=== PATIENT | male | born 1950 | race Caucasian/White ===

== ENCOUNTER 2021-08-23 07:32 | Outpatient (REF) | payer MEDICARE, OTHER, SELFPAY ==
[2021-08-23 10:06] LABS: MANUAL DIFF FLAG NO
[2021-08-23 10:10] LABS: Basophils Percent Auto 0.4 % (0-2); Eosinophils Absolute Auto 0.2 X10*3/uL (0.0-0.4); Eosinophils Percent Auto 2.9 % (0-4); Hematocrit 42.5 % (42-52); Hemoglobin 14.4 g/dl (14.0-18.0); Imm Gran Abs Auto 0.06 X10*3/uL (0.00-0.03); Imm Gran Pct Auto 0.8 % (0.0-0.4); Lymphocytes Absolute Auto 1.3 X10*3/uL (1.2-4.9); Lymphocytes Percent Auto 16.4 % (20-40); Mean Corpuscular HGB Conc 33.9 g/dl (31.0-36.0); Mean Corpuscular Hemoglobin 31.4 pg (27.0-33.0); Mean Corpuscular Volume 92.8 fL (80-98); Mean Platelet Volume 10.4 fL (9.4-12.4); Monocytes Absolute Auto 0.7 X10*3/uL (0.1-1.2); Monocytes Percent Auto 9.4 % (2-11); Neutrophils Absolute Auto 5.5 X10*3/uL (2.0-8.3); Neutrophils Percent Auto 70.1 % (45-73); Platelet Count 186 X10*3/uL (160-400); Red Blood Count 4.58 X10*6/uL (4.60-5.80); Red Cell Distribution Width 12.4 % (11.0-16.0); White Blood Count 7.9 X10*3/uL (4.8-10.8)
[2021-08-23 10:44] LABS: Alanine Aminotransferase 16 U/L (0-40); Albumin Level 4.5 g/dL (3.5-5.0); Alkaline Phosphatase 58 U/L (39-117); Anion Gap 13 (12-20); Aspartate Amino Transferase 17 U/L (5-37); Bilirubin Total 0.7 mg/dL (0.0-1.0); Blood Urea Nitrogen 23 mg/dL (9-16); Calcium 9.4 mg/dL (8.4-10.2); Carbon Dioxide 28 mmol/L (22-29); Chloride 106 mmol/L (96-108); Cholesterol 85 mg/dL; Estimated Glomerular Filt Rate 51; Glucose Fasting 99 mg/dL (60-99); HDL Cholesterol 32 mg/dL; LDL Cholesterol Calculated 38 mg/dl; Potassium 5.1 mmol/L (3.3-5.1); Sodium 142 mmol/L (135-145); Total Protein 7.3 g/dL (6.5-8.0); Triglycerides 75 mg/dL
[2021-08-23 11:00] LABS: Estimated Average Glucose 151 mg/dL; Hemoglobin A1c % 6.9 %
[2021-08-23 11:03] LABS: Prostate Specific Antigen Scr 0.67 ng/mL (<0.05-4.0)
== END 2021-08-23 07:33 | disposition home or self-care (01) ==
LOC: HO.10HDL 07:32
PROVIDERS: Visit Provider Internal Medicine
DX: E11.9 Type 2 diabetes mellitus without complications (principal); I10 Essential (primary) hypertension; Z86.73 Personal history of transient ischemic attack (TIA), and cerebral infarction without residual deficits; Z12.5 Encounter for screening for malignant neoplasm of prostate
CPT/HCPCS: 36415; 80053; 80061; 83036; 84153; 85025

== ENCOUNTER 2021-12-01 08:16 | Outpatient (REF) | payer MEDICARE, OTHER, SELFPAY ==
[2021-12-01 11:03] LABS: Anion Gap 10 (12-20); Blood Urea Nitrogen 25 mg/dL (9-16); Calcium 9.4 mg/dL (8.4-10.2); Carbon Dioxide 29 mmol/L (22-29); Chloride 104 mmol/L (96-108); Estimated Glomerular Filt Rate 43; Glucose Random 307 mg/dL (60-115); Potassium 5.2 mmol/L (3.3-5.1); Sodium 138 mmol/L (135-145)
[2021-12-01 11:37] LABS: Estimated Average Glucose 163 mg/dL; Hemoglobin A1c % 7.3 %
== END 2021-12-01 08:17 | disposition home or self-care (01) ==
LOC: HO.10HDL 08:16
PROVIDERS: Visit Provider Internal Medicine
DX: I12.9 Hypertensive chronic kidney disease with stage 1 through stage 4 chronic kidney disease, or unspecified chronic kidney disease (principal); N18.9 Chronic kidney disease, unspecified; E11.22 Type 2 diabetes mellitus with diabetic chronic kidney disease; Z86.73 Personal history of transient ischemic attack (TIA), and cerebral infarction without residual deficits
CPT/HCPCS: 36415; 80048; 83036

== ENCOUNTER 2022-03-20 07:30 | Outpatient (REF) | payer MEDICARE, OTHER, SELFPAY ==
[2022-03-20 10:17] LABS: MANUAL DIFF FLAG NO
[2022-03-20 10:28] LABS: Basophils Percent Auto 0.6 % (0-2); Eosinophils Absolute Auto 0.3 X10*3/uL (0.0-0.4); Eosinophils Percent Auto 3.7 % (0-4); Hematocrit 41.3 % (42.0-52.0); Hemoglobin 13.9 g/dl (14.0-18.0); Imm Gran Abs Auto 0.03 X10*3/uL (0.00-0.03); Imm Gran Pct Auto 0.4 % (0.0-0.4); Lymphocytes Absolute Auto 1.1 X10*3/uL (1.2-4.9); Mean Corpuscular HGB Conc 33.7 g/dl (31.0-36.0); Mean Corpuscular Hemoglobin 31.8 pg (27.0-33.0); Mean Corpuscular Volume 94.5 fL (80.0-98.0); Mean Platelet Volume 10.7 fL (9.4-12.4); Monocytes Absolute Auto 0.6 X10*3/uL (0.1-1.2); Monocytes Percent Auto 8.2 % (2-11); Neutrophils Absolute Auto 4.9 x10*3/uL (2.0-8.3); Neutrophils Percent Auto 71.1 % (45-73); Platelet Count 182 X10*3/uL (160-400); Red Blood Count 4.37 X10*6/uL (4.60-5.80); Red Cell Distribution Width 12.2 % (11.0-16.0)
[2022-03-20 10:43] LABS: Estimated Average Glucose 169 mg/dL; Hemoglobin A1c % 7.5 %
[2022-03-20 11:05] LABS: Alanine Aminotransferase 22 U/L (0-40); Albumin Level 4.1 g/dL (3.5-5.0); Alkaline Phosphatase 56 U/L (39-117); Anion Gap 14 (12-20); Aspartate Amino Transferase 20 U/L (5-37); Bilirubin Total 0.6 mg/dL (0.0-1.0); Blood Urea Nitrogen 31 mg/dL (9-16); Calcium 9.3 mg/dL (8.4-10.2); Carbon Dioxide 24 mmol/L (22-29); Chloride 104 mmol/L (96-108); Estimated Glomerular Filt Rate 38; Glucose Random 289 mg/dL (60-115); Potassium 6.1 mmol/L (3.3-5.1); Sodium 136 mmol/L (135-145); Total Protein 7.1 g/dL (6.5-8.0)
== END 2022-03-20 07:31 | disposition home or self-care (01) ==
LOC: HO.10HDL 07:30
PROVIDERS: Visit Provider Internal Medicine
DX: E11.22 Type 2 diabetes mellitus with diabetic chronic kidney disease (principal); I12.9 Hypertensive chronic kidney disease with stage 1 through stage 4 chronic kidney disease, or unspecified chronic kidney disease; N18.9 Chronic kidney disease, unspecified
CPT/HCPCS: 36415; 80053; 83036; 85025

== ENCOUNTER 2022-03-22 07:35 | Outpatient (REF) | payer MEDICARE, OTHER, SELFPAY ==
[2022-03-22 10:37] LABS: Anion Gap 15 (12-20); Blood Urea Nitrogen 30 mg/dL (9-16); Calcium 9.3 mg/dL (8.4-10.2); Carbon Dioxide 22 mmol/L (22-29); Chloride 106 mmol/L (96-108); Estimated Glomerular Filt Rate 40; Glucose Random 195 mg/dL (60-115); Potassium 5.3 mmol/L (3.3-5.1); Sodium 138 mmol/L (135-145)
== END 2022-03-22 07:36 | disposition home or self-care (01) ==
LOC: HO.10HDL 07:35
PROVIDERS: Visit Provider Internal Medicine
DX: E87.5 Hyperkalemia (principal)
CPT/HCPCS: 36415; 80048

== ENCOUNTER 2022-05-03 07:47 | Outpatient (REF) | payer MEDICARE, OTHER, SELFPAY ==
[2022-05-03 10:45] LABS: Alanine Aminotransferase 18 U/L (0-40); Albumin Level 4.3 g/dL (3.5-5.0); Alkaline Phosphatase 56 U/L (39-117); Anion Gap 13 (12-20); Aspartate Amino Transferase 16 U/L (5-37); Bilirubin Total 0.6 mg/dL (0.0-1.0); Blood Urea Nitrogen 31 mg/dL (9-16); Calcium 9.4 mg/dL (8.4-10.2); Carbon Dioxide 28 mmol/L (22-29); Chloride 103 mmol/L (96-108); Estimated Glomerular Filt Rate 35; Glucose Random 276 mg/dL (60-115); Potassium 5.6 mmol/L (3.3-5.1); Sodium 138 mmol/L (135-145); Total Protein 7.2 g/dL (6.5-8.0)
[2022-05-03 10:49] LABS: Estimated Average Glucose 157 mg/dL; Hemoglobin A1c % 7.1 %
== END 2022-05-03 07:48 | disposition home or self-care (01) ==
LOC: HO.10HDL 07:47
PROVIDERS: Visit Provider Internal Medicine
DX: E11.22 Type 2 diabetes mellitus with diabetic chronic kidney disease (principal); N18.9 Chronic kidney disease, unspecified
CPT/HCPCS: 36415; 80053; 83036

== ENCOUNTER 2022-07-05 09:49 | Outpatient (REF) | payer MEDICARE, OTHER, SELFPAY ==
[2022-07-05 10:51] LABS: MANUAL DIFF FLAG NO
[2022-07-05 11:02] LABS: Basophils Percent Auto 0.4 % (0-2); Eosinophils Absolute Auto 0.1 X10*3/uL (0.0-0.4); Eosinophils Percent Auto 1.1 % (0-4); Hematocrit 40.1 % (42.0-52.0); Hemoglobin 13.7 g/dl (14.0-18.0); Imm Gran Abs Auto 0.07 X10*3/uL (0.00-0.03); Imm Gran Pct Auto 0.9 % (0.0-0.4); Lymphocytes Absolute Auto 0.9 X10*3/uL (1.2-4.9); Lymphocytes Percent Auto 12.4 % (20-40); Mean Corpuscular HGB Conc 34.2 g/dl (31.0-36.0); Mean Corpuscular Hemoglobin 31.6 pg (27.0-33.0); Mean Corpuscular Volume 92.6 fL (80.0-98.0); Mean Platelet Volume 9.6 fL (9.4-12.4); Monocytes Absolute Auto 0.7 X10*3/uL (0.1-1.2); Monocytes Percent Auto 8.9 % (2-11); Neutrophils Absolute Auto 5.6 x10*3/uL (2.0-8.3); Neutrophils Percent Auto 76.3 % (45-73); Platelet Count 298 X10*3/uL (160-400); Red Blood Count 4.33 X10*6/uL (4.60-5.80); Red Cell Distribution Width 11.9 % (11.0-16.0); White Blood Count 7.4 X10*3/uL (4.8-10.8)
[2022-07-05 11:09] LABS: Estimated Average Glucose 174 mg/dL; Hemoglobin A1c % 7.7 %
[2022-07-05 11:21] LABS: Alanine Aminotransferase 50 U/L (0-40); Albumin Level 4.3 g/dL (3.5-5.0); Alkaline Phosphatase 53 U/L (39-117); Aspartate Amino Transferase 23 U/L (5-37); Bilirubin Total 0.4 mg/dL (0.0-1.0); Blood Urea Nitrogen 34 mg/dL (9-16); Calcium 9.2 mg/dL (8.4-10.2); Estimated Glomerular Filt Rate 36; Glucose Random 283 mg/dL (60-115); Total Protein 7.3 g/dL (6.5-8.0)
[2022-07-05 11:36] LABS: Anion Gap 15 (12-20); Carbon Dioxide 26 mmol/L (22-29); Chloride 104 mmol/L (96-108); Potassium 6.9 mmol/L (3.3-5.1); Sodium 138 mmol/L (135-145)
== END 2022-07-05 09:50 | disposition home or self-care (01) ==
LOC: HO.10HDL 09:49
PROVIDERS: Visit Provider Internal Medicine
DX: Z13.89 Encounter for screening for other disorder (principal)
CPT/HCPCS: 36415; 80053; 83036; 85025

== ENCOUNTER 2022-07-05 17:02 | Emergency (ER) | payer MEDICARE, OTHER, SELFPAY ==
[2022-07-05 17:44] VITALS: BP 214/104; PULSE 90; RESP 18; TEMP 37.1; O2SAT 97; BMI 25.8
--- NOTE | 2022-07-05 17:47 | ECG_ITS ---
Test Reason : hpyertention / high potassium Blood Pressure : / mmHG Vent. Rate : 096 BPM Atrial Rate : 096 BPM P-R Int : 158 ms QRS Dur : 126 ms QT Int : 372 ms P-R-T Axes : 043 050 035 degrees QTc Int : 469 ms Normal sinus rhythm Right bundle branch block Abnormal ECG No previous ECGs available Referred By: Generic ED Physician Electronically Signed By:LESLEE CHAPIN
[2022-07-05 17:59] LABS: MANUAL DIFF FLAG NO
[2022-07-05 18:02] LABS: Basophils Percent Auto 0.3 % (0-2); Eosinophils Absolute Auto 0.1 X10*3/uL (0.0-0.4); Eosinophils Percent Auto 1.1 % (0-4); Hematocrit 39.8 % (42.0-52.0); Hemoglobin 13.4 g/dl (14.0-18.0); Imm Gran Abs Auto 0.05 X10*3/uL (0.00-0.03); Imm Gran Pct Auto 0.6 % (0.0-0.4); Lymphocytes Absolute Auto 1.1 X10*3/uL (1.2-4.9); Lymphocytes Percent Auto 14.3 % (20-40); Mean Corpuscular HGB Conc 33.7 g/dl (31.0-36.0); Mean Corpuscular Hemoglobin 31.3 pg (27.0-33.0); Mean Platelet Volume 9.1 fL (9.4-12.4); Monocytes Absolute Auto 0.7 X10*3/uL (0.1-1.2); Monocytes Percent Auto 9.3 % (2-11); Neutrophils Absolute Auto 5.9 x10*3/uL (2.0-8.3); Neutrophils Percent Auto 74.4 % (45-73); Platelet Count 281 X10*3/uL (160-400); Red Blood Count 4.28 X10*6/uL (4.60-5.80); White Blood Count 7.9 X10*3/uL (4.8-10.8)
--- NOTE | 2022-07-05 18:13 | ED_ITS ---
HPI - General Adult General Chief complaint: Recheck/Abnormal Lab/Rx Stated complaint: abnormal labs sent by dr Montague Seen by Provider: 07/05/22 17:58 Source: patient Mode of arrival: ambulatory Limitations: no limitations History of Present Illness HPI narrative: Patient comes to the emergency room after he has his physical exam today. Blood was drawn, he was told that his potassium was 6.9 and it took him to the emergency room. Patient states that he is asymptomatic. Patient states in the past he has been told multiple times that his potassium has been high, asked to go to the lab for return labs, patient over her back. Patient denies any chest pain or shortness of breath. Reviewing possibilities of patient's source of hyperkalemia, patient takes lisinopril daily, eats bananas and tomatoes daily and protein shakes without a high amount of potassium Related Data Previous Rx's Medication Instructions Recorded amlodipine 10 mg tablet 10 mg PO DAILY #30 tabs 07/05/22 Allergies Allergy/AdvReac Type Severity Reaction Status Date / Time No Known Allergies Allergy Verified 07/05/22 17:44 Review of Systems Review of Systems: Constitutional : No Weight loss, No Fever, No Chills, No Night Sweats, No Fatigue, No Malaise ENT/Mouth : No Hearing loss, No Ear Pain, No Nasal Congestion, No Sinus Pain, No Hoarseness, No sore throat, No Rhinorrhea, No Swallowing Difficulty Eyes: No Eye Pain, No Swelling, No Redness, No Foreign Body, No Discharge, No Vision Changes Cardiovascular : No Chest Pain, No SOB, No Dyspnea on Exertion, No Orthopnea, No Edema, No Palpitations Respiratory : No Cough, No Sputum, No Wheezing, No Smoke Exposure, No Dyspnea Gastrointestinal : No Nausea, No Vomiting, No Diarrhea, No Constipation, No abdominal Pain, No Hematochezia, No Melena Genitourinary : no irregular bleeding, No Dysuria, No Urinary Frequency, No Hematuria, No Urinary Incontinence, No Urgency, No Flank Pain, No Urinary Flow Changes, No Hesitancy Musculoskeletal : No joint pain, No Myalgias, No Joint Swelling Skin : No Skin Lesions, No rash Neuro : No Weakness, No Numbness, No Paresthesias, No Loss of Consciousness, No Dizziness, No Headache Psych : No Anxiety/Panic, No Depression, No SI/HI/AH/VH, No Social Issues, Heme/Lymph: No Bruising, No Bleeding,No Lymphadenopathy Endocrine : No Polyuria, No Polydipsia, No Temperature Intolerance REPLACED BY [facility] Past Medical History Medical History Hypertension Social History Social History Advance Directives: No Advance Directives Information Provided: No Physical Exam ED Vital Signs: Vital Signs - 24 hr 07/05/22 17:44 07/05/22 18:43 07/05/22 20:16 Temperature 98.8 F Pulse Rate 90 89 99 Respiratory Rate 18 18 18 Blood Pressure 214/104 H 183/88 H Pulse Oximetry 97 Oxygen Delivery Method Room Air BMI result Body Mass Index 25.8 Const Other: Appearance: Alert. Oriented X3. No acute distress. Eyes: Pupils equal, round and reactive to light. ENT: Pharynx normal. Neck: Normal inspection. Neck supple. No lymph nodes noted. No crepitus CVS: Normal heart rate and rhythm. Pulses normal. Normal S1 and S2 Respiratory: No respiratory distress. Breath sounds normal. No Wheezing. No rales Abdomen: Soft and nontender. No rigidity. No distention. Skin: Skin warm and dry. Normal skin color. Normal skin turgor. Extremities: No lower extremity edema. No Lacerations. No Rash Neuro: Oriented X 3. No motor deficit. No sensory deficit. Moving all ex tremities. No slurred speech. CN 2 through 12 grossly intact Psych: calm, cooperative, normal affect Course Course Course Narrative: Patient's blood pressure is 214/104. EKG does not show any peaked T-waves. Patient is asymptomatic. Repeat labs are pending. Patient's repeat potassium is 7.0. We will go ahead and treat. Patient will receive IV fluids, albuterol neb, 2 g of calcium gluconate, D50 and insulin and an amp of sodium bicarb, patient remains asymptomatic Patient's blood pressure remains 214 systolic patient receiving p.o. labetalol. I discussed with the patient that we will change his blood pressure medication, take lisinopril, likely contributing to the hyperkalemia. Patient's potassium improved to 5.3. Patient remains asymptomatic. Patient will be starting tomorrow amlodipine. Medical Decision Making Lab Data Result diagrams: 07/05/22 17:54 07/05/22 20:24 Labs: Lab Results 07/05/22 07/05/22 07/05/22 Range/Units 17:54 17:54 17:54 WBC 7.9 (4.8-10.8) X10*3/uL RBC 4.28 L (4.60-5.80) X10*6/uL Hgb 13.4 L (14.0-18.0) g/dl Hct 39.8 L (42.0-52.0) % MCV 93.0 (80.0-98.0) fL MCH 31.3 (27.0-33.0) pg MCHC 33.7 (31.0-36.0) g/dl RDW 12.0 (11.0-16.0) % Plt Count 281 (160-400) X10*3/uL MPV 9.1 L (9.4-12.4) fL Immature Gran % (Auto) 0.6 H (0.0-0.4) % Neut % (Auto) 74.4 H (45-73) % Lymph % (Auto) 14.3 L (20-40) % [place] % (Auto) 9.3 (2-11) % Eos % (Auto) 1.1 (0-4) % Baso % (Auto) 0.3 (0-2) % Lymph # (Auto) 1.1 L (1.2-4.9) X10*3/uL [place] # (Auto) 0.7 (0.1-1.2) X10*3/uL Eos # (Auto) 0.1 (0.0-0.4) X10*3/uL Baso # (Auto) 0.0 (0.0-0.2) X10*3/uL Abs Immat Gran (auto) 0.05 H (0.00-0.03) X10*3/uL Absolute Neuts (auto) 5.9 (2.0-8.3) x10*3/uL Absolute Nucleated RBC 0.000 (0.0-0.012) X10*3/uL Nucleated RBC % (auto) 0.0 (0.0-0.2) /100WBC Sodium 141 (135-145) mmol/L Potassium 7.0 H* (3.3-5.1) mmol/L Chloride 107 (96-108) mmol/L Carbon Dioxide 25 (22-29) mmol/L Anion Gap 16 (12-20) BUN 34 H (9-16) mg/dL Creatinine 1.80 H (0.5-1.4) mg/dL Estim Creat Clear Calc 38.3 Estimated GFR 37 Random Glucose 143 H D (60-115) mg/dL Calcium 9.0 (8.4-10.2) mg/dL Troponin I High Sens 4.5 (<3.5-35.0) ng/L 07/05/22 Range/Units 20:24 WBC (4.8-10.8) X10*3/uL RBC (4.60-5.80) X10*6/uL Hgb (14.0-18.0) g/dl Hct (42.0-52.0) % MCV (80.0-98.0) fL MCH (27.0-33.0) pg MCHC (31.0-36.0) g/dl RDW (11.0-16.0) % Plt Count (160-400) X10*3/uL MPV (9.4-12.4) fL Immature Gran % (Auto) (0.0-0.4) % Neut % (Auto) (45-73) % Lymph % (Auto) (20-40) % [place] % (Auto) (2-11) % Eos % (Auto) (0-4) % Baso % (Auto) (0-2) % Lymph # (Auto) (1.2-4.9) X10*3/uL [place] # (Auto) (0.1-1.2) X10*3/uL Eos # (Auto) (0.0-0.4) X10*3/uL Baso # (Auto) (0.0-0.2) X10*3/uL Abs Immat Gran (auto) (0.00-0.03) X10*3/uL Absolute Neuts (auto) (2.0-8.3) x10*3/uL Absolute Nucleated RBC (0.0-0.012) X10*3/uL Nucleated RBC % (auto) (0.0-0.2) /100WBC Sodium 142 (135-145) mmol/L Potassium 5.3 H D (3.3-5.1) mmol/L Chloride 107 (96-108) mmol/L Carbon Dioxide 28 (22-29) mmol/L Anion Gap 12 (12-20) BUN 32 H (9-16) mg/dL Creatinine 1.80 H (0.5-1.4) mg/dL Estim Creat Clear Calc 38.3 Estimated GFR 37 Random Glucose 235 H D (60-115) mg/dL Calcium 8.9 (8.4-10.2) mg/dL Troponin I High Sens (<3.5-35.0) ng/L Critical Care Time Critical Care Time Critical Care Time: Yes Total Critical Care Time: 40 Attestation: I have personally provided critical care time. Time includes review of lab data, radiology results, discussion with consultants, and monitoring for potential decompensation. Intervention performed as documented. Discharge Plan Discharge Clinical Impression: Acute hyperkalemia, Hypertension Patient Disposition: Home, Self-Care Instructions: Hyperkalemia (ED) Additional Instructions: Please avoid foods high in potassium such as beans, potatoes, squash, spinach, broccoli, avocado, bananas. Please follow-up with your primary care physician tomorrow. If you have any worsening or new symptoms, please return to the emergency room or call 911 Prescriptions: New amlodipine 10 mg tablet 10 mg PO DAILY Qty: 30 1RF
[2022-07-05 18:20] LABS: Troponin-I High Sensitivity 4.5 ng/L (<3.5-35.0)
[2022-07-05 18:26] LABS: Anion Gap 16 (12-20); Blood Urea Nitrogen 34 mg/dL (9-16); Carbon Dioxide 25 mmol/L (22-29); Chloride 107 mmol/L (96-108); Creatinine Clr Calc Pharmacy 38.3; Estimated Glomerular Filt Rate 37; Glucose Random 143 mg/dL (60-115); Sodium 141 mmol/L (135-145)
[2022-07-05] MEDS: Albuterol Sulfate (0.083%) 2.5 MG/3 ML VIAL.NEB INHALE (18:42)
[2022-07-05 18:43] VITALS: PULSE 89; RESP 18; O2SAT 97
[2022-07-05] MEDS: Labetalol HCL 100 MG TABLET PO (18:59)
[2022-07-05] MEDS: Calcium Gluconate/NaCl,Iso-Osm 2 GM/100 ML PLAST..BAG IV (18:59)
[2022-07-05] MEDS: 0.9 % Sodium Chloride 1,000 ML 999 ML IVCONT (18:59)
[2022-07-05] MEDS: Sodium Bicarbonate 8.4% 50 MEQ/50 ML SYRINGE IVPUSH (19:00)
[2022-07-05] MEDS: Insulin Regular, Human 100 UNIT/ML 3 ML VIAL 10 UNIT IVPUSH (19:13)
[2022-07-05] MEDS: Dextrose 50 % 25 GM/50 ML SYRINGE IVPUSH (19:15)
[2022-07-05 20:16] VITALS: BP 183/88; PULSE 99; RESP 18
[2022-07-05 20:58] LABS: Anion Gap 12 (12-20); Blood Urea Nitrogen 32 mg/dL (9-16); Calcium 8.9 mg/dL (8.4-10.2); Carbon Dioxide 28 mmol/L (22-29); Chloride 107 mmol/L (96-108); Creatinine Clr Calc Pharmacy 38.3; Estimated Glomerular Filt Rate 37; Glucose Random 235 mg/dL (60-115); Potassium 5.3 mmol/L (3.3-5.1); Sodium 142 mmol/L (135-145)
== END 2022-07-05 22:32 | disposition home or self-care (01) ==
PROVIDERS: Emergency Provider Emergency Medicine; PCP Internal Medicine
DX: E87.5 Hyperkalemia (principal); I10 Essential (primary) hypertension
CPT/HCPCS: 36415; 80048; 80053; 83036; 84484; 85025; 93005; 94640; 96374; 96375; 99284; 99285; J0610

== ENCOUNTER 2025-04-10 10:25 | Outpatient (AMB) | payer MEDICARE, OTHER, SELFPAY ==
--- NOTE | 2025-04-10 10:29 | AM.OFFWIN_ITS ---
Intake Vital Signs 04/10/25 10:38 04/10/25 10:53 Weight 164 lb BP 200/100 H 180/90 H Blood Pressure Location Lt brachial Lt brachial Position Sitting Sitting Pulse 132 H 126 H Pulse Source Pulse Oximeter Pulse Oximetry (%) 97 Oxygen Delivery Method Room Air Intake Visit Reasons: [employer] GENERAL BP & sugar check Intake Note: Patient here for difficulty word finding that started yesterday. Patient Tobacco Use Status: Former Tobacco user Allergies No Known Allergies Allergy (Verified 04/10/25 10:42) Do you need a note to return to daycare/school/sports/work: No HPI HPI Comments History of Present Illness Details 74 y/o Male patient who presents to the walk in clinic with c/o difficulty word finding and speech changes since Yesterday. Pt accompanied by who provides history today. Pt does have h/o Seizures, T2DM on Insulin, HTN and HDL. Pt has not seen his PCP since 2021 (His PCP Retired). Per he has been compliant with his medications. He does give himself Insulin 20 units every morning 11 am - he has received it today because he came to the walk in clinic for check up. In-office BG check >HHHH on Glucometer unable to determine. BP reading and HR this Morning elevated. Per Patient is compliant with his medication regiment. Pt denies Headaches, Dizziness, CP, paralysis or SOB. Pt is visually unable to form and find words when asked questions. Neuro exam WNL. [facility], [facility] Medical History (Updated 04/10/25 @ 11:46 by Fara Vernon, VAISHNAVI) Word finding difficulty Hypertension Social History Patient Tobacco Use Status: Former Tobacco user Review of Systems Const All systems reviewed & are unremarkable except as noted in HPI and below Neuro Reports Abnormal speech present Physical Exam Vital Signs: Last Vital Signs Pulse 126 H 04/10/25 10:53 BP 180/90 H 04/10/25 10:53 Pulse Ox 97 04/10/25 10:38 Oxygen Delivery Method Room Air 04/10/25 10:38 Const Other: Word finding difficult - Pt frustrated at times. Patient sitting on exam table, comfortable and no acute distress. General: comfortable, no acute distress, alert and awake Nutritional Appearance: thin HEENT Head: Yes normocephalic Ears: external ears normal General nose exam: Normal external nose present Face and sinus: Yes normal facial exam and Yes face symmetric Eyes Pupils: Equal, round and reactive pupils present Resp Effort & Inspection: normal respiratory effort Auscultation: clear to auscultation bilaterally Cardio Heart sounds: S1 normal heart sound present and S2 normal heart sound present Neuro General: gait normal and moves all extremities Cranial nerves: Yes Equal, round and reactive pupils present Speech: Abnormal speech present stuttering Details: anomia Motor exam (neuro): 5/5 motor strength present throughout Assessment & Plan Assessment & Plan (1) Word finding difficulty: Code(s): R47.89 - Other speech disturbances Plan: Advised Pt to go to ED for further evaluation. In office BG machine unable to register. Pt has not received his Morning Insulin. Usually gives himself 20 units every 11 am. DDx's: ?Stroke vs Seizure vs Hyperglycemia vs HTN crisis Coding Level of Care Code New Pt Level 5 (58633) Diagnoses Word finding difficulty R47.89 Time Spent (min) 25
[2025-04-10 10:38] VITALS: BP 200/100; PULSE 132; O2SAT 97
[2025-04-10 10:53] VITALS: BP 180/90; PULSE 126
== END 2025-04-10 11:14 | disposition home or self-care (01) ==
PROVIDERS: PCP Internal Medicine; Visit Provider Nurse Practitioner Family
DX: R47.89 Other speech disturbances (principal)

== ENCOUNTER → 2025-04-10 10:25 | Outpatient (BNVA) | payer MEDICARE, OTHER, SELFPAY | PROVIDERS: PCP Internal Medicine; Visit Provider Nurse Practitioner Family | DX: Z13.89 Encounter for screening for other disorder (principal) | CPT/HCPCS: 99202 ==

== ENCOUNTER 2025-04-10 11:34 | Inpatient (IN) | payer MEDICARE, OTHER, SELFPAY ==
[2025-04-10] VITALS (8 sets, daily range): BP systolic 162–202; BP diastolic 78–110; PULSE 95–132; RESP 18; TEMP 36.3–37.2; O2SAT 94–97; BMI 26.2
--- NOTE | ~2025-04-10 | CT_ITS ---
EXAMINATION: CT HEAD WITHOUT IV CONTRAST STROKE HISTORY: expressive aphasia. TECHNIQUE: Unenhanced helical CT of the head was performed per standard departmental protocol. Coronal and sagittal reformats of the head were also evaluated. One or more of the following techniques was used for dose reduction: Automated exposure control, adjustment of the mA and/or kV according to patient size, use of iterative reconstruction technique. DLP: 1100 mGy-cm COMPARISON: There are no prior studies for comparison. FINDINGS: BRAIN: There is diffuse prominence of the ventricular system and cortical sulci, consistent with atrophy. Periventricular and subcortical white matter hypodensities are noted which are nonspecific, but often seen in the setting of small vessel ischemic disease. There is no mass effect or midline shift. No intra- or extra-axial fluid collections are identified. SINUSES: The visualized paranasal sinuses are clear. The mastoid air cells and middle ear cavities are well pneumatized. ORBITS: The visualized orbits are unremarkable. BONES/SOFT TISSUES: The extracranial soft tissues are unremarkable. The calvarium is intact. No suspicious lytic or sclerotic lesions. CT/CT head for STROKE IMPRESSION: No acute intracranial abnormality. These findings were discussed with WILLA Lobo in the emergency room on 04/10/2025 at 12:30 PM. Electronically signed by: Arben Villarreal MD 04/10/2025 12:31 PM EDT
--- NOTE | ~2025-04-10 | MR_ITS ---
EXAMINATION: MR BRAIN WITHOUT CONTRAST CLINICAL INFORMATION: Expressive aphasia. Rule out stroke. COMPARISON: Correlation made with CT and CT angiogram head earlier same day. TECHNIQUE: MRI of the brain was obtained using routine sequences without contrast. Examination performed on a 1.5 Edna Siemens high-field unit. FINDINGS: Small area of acute diffusion restriction involving the left posterior frontal operculum and temporal lobe. This area measures maximally approximately 2.4 x 1.8 cm. There are a few associated tiny foci of diffusion restriction in the left precentral and postcentral gyri, and subinsular cortex posteriorly. There is no intracranial hemorrhage, mass effect, or edema. Ventricles, sulci, and cisterns are somewhat diffusely prominent, in keeping with mildly age advanced cerebral and cerebellar volume loss. No shift of midline. There is small amount of hemosiderin deposition in the left medial cerebellum, in the region of old lacunar infarction. There are punctate foci of left frontoparietal lobe hemosiderin deposition, likely old hemorrhage. Old lacunar type infarcts medial left cerebellum, and left thalamus. There are a scattered punctate and confluent foci of white matter T2 hyperintensity in the periventricular, subcortical, and hemispheric deep white matter. These foci are nonspecific but most likely relates to moderate changes of small vessel ischemia. Midline structures appear normally formed. The pituitary gland appears normal. Posterior fossa structures appear normal. Cerebellar tonsils are appropriately located. Major flow voids are preserved within the skull base. The globes and orbital contents demonstrate no abnormalities. Paranasal sinuses are clear bilaterally. The mastoids and tympanic cavities are normally aerated. Extracranial soft tissues demonstrate no abnormalities. No suspicious bone marrow changes are evident. Atlantoaxial joint is intact, demonstrates mild degenerative arthritis. MR/MR head/brain wo con IMPRESSION: 1. Patchy small foci of acute/subacute infarction involving the left posterior frontal operculum, left parietal lobe, and posterior left insular cortex. Largest area of infarction measures approximately 2.4 x 1.8 cm. 2. No evidence of acute intracranial hemorrhage, significant mass effect or edema. No midline shift. 3. Mildly age advanced cerebral and cerebellar volume loss. 4. Moderate changes of small vessel ischemia. 5. There are old lacunar type infarcts in the left medial cerebellum, and left thalamus. Electronically signed by: Chalo Wilson MD 04/10/2025 04:40 PM EDT
--- NOTE | ~2025-04-10 | CT_ITS ---
EXAMINATION: CTA NECK WITH CONTRAST (STROKE) CTA BRAIN WITH CONTRAST (STROKE) CLINICAL INFORMATION: Expressive aphasia COMPARISON: Correlated to CT brain dated April 10, 2025. TECHNIQUE: CTA of the head and neck was performed in the axial plane from the mediastinum to the skull vertex using 70 mL Omnipaque 350 intravenous contrast. Additional reformatted multiplanar images including maximum intensity projection MIP images are generated on the CT workstation. This CT examination was performed using dose optimization techniques as appropriate, variously including the following: *Automated exposure control *Adjustment of mA and/or kV according to patient size (this includes techniques or standardized protocols for targeted exams where dose is matched to indication/reason for exam; i.e. extremities or head) *Use of iterative reconstruction technique. DLP: 720 mGy centimeter. FINDINGS: The degree of stenosis determined by criteria similar to NASCET. Brain: Please refer to the CT brain report on a separate dictation. Limited by patient's motion artifact. Chest CTA: The aortic arch is not fully included in the [id number]. No gross focal stenosis or aneurysm or intimal flap. Neck CTA: Right CCA: Normal patency. No focal stenosis. No intimal flap. Calcified plaque in the distal segment. Right ICA: Limited evaluation due to motion artifact. Mixed plaques in the proximal segment probably representing 70-80% stenosis. No gross intimal flap. There is patency. Left CCA: Tortuosity. Normal patency. No focal stenosis. No intimal flap. Left ICA: Limited evaluation due to patient's motion artifact. Mixed plaques in the proximal segment representing 70-80% stenosis. No intimal flap. V1/V2 segments are patent without gross focal stenosis or intimal flap. Codominant vertebral arteries. Brain CTA: Anterior cerebral circulation: ICAs: Calcified plaques in the cavernous supracavernous segments. Normal patency. No abrupt cut off. MCA's: Normal patency. No focal stenosis. No abrupt cut off. Bifurcation/trifurcation demonstrated no gross vascular abnormality. ACAs: Normal patency. No focal stenosis. No abrupt cut off. Ophthalmic arteries are patent. Anterior communicating artery is patent. Left posterior communicating artery is patent. Posterior cerebral circulation: V3/V4 segments are patent without focal stenosis or intimal flap. There is likely a common trunk for the right anterior inferior and posterior inferior cerebellar arteries. Left PICA, is patent without gross abnormality. Basilar artery is patent without focal stenosis or intimal flap. Superior cerebellar arteries are patent. resolution specialist: Normal patency. No focal stenosis. No abrupt cut off. Small caliber, left T1 segment. CT/CT angio head neck STROKE IMPRESSION: Limited by patient's motion artifact. Irregular calcified plaques, proximal right ICA likely representing 70-80% stenosis. Mixed plaques, proximal left ICA likely representing 70-80% stenosis. No dissection. Codominant vertebral arteries. No main cerebral artery occlusion or embolus. This critical test result is communicated to: Emergency physician Dr. Wil Veloz and April 10, 2025 at 12:31 PM Electronically signed by: Tk Nava MD 04/10/2025 12:38 PM EDT
--- NOTE | 2025-04-10 11:53 | ED.GENADULT ---
HPI - General Adult General Chief complaint: Stroke Stated complaint: Difficulty speaking Time Seen by Provider: 04/10/25 11:56 History of Present Illness ED Provider: Wil Veloz MD HPI narrative: 74-year-old male who arrived for neurologic symptoms. Patient was a poor historian himself I got additional history from his who is a very good historian. 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 She said last night from 20:00 to 815 she noted to slurred speech that resolved completely. They went to bed and she woke up performed this morning. He woke up at 06:30 and was at his baseline normal. He dressed himself came down to the kitchen made a cup of coffee she noticed it about 07:30 that he was responding to her questions inappropriately with word salad or gibberish. No slurring of the speech she did not notice any facial droop or motor deficits and she said his gait was normal. She then took him to urgent care upon recognizing expressive aphasia he was sent here for evaluation. Upon arrival he is confused disoriented appears to have expressive aphasia and difficulty understanding and expressing himself but no dysarthria. NIH stroke scale on arrival 3 see below. He denied any complaints or falls Related Data Home Medications ?Medication ?Instructions ?Recorded ?Confirmed aspirin 81 mg tablet,delayed 81 mg PO DAILY 04/10/25 04/10/25 release insulin glargine 100 unit/mL (3 16 unit subcut DAILY 04/10/25 04/10/25 mL) subcutaneous pen (Basaglar KwikPen U-100 Insulin) rosuvastatin 20 mg tablet 20 mg PO BEDTIME 04/10/25 04/10/25 Previous Rx's ?Medication ?Instructions ?Recorded amlodipine 10 mg tablet 10 mg PO DAILY #30 tabs 07/05/22 levetiracetam 750 mg tablet 750 mg PO BID #180 tabs 03/06/25 pen needle, diabetic 32 gauge x #100 ea 03/16/25 Allergies Allergy/AdvReac Type Severity Reaction Status Date / Time No Known Allergies Allergy Verified 04/10/25 11:49 [facility] Past Medical History Medical History (Updated 04/10/25 @ 18:58 by WILLA Ramirez) CVA (cerebral vascular accident) Uncontrolled diabetes mellitus with hyperglycemia Insulin dependent type 2 diabetes mellitus HLD (hyperlipidemia) Word finding difficulty Hypertension Social History Social History Housing: House Alcohol intake: never Patient Tobacco Use Status: Former Tobacco user Second Hand Smoke Exposure: No service: No Physical Exam ED Vital Signs: Vital Signs - 24 hr 04/10/25 11:46 04/10/25 12:24 04/10/25 12:32 Temperature 97.8 F Pulse Rate 132 H 130 H 115 H Respiratory Rate 18 18 Blood Pressure 192/110 H 202/96 H 202/96 H Pulse Oximetry 95 94 Oxygen Delivery Method Room Air 04/10/25 12:35 Temperature Pulse Rate 108 H Respiratory Rate 18 Blood Pressure 164/87 H Pulse Oximetry 94 Oxygen Delivery Method Room Air BMI result Body Mass Index 26.2 Const Other: GENERAL: Well appearing. No apparent distress. Alert. HEAD/NECK: Normal to inspection. Neck supple. No cervical lymphadenopathy. EYES: Normal to inspection. Sclera non-icteric. ENMT: External nose normal. RESPIRATORY: Respiratory effort normal. Lungs clear to auscultation bilaterally. CARDIOVASCULAR: Regular rate. Normal rhythm. No murmur. No rubs. GI: Soft, non-tender, non-distended. No rebound or guarding. No masses palpable. No hepatosplenomegaly. SKIN: No jaundice. NEUROLOGICAL: Alert. PSYCHIATRIC: Alert. Appearance appropriate for situation. Attitude cooperative. OTHER: Comprehensive Neuro exam: Subtle flattening of the right nasolabial fold. Awake but slightly confused. Follows some commands others appears confused about. tongue midline, strong symmetric eye closure, pupils symmetric and reactive to light, intact sensation to the face throughout, intact strong face deviation and shoulder shrug. Sensation intact to light touch throughout Aside from a slight pronator drift on the right side he is strong throughout: 5 out of 5 strength in bilateral upper extremities, 5 and 5 strength in lower extremities NIH Stroke Scale Internal: Initial- Upon Arrival Time: 12:00 Level of Consciousness: Alert Level of Consciousness Questions: Answers both questions correctly Level of Consciousness Commands: Performs both tasks correctly Best Gaze: Normal Visual: No visual loss Facial Palsy: Minor paralyis Motor Arm (Right): Drift Motor Arm (Left): No drift Motor Leg (Right): No drift Motor Leg (Left): No drift Limb Ataxia: Absent Sensory: Normal Best Language: Mild to moderate aphasia Dysarthia: Normal Extinction and Inattention: No abnormality Score: 3 Course Course Course Narrative: RME, this is a rapid medical exam performed by Silvano Potts please refer to primary provider for complete H&P- 74-year-old male presents for evaluation of word-finding difficulties. Per his is symptoms started a 8:00 p.m. last night and seemed to improve but returned this morning. He has no facial asymmetry or weakness. He does have some expressive aphasia on exam and difficulty following simple commands, especially shrugging his shoulders. He does have previous history of CVA. Plan for stroke workup. Patient brought back to CT scan for stroke rule out. Medications Administered Generic Name Dose Route Start Last Admin Trade Name Freq PRN Reason Stop Dose Admin Aspirin 81 mg 04/10/25 15:25 04/11/25 09:04 Aspirin Enteric Coated 81 Mg Tablet.Dr PO 81 mg DAILY JENELLE Administration Atorvastatin Calcium 80 mg 04/10/25 21:00 04/11/25 21:06 Atorvastatin Calcium 80 Mg Tablet PO 80 mg BEDTIME JENELLE Administration Enoxaparin Sodium 40 mg 04/10/25 15:00 04/11/25 16:55 Enoxaparin Sodium 40 Mg/0.4 Ml Syringe SUBCUT 40 mg Q24H JENELLE Administration Insulin Glargine 15 unit 04/11/25 09:00 04/11/25 09:02 Insulin Glargine,Hum.Rec.Anlog 100 Unit/Ml 10 Ml Vial SUBCUT 15 unit DAILY JENELLE Administration Insulin Human Lispro 0 unit 04/10/25 16:30 04/11/25 21:07 Insulin Lispro 100 Unit/Ml 3 Ml Vial SUBCUT 4 unit QIDACHS JENELLE Administration Protocol Levetiracetam 750 mg 04/10/25 15:30 04/11/25 21:08 Levetiracetam 250 Mg Tablet PO 750 mg BID JENELLE Administration Sodium Chloride 3 ml 04/10/25 16:00 04/11/25 21:11 0.9 % Sodium Chloride Flush 3 Ml Syringe IVFLUSH 3 ml QSHIFT JENELLE Administration Discontinued Medications Generic Name Dose Route Start Last Admin Trade Name Freq PRN Reason Stop Dose Admin Sodium Chloride 1,000 mls @ 999 mls/hr 04/10/25 12:45 04/10/25 17:33 Ns IV 04/10/25 13:45 Infused .Q1H1M JENELLE Infusion Insulin Human Regular 10 unit 04/10/25 12:33 04/10/25 13:11 Insulin Regular, Human 100 Unit/Ml 10 Ml Vial IVPUSH 04/10/25 12:34 10 unit ONCE ONE Administration Iohexol 70 ml 04/10/25 12:25 04/10/25 12:25 Iohexol 350 Mg/Ml 100 Ml Infus..Btl IV 04/10/25 12:26 70 ml ONCE ONE Administration Labetalol HCl 10 mg 04/10/25 11:56 04/10/25 12:32 Labetalol Hcl 100 Mg/20 Ml Vial IVPUSH 04/10/25 11:57 10 mg ONCE ONE Administration Medical Decision Making Medical Decision Making [facility] Narrative: 74-year-old male on aspirin with previous? Right retinal artery occlusion or other ocular stroke. Unfortunately patient arrived just outside tPA window. NIH stroke scale 3 including aphasia flattened nasolabial fold and pronator drift right arm. Hemodynamic stable no head trauma. No acute findings on CT/CTA. No LVO. ECG shows sinus tachycardia on arrival rate 120 QTC 455 right bundle branch block no ischemic changes. Lab review reveals hyperglycemia in the mid 400 range. Stable CKD no electrolyte derangements Discussed with the stroke team. Given no LVO, no findings on acute stroke imaging admit for glucose management MRI continued neurologic monitoring Differential Diagnosis Differential Diagnoses: The differential diagnosis associated with the presentation includes TIA/CVA/ICH/brain mass/DKA/HHS/dehydration/electrolyte abnormality Lab Data [facility] Lab Attestation statement: I reviewed the patient's lab results. 04/10/25 12:02 04/11/25 06:35 Labs: Lab Results 04/10/25 04/10/25 04/10/25 Range/Units 11:55 12:02 12:04 WBC 11.4 H (4.8-10.8) X10*3/uL RBC 5.06 (4.60-5.80) X10*6/uL Hgb 16.2 D (14.0-18.0) g/dl Hct 45.5 (42.0-52.0) % MCV 89.9 (80.0-98.0) fL MCH 32.0 (27.0-33.0) pg MCHC 35.6 (31.0-36.0) g/dl RDW 11.9 (11.0-16.0) % Plt Count 196 D (160-400) X10*3/uL MPV 10.2 (9.4-12.4) fL Immature Gran % (Auto) 0.3 (0.0-0.4) % Neut % (Auto) 84.8 H (45-73) % Lymph % (Auto) 8.7 L (20-40) % [place] % (Auto) 5.5 (2-11) % Eos % (Auto) 0.2 (0-4) % Baso % (Auto) 0.5 (0-2) % Lymph # (Auto) 1.0 L (1.2-4.9) X10*3/uL [place] # (Auto) 0.6 (0.1-1.2) X10*3/uL Eos # (Auto) 0.0 (0.0-0.4) X10*3/uL Baso # (Auto) 0.1 (0.0-0.2) X10*3/uL Abs Immat Gran (auto) 0.04 H (0.00-0.03) X10*3/uL Absolute Neuts (auto) 9.7 H (2.0-8.3) x10*3/uL Absolute Nucleated RBC 0.000 (0.0-0.012) X10*3/uL Nucleated RBC % (auto) 0.0 (0.0-0.2) /100WBC PT (Fingerstick) 12.8 (11.1-13.5) sec PT 11.5 (10.9-12.4) SEC INR (Fingerstick) 1.1 (0.9-1.1) INR 1.0 (0.9-1.1) APTT 31.8 (26.0-36.8) SEC Sodium 137 (135-145) mmol/L Potassium 5.0 (3.3-5.1) mmol/L Chloride 106 (96-108) mmol/L Carbon Dioxide 22 (22-29) mmol/L Anion Gap 14 (12-20) BUN 32 H (9-16) mg/dL Creatinine 1.97 H (0.5-1.4) mg/dL Estim Creat Clear Calc 33.4 Estimated GFR 33 POC Glucose 437 H* (60-115) mg/dL Random Glucose 451 H* (60-115) mg/dL Estimat Average Glucose 255 mg/dL Hemoglobin A1c % 10.5 H (<6.0) % Calcium 9.7 D (8.4-10.2) mg/dL Troponin I High Sens 3.4 (<3.5-35.0) ng/L Triglycerides 61 (<150) mg/dL Cholesterol 80 (<200) mg/dL LDL Cholesterol, Calc 36 (<100) mg/dL HDL Cholesterol 32 L (>40) mg/dL Critical Care Time Critical Care Time Critical Care Time: Yes Total Critical Care Time: 30 Attestation: ED Critical Care: Authorized and Performed by: Wil Veloz MD Total critical care time: Approximately 30 Due to a high probability of clinically significant, life threatening deterioration, the patient required my highest level of preparedness to intervene emergently and I personally spent this critical care time directly and personally managing the patient. This critical care time included obtaining a history; examining the patient; pulse oximetry; ordering and review of studies; arranging urgent treatment with development of a management plan; evaluation of patient's response to treatment; frequent reassessment; and, discussions with other providers. This critical care time was performed to assess and manage the high probability of imminent, life-threatening deterioration that could result in multi-organ failure. It was exclusive of separately billable procedures and treating other patients and teaching time. Discharge Plan Discharge Clinical Impression: Word finding difficulty Patient Disposition: Admitted As Inpatient Interventions: Admission Worksheet (ED) Last Done: 04/10/25 14:52 Discharge Date/Time: 04/10/25 15:16
--- NOTE | 2025-04-10 11:54 | ECG_ITS ---
Test Reason : stroke protocol Blood Pressure : */* mmHG Vent. Rate : 120 BPM Atrial Rate : 120 BPM P-R Int : 166 ms QRS Dur : 122 ms QT Int : 322 ms P-R-T Axes : 11 53 4 degrees QTcB Int : 455 ms Sinus tachycardia with frequent Premature ventricular complexes Right bundle branch block Abnormal ECG When compared with ECG of 05-Jul-2022 17:40, Premature ventricular complexes are now Present Referred By: Andrew Potts Electronically Signed By: Ramón Hart
[2025-04-10 11:59] LABS: Glucose, Whole Blood 437 mg/dL (60-115)
--- NOTE | 2025-04-10 12:06 | ED_ITS ---
HPI - Neuro Symptoms/Deficit General Chief Complaint: Stroke Stated Complaint: Difficulty speaking Time Seen by Provider: 04/10/25 11:56 History of Present Illness ED Provider: Wil Veloz MD HPI Narrative: [age] male history of diabetes,? 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 Seizure disorder on Keppra, apparently from 20:00 to 20:15 noticed dysarthric changes that resolved spontaneously last night. They both went to bed he had no issues overnight. He woke at about 06:30 the was up noticed no abnormalities she said Lucas prepare himself for a trip they were taking made himself coffee nothing out of the ordinary. At 07:30 she noticed gibberish nonsensical speech without dysarthria no facial droop or other focal neurologic deficits or symptoms were identified by her. First she went to urgent care where they were then referred here. On arrival the patient has some confusion occasionally inappropriate verbal responses without dysarthria. Question flattened right nasolabial fold, right pronator drift no other deficits. 12:00 Related Data Home Medications ?Medication ?Instructions ?Recorded ?Confirmed rosuvastatin 20 mg tablet 20 mg PO DAILY 04/10/25 Previous Rx's ?Medication ?Instructions ?Recorded amlodipine 10 mg tablet 10 mg PO DAILY #30 tabs 07/05/22 levetiracetam 750 mg tablet 750 mg PO BID #180 tabs 03/06/25 insulin glargine 100 unit/mL (3 20 unit (0.2 mL) subcut DAILY #15 03/16/25 mL) subcutaneous pen (Basaglar mL KwikPen U-100 Insulin) pen needle, diabetic 32 gauge x #100 ea 03/16/25 Allergies Allergy/AdvReac Type Severity Reaction Status Date / Time No Known Allergies Allergy Verified 04/10/25 11:49 [facility] Past Medical History Medical History (Updated 04/10/25 @ 13:47 by Wil Veloz MD) Word finding difficulty Hypertension Social History Social History Patient Tobacco Use Status: Former Tobacco user Advance Directives: Yes Advance Directives Information Provided: Yes Advance Directives on File: No Do you have a plan to hurt others: No Plan Physical Exam 2 Vital Signs: Vital Signs: Last Vital Signs Temp 97.8 F 04/10/25 11:46 Pulse 104 H 04/10/25 13:14 Resp 18 04/10/25 13:14 BP 165/78 H 04/10/25 13:14 Pulse Ox 97 04/10/25 13:14 O2 Del Method Room Air 04/10/25 13:14 BMI result Body Mass Index 26.2 Const: Other: GENERAL: Well appearing. No apparent distress. Alert. HEAD/NECK: Normal to inspection. Neck supple. No cervical lymphadenopathy. EYES: Normal to inspection. Sclera non-icteric. ENMT: External nose normal. RESPIRATORY: Respiratory effort normal. Lungs clear to auscultation bilaterally. CARDIOVASCULAR: Regular rate. Normal rhythm. No murmur. No rubs. GI: Soft, non-tender, non-distended. No rebound or guarding. No masses palpable. No hepatosplenomegaly. SKIN: No jaundice. NEUROLOGICAL: Alert. PSYCHIATRIC: Alert. Appearance appropriate for situation. Attitude cooperative. OTHER: Comprehensive Neuro exam: Subtle possibly right flattened nasal labial fold, tongue midline, strong symmetric eye closure, pupils symmetric and reactive to light, intact sensation to the face throughout, intact strong face deviation and shoulder shrug. Occasional inappropriate verbal responses including when asked to lift his left hand he tells me, ?123 ?. Symmetric tongue protrusion, EOM, positive right pronator drift Sensation intact to light touch throughout * Aside from right arm pronator drift, 5 out of 5 strength in bilateral upper extremities, 5 and 5 strength in lower extremities Medications Administered Generic Name Dose Route Start Last Admin Trade Name Freq PRN Reason Stop Dose Admin Sodium Chloride 1,000 mls @ 999 mls/hr 04/10/25 12:45 04/10/25 13:13 Ns IV 04/10/25 13:45 999 mls/hr .Q1H1M JENELLE Administration Discontinued Medications Generic Name Dose Route Start Last Admin Trade Name Freq PRN Reason Stop Dose Admin Insulin Human Regular 10 unit 04/10/25 12:33 04/10/25 13:11 Insulin Regular, Human 100 Unit/Ml 10 Ml Vial IVPUSH 04/10/25 12:34 10 unit ONCE ONE Administration Iohexol 70 ml 04/10/25 12:25 04/10/25 12:25 Iohexol 350 Mg/Ml 100 Ml Infus..Btl IV 04/10/25 12:26 70 ml ONCE ONE Administration Labetalol HCl 10 mg 04/10/25 11:56 04/10/25 12:32 Labetalol Hcl 100 Mg/20 Ml Vial IVPUSH 04/10/25 11:57 10 mg ONCE ONE Administration Medical Decision Making Medical Decision Making [facility] Narrative: [age] male with stuttering speech symptoms initially dysarthria last night completely resolved, this was likely TIA. Followed by more expressive type aphasia this morning still appears to be present as well as right pronator drift. Patient is on aspirin did not take any medications this morning there was no convulsive activity witnessed by nor does he appear postictal. Blood pressure 190 systolic on arrival we will give labetalol although it is unlike the patient meets criteria for tPA given the last well 07:30 and arrival time 12:00__ CTA and noncontrast CT reported to me as negative except for right ICA stenosis. No acute emergent findings. Patient tachycardic sinus with hyperglycemia. No DKA. Insulin IV fluid initiated. Case discussed via secure text to hospitalist for admission Differential Diagnosis Differential Diagnoses: The differential diagnosis associated with the presentation includes CVA, ischemic versus hemorrhagic, brain mass, encephalopathy Consult Healthcare Provider Management of the patient was discussed with: Hospitalist Lab Data [facility] Lab Attestation statement: I reviewed the patient's lab results. 04/10/25 12:02 04/10/25 12:02 Labs: Lab Results 04/10/25 04/10/25 Range/Units 11:55 12:02 WBC 11.4 H (4.8-10.8) X10*3/uL RBC 5.06 (4.60-5.80) X10*6/uL Hgb 16.2 D (14.0-18.0) g/dl Hct 45.5 (42.0-52.0) % MCV 89.9 (80.0-98.0) fL MCH 32.0 (27.0-33.0) pg MCHC 35.6 (31.0-36.0) g/dl RDW 11.9 (11.0-16.0) % Plt Count 196 D (160-400) X10*3/uL MPV 10.2 (9.4-12.4) fL Immature Gran % (Auto) 0.3 (0.0-0.4) % Neut % (Auto) 84.8 H (45-73) % Lymph % (Auto) 8.7 L (20-40) % Izard % (Auto) 5.5 (2-11) % Eos % (Auto) 0.2 (0-4) % Baso % (Auto) 0.5 (0-2) % Lymph # (Auto) 1.0 L (1.2-4.9) X10*3/uL [place] # (Auto) 0.6 (0.1-1.2) X10*3/uL Eos # (Auto) 0.0 (0.0-0.4) X10*3/uL Baso # (Auto) 0.1 (0.0-0.2) X10*3/uL Abs Immat Gran (auto) 0.04 H (0.00-0.03) X10*3/uL Absolute Neuts (auto) 9.7 H (2.0-8.3) x10*3/uL Absolute Nucleated RBC 0.000 (0.0-0.012) X10*3/uL Nucleated RBC % (auto) 0.0 (0.0-0.2) /100WBC PT 11.5 (10.9-12.4) SEC INR 1.0 (0.9-1.1) APTT 31.8 (26.0-36.8) SEC Sodium 137 (135-145) mmol/L Potassium 5.0 (3.3-5.1) mmol/L Chloride 106 (96-108) mmol/L Carbon Dioxide 22 (22-29) mmol/L Anion Gap 14 (12-20) BUN 32 H (9-16) mg/dL Creatinine 1.97 H (0.5-1.4) mg/dL Estim Creat Clear Calc 33.4 Estimated GFR 33 POC Glucose 437 H* (60-115) mg/dL Random Glucose 451 H* (60-115) mg/dL Calcium 9.7 D (8.4-10.2) mg/dL Troponin I High Sens 3.4 (<3.5-35.0) ng/L Triglycerides 61 (<150) mg/dL Cholesterol 80 (<200) mg/dL LDL Cholesterol, Calc 36 (<100) mg/dL HDL Cholesterol 32 L (>40) mg/dL Independent Interpretation I performed an independent interpretation of an: EKG (Sinus tachycardia no acute ischemic changes) Radiology Impression Discussion of test interpretation with radiology: I discussed test interpretation with the radiologist and I have reviewed the radiologist's reading. Radiologist Impression: Case discussed with the radiologist directly Independent Historian Clinical information obtained from an independent historian. History obtained from or confirmed by: Spouse (Spouse added additional details including the intermittent nature of the symptoms and timing) Critical Care Time Critical Care Time Critical Care Time: Yes Total Critical Care Time: 30 Attestation: ED Critical Care: Authorized and Performed by: Wil Veloz MD Total critical care time: Approximately 30 minutes Due to a high probability of clinically significant, life threatening deterioration, the patient required my highest level of preparedness to intervene emergently and I personally spent this critical care time directly and personally managing the patient. This critical care time included obtaining a history; examining the patient; pulse oximetry; ordering and review of studies; arranging urgent treatment with development of a management plan; evaluation of patient's response to treatment; frequent reassessment; and, discussions with other providers. This critical care time was performed to assess and manage the high probability of imminent, life-threatening deterioration that could result in multi-organ failure. It was exclusive of separately billable procedures and treating other patients and teaching time. Discharge Plan Discharge Clinical Impression: Word finding difficulty Patient Disposition: Admitted As Inpatient
[2025-04-10 12:08] LABS: MANUAL DIFF FLAG NO
[2025-04-10 12:14] LABS: Basophils Absolute Auto 0.1 X10*3/uL (0.0-0.2); Basophils Percent Auto 0.5 % (0-2); Eosinophils Percent Auto 0.2 % (0-4); Hematocrit 45.5 % (42.0-52.0); Hemoglobin 16.2 g/dl (14.0-18.0); Imm Gran Abs Auto 0.04 X10*3/uL (0.00-0.03); Imm Gran Pct Auto 0.3 % (0.0-0.4); Lymphocytes Percent Auto 8.7 % (20-40); Mean Corpuscular HGB Conc 35.6 g/dl (31.0-36.0); Mean Corpuscular Volume 89.9 fL (80.0-98.0); Mean Platelet Volume 10.2 fL (9.4-12.4); Monocytes Absolute Auto 0.6 X10*3/uL (0.1-1.2); Monocytes Percent Auto 5.5 % (2-11); Neutrophils Absolute Auto 9.7 x10*3/uL (2.0-8.3); Neutrophils Percent Auto 84.8 % (45-73); Platelet Count 196 X10*3/uL (160-400); Red Blood Count 5.06 X10*6/uL (4.60-5.80); Red Cell Distribution Width 11.9 % (11.0-16.0); White Blood Count 11.4 X10*3/uL (4.8-10.8)
[2025-04-10 12:22] LABS: Prothrombin Time 11.5 SEC (10.9-12.4)
[2025-04-10 12:25] LABS: Partial Thromboplastin Time 31.8 SEC (26.0-36.8); Stroke Lab Use COMPLETE
[2025-04-10] MEDS: iohexoL 350 MG/ML 100 ML INFUS..BTL 70 ML IV (12:25)
[2025-04-10] MEDS: Labetalol HCL 100 MG/20 ML VIAL 10 MG IVPUSH (12:32)
[2025-04-10 12:33] LABS: Troponin-I High Sensitivity 3.4 ng/L (<3.5-35.0)
[2025-04-10 12:36] LABS: Anion Gap 14 (12-20); Blood Urea Nitrogen 32 mg/dL (9-16); Calcium 9.7 mg/dL (8.4-10.2); Carbon Dioxide 22 mmol/L (22-29); Chloride 106 mmol/L (96-108); Cholesterol 80 mg/dL (<200); Creatinine Clr Calc Pharmacy 33.4; Estimated Glomerular Filt Rate 33; Glucose Random 451 mg/dL (60-115); HDL Cholesterol 32 mg/dL (>40); LDL Cholesterol Calculated 36 mg/dL (<100); Sodium 137 mmol/L (135-145); Triglycerides 61 mg/dL (<150)
--- NOTE | 2025-04-10 12:44 | PM.IMHP ---
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 Pt reports she in her hospital watching TV last night when she noticed he was intermittently saying things that were ?odd? for approximately 15 minutes before resolving. Pt otherwise had no noticeable deficits, including ataxia, hemiparesis, facial droop, difficulty with secretions, or complaining of lightheadedness, dizziness, headache, or acute vision changes. Woke up this morning at 06:30 and reports pt seemed in his normal state of health as he went about his normal morning activities including making coffee. Sometime around 7:30-8:00 pt again had another ?weird? response and difficulty with word finding. Again no other focal deficits noted. Symptoms of aphasia, however did not resolve but persisted and pt initially presented to urgent care where he was noted to be hyperglycemic and was sent to the ED for further evaluation. Pt continues to have significant expressive aphasia, but denies any other acute medical concerns. No SOB or difficulty breathing. Denies chest pain/pressure, palpitations. No nausea, vomiting, abdominal pain. Denies headache or acute vision loss. No lightheadedness or dizziness. Of note, patient's at bedside reports previous stroke in 2018 attributed to uncontrolled diabetes. Pt has been using his insulin regularly at home, but not checking his sugars regularly. Pt's attempted to check his POC this morning after he became symptomatic but found the glucometer broken and likely not used in many weeks to months. In the ED pt was tachycardic up to 132 and hypertensive up to 202/96. Labs were significant for leukocytosis of 11.4, creatinine mildly elevated at 1.97 (previous 1.80 on 07/05/2022), and hyperglycemic at 451. Stable H&H. No significant electrolyte abnormalities. CT\of head showed no acute intracranial abnormality. CTA of head/neck limited by motion artifact but showing likely 70-80% stenosis of proximal right and left ICA. EKG demonstrated sinus tachycardia of 120 without evidence of significant ST elevations or depressions. Pt was treated in the ED with labetalol 10 mg IV, IVF, and insulin 10 units IV. Pt initially presented to the ED around 12:00, but given last known well time prior to symptom onset last night, pt was outside of tNK therapeutic window. Was seen by this provider between 13:00-13:30. Pt is admitted to the hospital for treatment and further evaluation of expressive aphasia concerning for acute CVA. Review of Systems Review of Systems: Negative except for that which is stated in the HPI. [facility] Medical History (Updated 04/10/25 @ 18:58 by WILLA Ramirez) CVA (cerebral vascular accident) Uncontrolled diabetes mellitus with hyperglycemia Insulin dependent type 2 diabetes mellitus HLD (hyperlipidemia) Word finding difficulty Hypertension Social History Housing: House Alcohol intake: never Patient Tobacco Use Status: Former Tobacco user Smoked in Last 30 Days: No Patient Interested in Nicotine Replacement: No Patient Given Instructions on How to Stop Smoking: No Second Hand Smoke Exposure: No Use of substances other than those prescribed or required for medical reasons: No Have you been hit, kicked, punched, or otherwise hurt by someone within the past year? If so, by whom?: No Do you feel safe in your current relationship?: Yes Is there a partner from a previous relationship who is making you feel unsafe now?: No Are you made to feel afraid or neglected: No Adventism Healthcare Practices: na Advance Directives: No Advance Directives Information Provided: No Advance Directives on File: No Do you have a plan to hurt others: No Plan Recently lost weight without trying: No Eating poorly because of decreased appetite: No Nutrition Risks: No Nutritional Risk Meds Allergies Allergy/AdvReac Type Severity Reaction Status Date / Time No Known Allergies Allergy Verified 04/10/25 11:49 Active Medications: Current Medications Sodium Chloride (Ns) 1,000 mls @ 999 mls/hr IV .Q1H1M JENELLE Stop: 04/10/25 13:45 Home Medications ?Medication ?Instructions ?Recorded ?Confirmed ?Last Taken ?Type aspirin 81 mg tablet,delayed 81 mg PO DAILY 04/10/25 04/10/25 04/09/25 History release insulin glargine 100 unit/mL (3 16 unit subcut DAILY 04/10/25 04/10/25 04/09/25 History mL) subcutaneous pen (Basaglar KwikPen U-100 Insulin) rosuvastatin 20 mg tablet 20 mg PO BEDTIME 04/10/25 04/10/25 04/09/25 History Physical Exam Vital Signs and Narrative: Vital Signs: Last Vital Signs Temp 97.8 F 04/10/25 11:46 Pulse 108 H 04/10/25 12:35 Resp 18 04/10/25 12:35 BP 164/87 H 04/10/25 12:35 Pulse Ox 94 04/10/25 12:35 O2 Del Method Room Air 04/10/25 12:35 BMI result Body Mass Index 26.2 General: Alert and oriented, no acute distress Resp: CTA bilaterally CVS: S1, S2, RRR GI: +BS, NT, no distention Skin: Warm, dry Neuro: Significant expressive aphasia, otherwise no other noted focal deficits. Able to follow commands. Pronator drift not clearly positive. Sensation to light touch intact of face, upper, and lower extremities. Strength preserved and symmetric of upper and lower extremities bilaterally. No facial droop. Tongue midline. EOM intact. Extremities: No edema Psych: Appropriate affect Results Labs 04/10/25 12:02 04/10/25 12:02 Labs: Laboratory Results - last 24 hr 04/10/25 04/10/25 11:55 12:02 MCV 89.9 MCH 32.0 MCHC 35.6 RDW 11.9 Plt Count 196 D MPV 10.2 Immature Gran % (Auto) 0.3 Neut % (Auto) 84.8 H Lymph % (Auto) 8.7 L [place] % (Auto) 5.5 Eos % (Auto) 0.2 Baso % (Auto) 0.5 Lymph # (Auto) 1.0 L [place] # (Auto) 0.6 Eos # (Auto) 0.0 Baso # (Auto) 0.1 Abs Immat Gran (auto) 0.04 H Absolute Neuts (auto) 9.7 H Absolute Nucleated RBC 0.000 Nucleated RBC % (auto) 0.0 PT 11.5 INR 1.0 APTT 31.8 Anion Gap 14 Estim Creat Clear Calc 33.4 Estimated GFR 33 POC Glucose 437 H* Random Glucose 451 H* Calcium 9.7 D Triglycerides 61 Cholesterol 80 LDL Cholesterol, Calc 36 HDL Cholesterol 32 L Imaging Radiologist's Impressions: Impressions Head CT 04/10/25 12:06 IMPRESSION: No acute intracranial abnormality. These findings were discussed with WILLA Lobo in the emergency room on 04/10/2025 at 12:30 PM. Electronically signed by: Arben Villarreal MD 04/10/2025 12:31 PM EDT RP Head/Neck CTA 04/10/25 12:10 IMPRESSION: Limited by patient's motion artifact. Irregular calcified plaques, proximal right ICA likely representing 70-80% stenosis. Mixed plaques, proximal left ICA likely representing 70-80% stenosis. No dissection. Codominant vertebral arteries. No main cerebral artery occlusion or embolus. This critical test result is communicated to: Emergency physician Dr. 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 Pt is admitted to the hospital for treatment and further evaluation of expressive aphasia concerning for acute CVA. Concern for acute CVA Pt with 15 minute episode of expressive aphasia last night which resolved, symptoms began again around 7:00-8:00 this morning and persisted No other focal deficits noted CT of head negative, CTA of head/neck limited due to motion artifact but showed bilateral ICA stenosis of 70-80% Will get MRI of head/brain Neurology consult Vascular surgery consult for carotid stenosis Lipid panel WNL except for HDL of 32 Continue home aspirin, statin Speech, PT, and OT evaluation Monitor on telemetry Insulin-dependent type 2 diabetes, poorly controlled Pt hyperglycemic at 437 at time of presentation Pt does not regularly check POC at home but blindly doses with insulin Check A1c Place on sliding scale insulin, Lantus Diabetic diet Seizure disorder Secondary to previous CVA in 2018 Continue levetiracetam HTN Pt hypertensive up to 202/ Given labetalol 10 mg IV in the ED Hold amlodipine to allow for permissive hypertension Labetalol 5 mg IV p.r.n. for SBP>175 Full Code Attending:? DVT Prophylaxis: Lovenox Pt will require a hospitalization of at least two nights for treatment of persistent?expressive aphasia concerning for acute CVA. Pt will require hospital level care for continued monitoring of cardiac function, additional imaging with MRI, and specialist consultation with Neurology, speech, and PT/OT. Quality Stroke Does the patient have a stroke diagnosis?: Yes Reason for No Anti-thrombotic by Day Two: N/A - Med Ordered (Pt is taking a daily aspirin; outside tNK therapeutic window) VTE Prior VTE?: No VTE Risk Level:: Medical - moderate - high VTE Device Contraindication: Treatment Not Indicated VTE Drug Contraindication: N/A - Med Ordered
[2025-04-10] MEDS: Insulin Regular, Human 100 UNIT/ML 10 ML VIAL 10 UNIT IVPUSH (13:11)
[2025-04-10] MEDS: 0.9 % Sodium Chloride 1,000 ML 999 ML IV (13:13)
--- NOTE | 2025-04-10 13:32 | MHC.STROKE ---
Called to ED for stroke alert. Upon arrival to ED, pt was in CT scan. Spoke with Maru. Maru reports last night she noticed the patient had some difficulty speaking between [id number]. She reports that symptoms lasted a short time and then resolved. She states that they went to bed around 2200 and patient was well. This am, pt woke at 0630 and had no symptoms. Timeline then becomes slightly fuzzy. According to Maru around 0730 pt again began to speak funny . She reports his speech sounded garbled. Initially they did not call PCP, around 10am they notified their provider. In ED, patient made stroke alert from triage. CTH and CTA completed. During assessment, patient with mild right pronator drift noted, equal/bilateral leg strength, tongue midline. Pt having difficulty answering some questions. He responds 123 . Unable to repeat [place], [place] . Pt becoming frustrated with himself knowing that he cannot repeat certain phrases. Stroke Education reviewed. Pamphlet provided. Risk factors discussed including medical history, medications, diet, activity, social hx. Plan is for admission to the hospital. Pt/family aware of plan. Will continue to assist as needed.
--- NOTE | 2025-04-10 14:27 | PHA.MEDREC ---
Addendum entered by Kemar Casarez RPh 04/10/25 14:33: Med rec was reviewed by [facility]. Original Note: Pharmacy Consult ? Medication Reconciliation Pharmacy has completed the medication reconciliation. Spoke with patient (who was confused at base line) and patients spouse at bedside who were able to confirm the patient medications. Patient and confirmed the patient takes Insulin Glargine daily and at first couldn't remember how many units the patient injected daily but then the patients has once of the pens on hand and the patient took it and turned the dial to 16 units and stated that was how much he does daily now.
[2025-04-10 14:41] LABS: Glucose, Whole Blood 199 mg/dL (60-115)
[2025-04-10 14:43] LABS: Appearance Urine Clear; Color Urine Yellow; Glucose Urine UA >=1000 mg/dL (Negative); Leukocyte Esterase Urine Negative (Negative); Nitrite Urine Negative (Negative); PH 6.5 (5.0-9.0); Specific Gravity - Urine 1.025 (1.005-1.025); UMIC TRIGGER UACC YES; Urine Blood Negative (Negative); Urine Ketones Negative (Negative); Urine Protein 30 (1+) mg/dL (Neg-Trace)
[2025-04-10 14:46] LABS: Bacteria Urine None Seen (None Seen); Hyaline Casts Urine 0-2 /LPF (0-2); RBC Urine 0-2 /HPF (0-2); Squamous Epithelial Cell Urine 0-2 /HPF (0-2); WBC Urine 0-5 /HPF (0-5)
[2025-04-10 15:33] LABS: Estimated Average Glucose 255 mg/dL; Hemoglobin A1c % 10.5 % (<6.0); Total Hemoglobin (HGBA1C) 4071.8386 umol/L
[2025-04-10 17:01] LABS: INR Whole Blood 1.1 (0.9-1.1); Prothrombin Time Whole Blood 12.8 sec (11.1-13.5)
[2025-04-10] MEDS: Insulin Lispro 100 UNIT/ML 3 ML VIAL SUBCUT ×2 (17:02→20:47)
[2025-04-10] MEDS: levETIRAcetam 250 MG TABLET 750 MG PO (17:03)
[2025-04-10] MEDS: Aspirin Enteric Coated 81 MG TABLET.DR PO (17:03)
[2025-04-10] MEDS: Enoxaparin Sodium 40 MG/0.4 ML SYRINGE SUBCUT (17:03)
[2025-04-10] MEDS: 0.9 % Sodium Chloride Flush 3 ML SYRINGE IVFLUSH ×2 (17:04→20:48)
[2025-04-10 17:29] LABS: Glucose, Whole Blood 277 mg/dL (60-115)
--- NOTE | 2025-04-10 18:02 | MHC.SP.ADU ---
Referring provider: Peyton Martin MD Reason for Referral: Pt with expressive aphasia, likely acute CVA Type of Treatment: 29833 Clinical Swallowing Evaluation Date of Plan of Treatment: 04/10/25 Onset of Symptoms/Illness: 04/10/25 Date Treatment Started: 04/10/25 Medical Diagnosis: Word finding difficulty Primary Speech Language Diagnosis: R47.01 Aphasia Secondary Speech Language Diagnosis: History Patient is a 74 year old male brought to the ED after having new onset word finding difficulty and garbled speech. While in the ED, patient had difficulty answering certain questions and became frustrated when unable to repeat back certain words or phrases. Patient is now in a room in [facility] [place] [facility] and being worked up for stroke. Medical History: Other: HTN, HLD, insulin dependent type 2 diabetes, hx R-optic nerve CVA w/ residual vision deficits and subsequent seizure d/o Swallowing History: Dysphagia Specific: Within Functional Limits Comments: Patient has limited dentition, few sparse teeth on top and bottom jaw. Patient and his partner report patient is able to eat harder solids and is not restricted by his poor dentition. [facility] otherwise [facility]. Patient was started on a regular texture diet after passing his RN swallow screen. RN reports patient ate pork chops and veggies without any difficulty. NEWS SPECIALIST observed patient eating saltine crackers and drinking water. Oral and pharyngeal phase deemed WFL. Pre-eval Risk for Aspiration: Pre-evaluation Dietary Consistencies: Regular Pre-eval Liquid Intake: Thin Pre-eval Medication Intake: Whole with Liquid Assessment Speech Production: Aphasic: Nonfluent Tests of Speech & Lang Adults: BNT Clinical Impression: Impaired Observations: Patient was administered the Mona Naming Test Standard Form and correctly named 8 out of 60 line images. Patient often mislabeled items with words that were phonemically similar and other times with pseudowords. For example, he named ice as hike and seahorse as peachhorse. Patient was aware of these errors and this was a great source of his frustration. Patient often described words with short phrases (i.e. I know what that is....It's big and in [place] for sphinx and pyramid ) or gestured to indicate he was familiar with the item (i.e. gestured throwing a dart). Patient did not respond to phonemic cues, but did recall words to complete sentence prompts (i.e. You hit a tennis ball with a... Racquet You brush your teeth with a... Toothbrush ). Patient identified the correct label from a choice of 4 written words by pointing in 49 out of 52 trials. Patient did not identify the remaining 3 words because he was not familiar with the item pictured (i.e. not familiar with gardening terms such as trellis ). Comment: Patient presents with severe expressive aphasia, characterized mainly by anomia and difficulty repeating back words and phrases. He is recommended continued speech therapy during his inpatient stay and at the next level of care. Recommendation for Speech Therapy: Inpatient Speech Therapy Speech Therapy through A Speech Therapy through Rehab Facility Recommended Referrals to be Discussed with Primary Care Provider: Neurology Patient Education: Completed: Yes Patient/Caregiver Education: Described Results of Evaluation Patient expressed understanding of evaluation Comments/Barriers to Learning: Electric Motor Repairer Clinican/Clinical Fellow: No Supervisory Statement: N/A Speech Language Pathologist: Yeimi Morales M.A., CCC-NEWS SPECIALIST
[2025-04-10 20:16] LABS: Glucose, Whole Blood 257 mg/dL (60-115)
[2025-04-10] MEDS: Atorvastatin Calcium 80 MG TABLET PO (20:47)
[2025-04-11] VITALS (7 sets, daily range): BP systolic 136–178; BP diastolic 78–84; PULSE 74–119; RESP 16–20; TEMP 36.1–37.2; O2SAT 94–98
[2025-04-11 07:33] LABS: Glucose, Whole Blood 255 mg/dL (60-115)
[2025-04-11 07:39] LABS: Anion Gap 16 (12-20); Blood Urea Nitrogen 24 mg/dL (9-16); Calcium 9.3 mg/dL (8.4-10.2); Carbon Dioxide 21 mmol/L (22-29); Chloride 108 mmol/L (96-108); Creatinine Clr Calc Pharmacy 38.3; Estimated Glomerular Filt Rate 39; Glucose Random 215 mg/dL (60-115); Magnesium 1.9 mg/dL (1.6-2.6); Potassium 4.8 mmol/L (3.3-5.1); Sodium 140 mmol/L (135-145)
[2025-04-11] MEDS: Aspirin Enteric Coated 81 MG TABLET.DR PO (09:02)
[2025-04-11] MEDS: levETIRAcetam 250 MG TABLET 750 MG PO ×2 (09:02→21:08)
[2025-04-11] MEDS: Insulin Glargine,Hum.rec.anlog 100 UNIT/ML 10 ML VIAL 15 UNIT SUBCUT (09:02)
[2025-04-11] MEDS: Insulin Lispro 100 UNIT/ML 3 ML VIAL SUBCUT ×4 (09:04→21:07)
[2025-04-11] MEDS: 0.9 % Sodium Chloride Flush 3 ML SYRINGE IVFLUSH ×3 (09:13→21:11)
--- NOTE | 2025-04-11 09:48 | HO.PM.IMPN ---
Subjective Subjective Date of Service: 04/11/25 Interval History: improving speech Physical Exam Vital Signs: Vital Signs: Last Vital Signs Temp 97.0 F 04/11/25 07:20 Pulse 119 H 04/11/25 07:27 Resp 16 04/11/25 07:20 BP 165/80 H 04/11/25 07:27 Pulse Ox 94 04/11/25 07:27 O2 Del Method Room Air 04/11/25 02:57 BMI result Body Mass Index 26.2 General: AO X 3, no acute distress Resp: CTA bilateral, no accessory muscles used CVS: S1,S2,RRR GI: soft, non tender, non distended Neuro: motor grossly intact, alert, brocas aphasia Psych: appropriate affect, appropriate insight Objective Data Active Medications Acetaminophen (Acetaminophen 325 Mg Tablet) 650 mg PO Q6H PRN PRN Reason: Pain, Mild 1-3,fever,headache Aspirin (Aspirin Enteric Coated 81 Mg Tablet.) 81 mg PO DAILY [facility] Last Admin: 04/11/25 09:04 Dose: 81 mg Documented By: STANLEY Atorvastatin Calcium (Atorvastatin Calcium 80 Mg Tablet) 80 mg PO BEDTIME [facility] Last Admin: 04/10/25 20:47 Dose: 80 mg Documented By: MEHNAZ Calcium Carbonate (Calcium Carbonate 750 Mg Tab.Chew) 750 mg PO Q4H PRN PRN Reason: Heartburn Dextrose (Dextrose 50 % 25 Gm/50 Ml Syringe) 25 gm IVPUSH Q15M PRN; Protocol PRN Reason: per Hypoglycemia Standing Ord. Enoxaparin Sodium (Enoxaparin Sodium 40 Mg/0.4 Ml Syringe) 40 mg SUBCUT Q24H [facility] Last Admin: 04/10/25 17:03 Dose: 40 mg Documented By: CARSON Glucose (Glucose Gel 15 Gm Gel..Gram.) 15 gm PO Q15M PRN; Protocol PRN Reason: per Hypoglycemia Standing Ord. Insulin Glargine (Insulin Glargine,Hum.Rec.Anlog 100 Unit/Ml 10 Ml Vial) 15 unit SUBCUT DAILY [facility] Last Admin: 04/11/25 09:02 Dose: 15 unit Documented By: STANLEY Insulin Human Lispro (Insulin Lispro 100 Unit/Ml 3 Ml Vial) 0 unit SUBCUT QIDACHS [facility]; Protocol Last Admin: 04/11/25 09:04 Dose: 6 unit Documented By: STANLEY Labetalol HCl (Labetalol Hcl 100 Mg/20 Ml Vial) 5 mg IVPUSH Q6H PRN PRN Reason: SBP >175 Levetiracetam (Levetiracetam 250 Mg Tablet) 750 mg PO BID [facility] Last Admin: 04/11/25 09:02 Dose: 750 mg Documented By: STANLEY Magnesium Hydroxide (Milk Of Magnesia 30 Ml Oral.Susp) 30 ml PO DAILY PRN PRN Reason: Constipation Melatonin (Melatonin 3 Mg Tablet) 6 mg PO BEDTIME PRN PRN Reason: Insomnia Sodium Chloride (0.9 % Sodium Chloride Flush 3 Ml Syringe) 3 ml IVFLUSH QSHIFT [facility] Last Admin: 04/11/25 09:13 Dose: 3 ml Documented By: STANLEY Labs 04/10/25 12:02 04/11/25 06:35 Labs: Laboratory Results - last 24 hr 04/10/25 04/10/25 04/10/25 11:55 12:02 12:04 MCV 89.9 MCH 32.0 MCHC 35.6 RDW 11.9 Plt Count 196 D MPV 10.2 Immature Gran % (Auto) 0.3 Neut % (Auto) 84.8 H Lymph % (Auto) 8.7 L [place] % (Auto) 5.5 Eos % (Auto) 0.2 Baso % (Auto) 0.5 Lymph # (Auto) 1.0 L [place] # (Auto) 0.6 Eos # (Auto) 0.0 Baso # (Auto) 0.1 Abs Immat Gran (auto) 0.04 H Absolute Neuts (auto) 9.7 H Absolute Nucleated RBC 0.000 Nucleated RBC % (auto) 0.0 PT (Fingerstick) 12.8 PT 11.5 INR (Fingerstick) 1.1 INR 1.0 APTT 31.8 Anion Gap 14 Estim Creat Clear Calc 33.4 Estimated GFR 33 POC Glucose 437 H* Random Glucose 451 H* Estimat Average Glucose 255 Hemoglobin A1c % 10.5 H Calcium 9.7 D Magnesium Triglycerides 61 Cholesterol 80 LDL Cholesterol, Calc 36 HDL Cholesterol 32 L Urine Color Urine Appearance Urine pH Ur Specific [place] Urine Protein Urine Glucose (UA) Urine Ketones Urine Blood Urine Nitrite Ur Leukocyte Esterase Urine RBC Urine WBC Ur Squamous Epith Cells Urine Bacteria Hyaline Casts 04/10/25 04/10/25 04/10/25 14:30 14:36 17:20 MCV MCH MCHC RDW Plt Count MPV Immature Gran % (Auto) Neut % (Auto) Lymph % (Auto) [place] % (Auto) Eos % (Auto) Baso % (Auto) Lymph # (Auto) [place] # (Auto) Eos # (Auto) Baso # (Auto) Abs Immat Gran (auto) Absolute Neuts (auto) Absolute Nucleated RBC Nucleated RBC % (auto) PT (Fingerstick) PT INR (Fingerstick) INR APTT Anion Gap Estim Creat Clear Calc Estimated GFR POC Glucose 199 H 277 H Random Glucose Estimat Average Glucose Hemoglobin A1c % Calcium Magnesium Triglycerides Cholesterol LDL Cholesterol, Calc HDL Cholesterol Urine Color Yellow Urine Appearance Clear Urine pH 6.5 Ur Specific [place] 1.025 Urine Protein 30 (1+) H Urine Glucose (UA) >=1000 H Urine Ketones Negative Urine Blood Negative Urine Nitrite Negative Ur Leukocyte Esterase Negative Urine RBC 0-2 Urine WBC 0-5 Ur Squamous Epith Cells 0-2 Urine Bacteria None Seen Hyaline Casts 0-2 04/10/25 04/11/25 04/11/25 20:12 06:35 07:28 MCV MCH MCHC RDW Plt Count MPV Immature Gran % (Auto) Neut % (Auto) Lymph % (Auto) [place] % (Auto) Eos % (Auto) Baso % (Auto) Lymph # (Auto) [place] # (Auto) Eos # (Auto) Baso # (Auto) Abs Immat Gran (auto) Absolute Neuts (auto) Absolute Nucleated RBC Nucleated RBC % (auto) PT (Fingerstick) PT INR (Fingerstick) INR APTT Anion Gap 16 Estim Creat Clear Calc 38.3 Estimated GFR 39 POC Glucose 257 H 255 H Random Glucose 215 H Estimat Average Glucose Hemoglobin A1c % Calcium 9.3 Magnesium 1.9 Triglycerides Cholesterol LDL Cholesterol, Calc HDL Cholesterol Urine Color Urine Appearance Urine pH Ur Specific [place] Urine Protein Urine Glucose (UA) Urine Ketones Urine Blood Urine Nitrite Ur Leukocyte Esterase Urine RBC Urine WBC Ur Squamous Epith Cells Urine Bacteria Hyaline Casts Assessment and Plan (1) Word finding difficulty: Status: Acute Plan 74M PMH htn, hld, dm, cva, seizure, presented with word finding difficulty found to have acute cva Acute CVA Due to left ICA stenosis Neuro and vascular eval Continue aspirin statin Speech PT recommending home with services Diabetes with hyperglycemia Basal bolus insulin Seizure disorder Continue Keppra Hypertension Permissive hypertension for now DVT prophylaxis Lovenox Full Code reason for continued hospitalization: Stroke workup ongoing Quality Stroke Does the patient have a stroke diagnosis?: Yes Reason for No Anti-thrombotic by Day Two: N/A - Med Ordered (Pt is taking a daily aspirin; outside tNK therapeutic window) VTE Prior VTE?: No VTE Risk Level:: Medical - moderate - high VTE Device Contraindication: Treatment Not Indicated VTE Drug Contraindication: N/A - Med Ordered
[2025-04-11 11:27] LABS: Glucose, Whole Blood 260 mg/dL (60-115)
--- NOTE | 2025-04-11 12:06 | MHC.CM.PN ---
IMM DELIVERED. CM ASSESSMENT COMPLETED W/ PATIENT AND S.O. MJ AT BEDSIDE. PATIENT LIVES IN A HOME W/ S.O. FUNCTIONALLY INDEPENDENT. DENIES USE OF DME OR SERVICES. PCP LIANE BENNETT MD REPORTS HE HAS AN HCP NAMING HIS SON, NICHOLE, HCA. COPY REQUESTED. NICHOLE [phone] DP: PT REC HOME W/ SERVICES. PATIENT & S.O. AGREE AND FEEL COMFORTABLE W/ PLAN. PREFER [facility]. REFERRAL SENT VIA [facility]. S[facility] WILL TRANSPORT. CM WILL CONTINUE TO FOLLOW.
[2025-04-11 16:51] LABS: Glucose, Whole Blood 153 mg/dL (60-115)
[2025-04-11] MEDS: Enoxaparin Sodium 40 MG/0.4 ML SYRINGE SUBCUT (16:55)
[2025-04-11 20:21] LABS: Glucose, Whole Blood 231 mg/dL (60-115)
[2025-04-11] MEDS: Atorvastatin Calcium 80 MG TABLET PO (21:06)
[2025-04-12 03:27] VITALS: BP 144/78; PULSE 83; RESP 18; TEMP 37; O2SAT 94
[2025-04-12 07:09] VITALS: BP 162/84; PULSE 88; RESP 14; TEMP 36.9; O2SAT 94
[2025-04-12 07:19] LABS: Glucose, Whole Blood 176 mg/dL (60-115)
[2025-04-12 07:37] LABS: Hematocrit 43.3 % (42.0-52.0); Hemoglobin 15.3 g/dl (14.0-18.0); Mean Corpuscular HGB Conc 35.3 g/dl (31.0-36.0); Mean Corpuscular Volume 90.6 fL (80.0-98.0); Mean Platelet Volume 9.9 fL (9.4-12.4); Platelet Count 184 X10*3/uL (160-400); Red Blood Count 4.78 X10*6/uL (4.60-5.80); Red Cell Distribution Width 12.1 % (11.0-16.0); White Blood Count 9.1 X10*3/uL (4.8-10.8)
[2025-04-12 07:49] LABS: Anion Gap 15 (12-20); Blood Urea Nitrogen 30 mg/dL (9-16); Calcium 9.1 mg/dL (8.4-10.2); Carbon Dioxide 20 mmol/L (22-29); Chloride 108 mmol/L (96-108); Creatinine Clr Calc Pharmacy 34.3; Estimated Glomerular Filt Rate 34; Glucose Random 177 mg/dL (60-115); Potassium 4.6 mmol/L (3.3-5.1); Sodium 138 mmol/L (135-145)
[2025-04-12] MEDS: Insulin Lispro 100 UNIT/ML 3 ML VIAL SUBCUT (07:57)
[2025-04-12] MEDS: levETIRAcetam 250 MG TABLET 750 MG PO (07:57)
[2025-04-12] MEDS: Aspirin Enteric Coated 81 MG TABLET.DR PO (07:57)
[2025-04-12] MEDS: Insulin Glargine,Hum.rec.anlog 100 UNIT/ML 10 ML VIAL 15 UNIT SUBCUT (07:58)
[2025-04-12] MEDS: 0.9 % Sodium Chloride Flush 3 ML SYRINGE IVFLUSH (08:01)
--- NOTE | 2025-04-12 08:57 | P.DS_ITS ---
DS: Providers Provider Date of Service: 04/12/25 Date of admission: 04/10/25 12:59 Date of discharge: 04/12/25 Primary care physician: Rony Messer MD Consults: 04/10/25 15:02 Consult to Neurology Routine Consulting Provider: 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 Pt reports she in her hospital watching TV last night when she noticed he was intermittently saying things that were ?odd? for approximately 15 minutes before resolving. Pt otherwise had no noticeable deficits, including ataxia, hemiparesis, facial droop, difficulty with secretions, or complaining of lightheadedness, dizziness, headache, or acute vision changes. Woke up this morning at 06:30 and reports pt seemed in his normal state of health as he went about his normal morning activities including making coffee. Sometime around 7:30-8:00 pt again had another ?weird? response and difficulty with word finding. Again no other focal deficits noted. Symptoms of aphasia, however did not resolve but persisted and pt initially presented to urgent care where he was noted to be hyperglycemic and was sent to the ED for further evaluation. Pt continues to have significant expressive aphasia, but denies any other acute medical concerns. No SOB or difficulty breathing. Denies chest pain/pressure, palpitations. No nausea, vomiting, abdominal pain. Denies headache or acute vision loss. No lightheadedness or dizziness. Of note, patient's at bedside reports previous stroke in 2018 attributed to uncontrolled diabetes. Pt has been using his insulin regularly at home, but not checking his sugars regularly. Pt's attempted to check his POC this morning after he became symptomatic but found the glucometer broken and likely not used in many weeks to months. In the ED pt was tachycardic up to 132 and hypertensive up to 202/96. Labs were significant for leukocytosis of 11.4, creatinine mildly elevated at 1.97 (previous 1.80 on 07/05/2022), and hyperglycemic at 451. Stable H&H. No significant electrolyte abnormalities. CT\of head showed no acute intracranial abnormality. CTA of head/neck limited by motion artifact but showing likely 70- 80% stenosis of proximal right and left ICA. EKG demonstrated sinus tachycardia of 120 without evidence of significant ST elevations or depressions. Pt was treated in the ED with labetalol 10 mg IV, IVF, and insulin 10 units IV. Pt initially presented to the ED around 12:00, but given last known well time prior to symptom onset last night, pt was outside of tNK therapeutic window. Was seen by this provider between 13:00-13:30. Pt is admitted to the hospital for treatment and further evaluation of expressive aphasia concerning for acute CVA. hospital course: Patient was admitted for acute CVA due to left ICA stenosis. Had no events on telemetry. Was seen by neurology recommended continuing aspirin, increasing statin to high intensity and adding Plavix, decreasing amlodipine to 5 mg daily and following up with vascular for possible endarterectomy. Was seen by speech who recommended continuing speech therapy. Seen by physical therapy who recommended home with services. Speech did have some improvements but still has significant expressive aphasia. For diabetes with hyperglycemia can continued on basal bolus insulin. For seizure continued on Keppra. Time Attestation Discharge Coordination Time (in mins): 35 Quality: Safe Use of Opioids Does Pt have an Active Cancer Diagnosis on the Problem List?: No Quality: Stroke Does the patient have a stroke diagnosis?: Yes Reason for No Anti-thrombotic at DC: N/A - Med Ordered Reason for No Anticoagulant at DC: Drug treatment not indicated Reason Not Initiating IV-Tpa: Drug treatment not indicated Reason for No Anti-thrombotic by Day Two: N/A - Med Ordered Reason for No Statin at DC: N/A - Med Ordered Physical Exam Vital Signs: Vital Signs: Last Vital Signs Temp 98.4 F 04/12/25 07:09 Pulse 88 04/12/25 07:09 Resp 14 04/12/25 07:09 BP 162/84 H 04/12/25 07:09 Pulse Ox 94 04/12/25 07:09 O2 Del Method Room Air 04/12/25 07:09 BMI result Body Mass Index 26.2 General: AO X 3, no acute distress Resp: CTA bilateral, no accessory muscles used CVS: S1,S2,RRR GI: soft, non tender, non distended Neuro: motor grossly intact, alert, brocas aphasia Psych: appropriate affect, appropriate insight DS: Data Data Completed and Pending Labs on day of discharge: Laboratory Results - last 24 hr 04/11/25 04/11/25 04/11/25 11:14 16:47 19:58 WBC RBC Hgb Hct MCV MCH MCHC RDW Plt Count MPV Absolute Nucleated RBC Nucleated RBC % (auto) Sodium Potassium Chloride Carbon Dioxide Anion Gap BUN Creatinine Estim Creat Clear Calc Estimated GFR POC Glucose 260 H 153 H 231 H Random Glucose Calcium 04/12/25 04/12/25 07:09 07:21 WBC 9.1 RBC 4.78 Hgb 15.3 Hct 43.3 MCV 90.6 MCH 32.0 MCHC 35.3 RDW 12.1 Plt Count 184 MPV 9.9 Absolute Nucleated RBC 0.000 Nucleated RBC % (auto) 0.0 Sodium 138 Potassium 4.6 Chloride 108 Carbon Dioxide 20 L Anion Gap 15 BUN 30 H Creatinine 1.92 H Estim Creat Clear Calc 34.3 Estimated GFR 34 POC Glucose 176 H Random Glucose 177 H Calcium 9.1 Discharge Plan Discharge Anticipated Discharge Date/Time: 04/12/25 08:48 Patient Disposition: Home Health Service Discharge Diagnosis: cva Referrals: Alfonzo Bowman MD [Physician] - 1 Week (LICA stenosis, left cva) Rony Messer MD [Primary Care Provider] - 1 Week Discharge Medications: New rosuvastatin [Crestor] 40 mg tablet 40 mg PO DAILY Qty: 90 0RF amlodipine 5 mg tablet 5 mg PO DAILY Qty: 90 0RF clopidogrel [Plavix] 75 mg tablet 75 mg PO DAILY Qty: 90 0RF Continued levetiracetam 750 mg tablet 750 mg PO BID Qty: 180 1RF (DME) pen needle, diabetic 32 gauge x 5/32 needle See Rx Instructions .Route Qty: 100 0RF Rx Instructions: As directed aspirin 81 mg Tablet,Delayed Release (Dr/Ec) 81 mg PO DAILY insulin glargine [Basaglar KwikPen U-100 Insulin] 100 unit/mL (3 mL) insulin pen 16 unit subcut DAILY Discontinued amlodipine 10 mg tablet 10 mg PO DAILY Qty: 30 1RF rosuvastatin 20 mg tablet 20 mg PO BEDTIME Discharge Orders: Discharge Order (Routine); Ordered 04/12/25 Ordered By: Vaughn Ellington Diet: Advance to usual diet Activity on Discharge: As tolerated Stand Alone Forms: Patient Portal Discharge page Print Language: Green[place]ic Care Plan Goals: prevent strokes Health Concerns: cva Plan of Treatment: decrease amlodipine to 5mg daily, start plavix, increase crestor to 40mg daily follow up with vascular surgery Assessment: see above
--- NOTE | 2025-04-12 09:01 | P.F2F_ITS ---
Service Date Service Date: 04/12/25 Encounter Date of encounter: 04/12/25 Reasons for Services Signs and symptoms assessed: aphasia Reason for physical therapy: home safety and mobility and therapeutic exercises Reason for speech therapy: speech impairment Homebound: Leaving the home is medically contraindicated at this time without the asist of a device and/or another person due th the listed conditions above and below. Reason homebound: unsteady gait / fall risk Certification: Based on the above findings, I certify that this patient is confined to the home and needs intermittent senior care care, physical therapy and/or speech th erapy, or continues to need occupational therapy. The patient is under my care, and I have initiated the establishment of the plan of care. The patient will be followed by a physician who will periodically review the plan of care. Time Spent With Patient Time: Total time managing care of this patient today ____ minutes.
--- NOTE | 2025-04-12 09:47 | MHC.CM.PN ---
Addendum entered by Valentine Barry RN 04/12/25 10:07: [facility] PT unable to see patient until 04/16, and reports speech will have up to 5 days after SOC to see patient. [facility] able to see patient for PT on 04/14 and speech 04/15. Patient prefers to go w/ [facility]. Original Note: Patient medically cleared for dc home w/ services via [facility]. S[facility]O. will transport. RN aware.
== END 2025-04-12 10:54 | disposition home health service (06) | DRG 66 ==
LOC: HO.ED 12:16 → HO.EDOVER 13:00 → HO.IMC 14:41
PROVIDERS: Physician Assistant; Admitting Provider Student in an Organized Health Care Education/Training Program; Emergency Provider Emergency Medicine; PCP Internal Medicine; Visit Provider Internal Medicine
DX: I63.232 Cerebral infarction due to unspecified occlusion or stenosis of left carotid arteries (principal); R47.01 Aphasia; R29.703 NIHSS score 3; I10 Essential (primary) hypertension; E11.65 Type 2 diabetes mellitus with hyperglycemia; G40.909 Epilepsy, unspecified, not intractable, without status epilepticus; Z87.891 Personal history of nicotine dependence; Z79.4 Long term (current) use of insulin; Z79.02 Long term (current) use of antithrombotics/antiplatelets; Z79.899 Other long term (current) drug therapy
CPT/HCPCS: 36415; 70450; 70496; 70498; 70551; 80048; 80061; 81001; 82947; 83036; 83735; 84484; 85025; 85027; 85610; 85730; 93005; 97162; 99202; 99285; J1650; J1920; Q9967

== ENCOUNTER → 2025-04-10 11:54 | Outpatient (BNV) | payer MEDICARE, OTHER, SELFPAY | PROVIDERS: Emergency Provider Emergency Medicine; PCP Internal Medicine; Visit Provider Radiology Diagnostic Radiology | DX: I63.9 Cerebral infarction, unspecified (principal) | CPT/HCPCS: 70551 ==

== ENCOUNTER → 2025-04-10 11:54 | Outpatient (BNV) | payer MEDICARE, OTHER, SELFPAY | PROVIDERS: Admitting Provider Student in an Organized Health Care Education/Training Program; Emergency Provider Emergency Medicine; PCP Internal Medicine; Visit Provider Internal Medicine Cardiovascular Disease | DX: I49.3 Ventricular premature depolarization (principal); I45.10 Unspecified right bundle-branch block; R00.0 Tachycardia, unspecified | CPT/HCPCS: 93010 ==

== ENCOUNTER → 2025-04-10 12:59 | Outpatient (BNV) | payer MEDICARE, OTHER, SELFPAY | PROVIDERS: Admitting Provider Student in an Organized Health Care Education/Training Program; Emergency Provider Emergency Medicine; PCP Internal Medicine; Visit Provider Student in an Organized Health Care Education/Training Program | DX: R47.89 Other speech disturbances (principal) | CPT/HCPCS: 99223; 99232; 99239; G0180 ==

== ENCOUNTER 2025-04-21 09:52 | Outpatient (AMB) | payer MEDICARE, OTHER, SELFPAY ==
--- NOTE | 2025-04-21 09:53 | A.OFFPC_ITS ---
Vital Signs 04/21/25 09:57 Height 5 ft 10 in Weight 81.193 kg BMI 25.7 BP 160/80 H Respiration 16 Pulse 103 H Pulse Source Pulse Oximeter Temp 98.5 F Temp Source Temporal Artery Scan Pulse Oximetry (%) 99 Oxygen Delivery Method Room Air Intake Visit Reasons: Hospital F/U Top Taper Machine Required: No Accompanied by: Significant Other Allergies No Known Allergies Allergy (Verified 04/23/25 08:02) HPI HPI Comments History of Present Illness Details 74-year-old male with history of CVA, se izure disorder, uncontrolled type 2 diabetes, hypertension, hyperlipidemia presents to the office today for hospital discharge follow-up as well as for management of chronic conditions and to establish care. The patient was hospitalized at [facility] from 04/10-04/12 due to acute CVA. The patient had presented to the ED difficulty speaking and word finding difficulty. No other focal neuro deficits. He was not a TNK candidate CT of the head showed no acute intracranial abnormality and CTA of the head/neck showed 70-80% stenosis of the proximal right and left ICA but was otherwise limited by motion artifact. He was hypertensive to 202/96 on arrival. Glucose was also significantly elevated at 451 Na was slightly hypertensive to 132 with sinus rhythm. He in the ED was given labetalol 10 mg IV, IV fluids and 10 units of regular insulin. MRI of the brain showed patchy small foci of acute/subacute infarction involving the left posterior frontal operculum, left parietal lobe and posterior left insular cortex with largest area of infarction measuring 2.4 x 1.8 cm. There were also chronic changes noted. Hemoglobin A1c was also checked and was significantly elevated at 10.25%. Renal function was baseline and electrolyte levels normal. He was seen by Neurology and monitor on telemetry. Neurology recommended continuing baby aspirin and adding Plavix as well as increasing to high-intensity statin. While in the hospital, amlodipine was decreased to 5 mg daily and he was recommended to follow-up with vascular surgery for possible endarterectomy. He has since discharged home with PT and OT. He was also referred for speech therapy but has not been evaluated yet by [facility] for this. He presents today accompanied by his . He is still experiencing word- finding difficulty which is intermittent and his reports it is significantly improved today. He denies any dysphagia. He had he does have some weakness in the right hand but is able to move this. He also has a tingling sensation. He has also had some improvement with the functionality in his right hand and is able to turn knobs and bottles better. Since the CVA, he is also significantly changed his diet with his . For his whole life, he has not had a good diet. He has been using 16 units of Basaglar as well as sliding scale insulin. He has been checking his glucose levels at home which have been in the high 100s primarily with occasional glucose levels up to 248. In addition to his insulin, he is also compliant with Ozempic. Hypertension-on amlodipine 5 mg daily Hyperlipidemia-LDL in the hospital 36 however statin increased. Now on rosuvastatin 40 mg daily. Seizure disorder-following CVA 8 years ago. He has been on Keppra without any recurrence. He is no longer following with Neurology ROS: General: No fevers, malaise, unintentional weight loss HEENT: No blurred vision, diplopia. No sore throat, nasal congestion, rhinorrhea, sinus pain, ear pain Cardiovascular: No chest pain, palpitations, or leg edema Respiratory: No shortness of breath, wheezing, cough GI: No abdominal pain, nausea, vomiting, diarrhea, constipation, melena, hematochezia : No dysuria, hematuria, increased urinary frequency, decreased urinary output MSK: No myalgia, back pain Neuro: see hpi Skin: No rashes or lesions EXAM: Constitutional - Awake and Alert, No apparent distress Eyes - PERRLA, EOMI Cardiovascular - S1S2, RRR, No edema Respiratory - Normal lung expansion, Normal respiratory effort, No respiratory distress, CTA bilaterally Gastrointestinal - NT / ND; +BS; No rebound or guarding - No CVA tenderness Extremities - no calf tenderness bilaterally, no swelling Musculoskeletal - Normal inspection, normal ROM Skin - Warm/Dry Neurological - Alert & oriented x3, CN II-XII in tact, 4/5 strength RUE, 5/5 LUE. Sensation in tact. expressive aphasia Psychological - Appropriate affect FOR[facility]LY [facility], [facility] Medical History (Updated 04/24/25 @ 16:47 by WILLA Simeon) CKD (chronic kidney disease) stage 3, GFR 30-59 ml/min Long-term insulin use CVA (cerebral vascular accident) Uncontrolled diabetes mellitus with hyperglycemia Insulin dependent type 2 diabetes mellitus HLD (hyperlipidemia) Word finding difficulty Hypertension Social History Housing: House Alcohol intake: never Patient Tobacco Use Status: Former Tobacco user Second Hand Smoke Exposure: No service: No Questionnaire PHQ-9 Over the last 2 weeks, how often have you been bothered by any of the following problems? 1. Little interest or pleasure in doing things: nearly every day 2. Feeling down, depressed, or hopeless: nearly every day 3. Trouble falling or staying asleep, or sleeping too much: not at all 4. Feeling tired or having little energy: not at all 5. Poor appetite or overeating: not at all 6. Feeling bad about yourself - or that you are a failure or have let yourself or your family down: not at all 7. Trouble concentrating on things, such as reading the newspaper or watching television: nearly every day 8. Moving or speaking so slowly that other people could have noticed. Or the opposite - being so fidgety or restless that you have been moving around a lot more than usual: nearly every day 9. Thoughts that you would be better off or of hurting yourself in some way: not at all Total score: 12 Source: Developed by Drs. Arben Stafford, Kyung Perla, Ja Delarosa and colleagues, with an educational gilma from [employer]. Thrive Questionnaire Date Thrive assessed: 04/21/25 I am a: Patient What is your living situation today?: I have a steady place to live Within the past 12 months, did the food you bought not last and you didn't have the money to get more?: Never true Within the past 12 months, did you worry whether your food would run out before you got money to buy more?: Never true Do you have trouble paying for medicines?: No Do you have trouble getting transportation to medical appointments?: No Do you have trouble paying your heating and electricity bill?: No Do you have trouble taking care of your child, family member or friend?: No Do you have trouble with day-to-day activities such as bathing, preparing meals, shopping, managing finances, etc.?: No Are you currently unemployed and looking for a job?: No Are you interested in more education?: No Please select the resources that you would like help with: None THRIVE Score: 0 JULIA-7 AMB Questionnaire JULIA-7 Date JULIA - 7 assessed: 04/21/25 Feeling nervous, anxious, or on edge: 0 = Not at all Not being able to stop or control worryin = Not at all Worrying too much about different things: 0 = Not at all Trouble relaxin = Not at all Being so restless that it is hard to sit still: 0 = Not at all Becoming easily annoyed or irritable: 2 = More than half the days Feeling afraid as if something awful might happen: 0 = Not at all Total JULIA-7 score (0-4 normal; 5-9 mild; 10-14 moderate; 15-21 severe): 2 Source: Developed by Drs. Arben Stafford, Kyung Perla, Ja Delarosa and colleagues, with an educational gilma from [employer]. Physical exam (Primary Care) Vital Signs: Last Vital Signs Temp 98.5 F 04/21/25 09:57 Pulse 103 H 04/21/25 09:57 Resp 16 04/21/25 09:57 BP 160/80 H 04/21/25 09:57 Pulse Ox 99 04/21/25 09:57 Oxygen Delivery Method Room Air 04/21/25 09:57 BMI result Body Mass Index 25.7 Tobacco/Smoking Status: Tobacco use Status Patient Tobacco Use Status Former Tobacco user 04/21/25 09:56 PHQ-9: PHQ-9 Score PHQ-9: Total score 12 04/22/25 17:40 Thrive Assessment: Date of Thrive Assessment Date Thrive assessed 04/21/25 04/21/25 10:40 Coding Level of Care Code Est Pt Level 5 (68022) Complex EM visit Add On G2211 Diagnoses Expressive aphasia R47.01 Primary hypertension I10 Hypertension type: primary hypertension Mixed hyperlipidemia E78.2 Hyperlipidemia type: mixed hyperlipidemia Carotid stenosis I65.29 Uncontrolled type 2 diabetes mellitus with hyperglycemia E11.65 Diabetes mellitus type: type 2 Assessment & Plan Assessment & Plan (1) Expressive aphasia: Code(s): R47.01 - Aphasia Category: Medical Plan: Related to CVA. Improving. Continue following with Shelly GARIBAY speech therapy once available. Continue aspirin, Plavix, rosuvastatin (2) Hypertension: Code(s): I10 - Essential (primary) hypertension Category: Medical Qualifiers: Hypertension type: primary hypertension Qualified Code(s): I10 - Essential (primary) hypertension Plan: Uncontrolled. Increase amlodipine back up to 10 mg daily. Low-sodium diet. (3) HLD (hyperlipidemia): Code(s): E78.5 - Hyperlipidemia, unspecified Category: Medical Qualifiers: Hyperlipidemia type: mixed hyperlipidemia Qualified Code(s): E78.2 - Mixed hyperlipidemia Plan: Controlled. Continue rosuvastatin 40 mg daily. (4) Carotid stenosis: Code(s): I65.29 - Occlusion and stenosis of unspecified carotid artery Category: Medical Plan: 70-80% stenosis of the proximal left ICA as well as proximal right ICA. He is not interested in referral to vascular surgery for endarterectomy. Continue aspirin Plavix as well as statin (5) Uncontrolled diabetes mellitus with hyperglycemia: Code(s): E11.65 - Type 2 diabetes mellitus with hyperglycemia Category: Medical Qualifiers: Diabetes mellitus type: type 2 Qualified Code(s): E11.65 - Type 2 diabetes mellitus with hyperglycemia Plan: Uncontrolled with hemoglobin A1c 10.5% though since hospitalization, glucose levels have improved. Continue Basaglar 16 units daily, sliding scale insulin. Ozempic. Add metformin 500 mg ER. Diabetic diet. He is also referred for diabetic teaching. Plan Follow-up in the office in 3 weeks. Referrals as noted below. Increase amlodipine and initiate metformin Time spent with patient 40 minutes, reviewed prior notes including discharge summary, history and physical, CT brain, CTA head/neck, MRI brain. Documentation 10 minutes Orders: Referrals Endocrinology Referral E11.65 - Type 2 diabetes mellitus with hyperglycemia Diabetes Education Referral E11.65 - Type 2 diabetes mellitus with hyperglycemia Medications: New amlodipine 10 mg PO DAILY 90 tabs 1RF metformin ER 500 mg PO DAILY 90 tabs 1RF Discontinued amlodipine Discontinued Reason: Doctor's Order 5 mg PO DAILY 90 tabs 0RF
[2025-04-21 09:57] VITALS: BP 160/80; PULSE 103; RESP 16; TEMP 36.9; O2SAT 99; BMI 25.7
== END 2025-04-21 10:37 | disposition home or self-care (01) ==
LOC: HO.HMCHD 09:53
PROVIDERS: PCP Internal Medicine; Visit Provider Physician Assistant
DX: R47.01 Aphasia (principal); I10 Essential (primary) hypertension; E78.2 Mixed hyperlipidemia; I65.29 Occlusion and stenosis of unspecified carotid artery; E11.65 Type 2 diabetes mellitus with hyperglycemia

== ENCOUNTER → 2025-04-21 09:52 | Outpatient (BNVA) | payer MEDICARE, OTHER, SELFPAY | PROVIDERS: PCP Internal Medicine; Visit Provider Physician Assistant | DX: E11.65 Type 2 diabetes mellitus with hyperglycemia (principal); E78.2 Mixed hyperlipidemia; I10 Essential (primary) hypertension; R47.01 Aphasia; I65.29 Occlusion and stenosis of unspecified carotid artery; Z86.73 Personal history of transient ischemic attack (TIA), and cerebral infarction without residual deficits | CPT/HCPCS: 96127; 99212 ==

== ENCOUNTER 2025-04-23 07:49 | Outpatient (AMB) | payer MEDICARE, OTHER, SELFPAY ==
--- NOTE | 2025-04-23 07:57 | MHC.OFFVIS ---
Vital Signs 04/23/25 08:00 Height 5 ft 10 in Weight 179 lb 14.355 oz BMI 25.8 BP 142/78 H Blood Pressure Location Lt brachial Position Sitting Pulse 91 Pulse Source Pulse Oximeter Pulse Oximetry (%) 97 Oxygen Delivery Method Room Air Intake Visit Reasons: Diabetes Type 2 Intake Note: Patient present today for Type 2 Diabetes Mellitus Last Diabetic eye exam: About 8 years ago Last Podiatry Visit: Doesn't have one Random Glucose: 225 mg/dl HgA1C: 10.5% 04/10/25 Cannoneer Required: No Accompanied by: Spouse Allergies No Known Allergies Allergy (Verified 04/23/25 08:02) Medication List - Last Reconciled 04/23/25 by Radha Krause MD amlodipine 10 mg PO DAILY aspirin 81 mg PO DAILY clopidogrel (Plavix) 75 mg PO DAILY insulin glargine (Basaglar KwikPen U-100 Insulin) 16 units subcut DAILY levetiracetam 750 mg PO BID metformin ER 500 mg PO DAILY pen needle, diabetic As directed rosuvastatin (Crestor) 40 mg PO DAILY HPI Comments Details: 74-year-old male coming in today for initial evaluation of type 2 diabetes mellitus. Otherwise medical history significant for CVA, hypertension, hyperlipidemia. Here today with Maru , significant other . History of diabetes Diagnosed in 60s. Diagnosed about 9 years ago, when he was hospitalized with stroke and found to be hyperglycemic Was previously managed by PCP Dr. Brown, didnt have endo before Prior therapy: No other meds tried Has been on insulin since diagnosis Current regimen: Basagalar 16 units daily at 11 AM Metformin ER 500 mg daily Denies any symptoms of hyperglycemia including polyphagia, polyuria, polydipsia. Denies any hypoglycemic symptoms. A1c 04/10/2025 10.5% SMBG's hadnt checked for many years, since march 2025 since discharge restarted started checking fasting 157, 140. Vaccines: never gets the flu vaccine , got one half of a covid vaccine during pandemic, never got pneumococcal vaccine Random Glucose: 225 mg/dl HgA1C: 10.5% 04/10/25 Complications Eye exam: Last eye exam was 8 years ago , doesnt know if history of retinopathy, he had had optic nerve Neuropathy: does have symptoms of numbness tingling but not too bothersome, doesnt see fruit thinner Kidney disease: CKD stage IIIB, 04/12/2025 GFR 34, never seen stenciler, no urine microalbumin in chart, didnt know about kidney disease Macrovascular complications: CVA X 2, most recently in March 2025 was found to have a acute/subacute ICA infarct Statin: Rosuvastatin 40 mg daily, LDL 36 from 04/10/2025 JORGE/ARB: none Exercise: no Diet control: Breakfast 8 AM: coffee , cereal with milk Snack at 11 AM: atkins protein bar Lunch noon : canned soup or canned stew, or sandwich with fruits Supper He has never had any hospitalizations for hyperglycemia/hypoglycemia. Physical exam General: sitting comfortably in no acute distress HEENT: normocephalic/atraumatic, Neck: supple, symmetrical Cardiac: normal heart sounds Pulm: normal breath sounds B/L, no added breath sounds Abd: not distended, no tenderness Extremities: Mild bilateral pedal edema Foot exam: intact sensation to monofilament, intact pulses, , well-perfused, however very poor foot care, elongated nails, Laboratory Tests 04/10/25 04/12/25 12:02 07:21 Sodium 137 138 Potassium 5.0 4.6 BUN 32 H Creatinine 1.97 H 1.92 H Estim Creat Clear Calc 33.4 34.3 Estimated GFR 34 Random Glucose 451 H* 177 H Estimat Average Glucose 255 Hemoglobin A1c % 10.5 H Triglycerides 61 Cholesterol 80 LDL Cholesterol, Calc 36 HDL Cholesterol 32 L [facility] Medical History (Updated 04/23/25 @ 09:18 by Radha Krause MD) CKD (chronic kidney disease) stage 3, GFR 30-59 ml/min Long-term insulin use CVA (cerebral vascular accident) Uncontrolled diabetes mellitus with hyperglycemia Insulin dependent type 2 diabetes mellitus HLD (hyperlipidemia) Word finding difficulty Hypertension Social History Housing: House Alcohol intake: never Patient Tobacco Use Status: Former Tobacco user Second Hand Smoke Exposure: No service: No Physical Exam Vital Signs: Last Vital Signs Pulse 91 04/23/25 08:00 BP 142/78 H 04/23/25 08:00 Pulse Ox 97 04/23/25 08:00 Oxygen Delivery Method Room Air 04/23/25 08:00 BMI result Body Mass Index 25.8 Results Reviewed Results Reviewed: Laboratory Last Values Glucose (Clinic) 225 mg/dL (60-115) H 04/23/25 08:04 Assessment & Plan Assessment & Plan (1) Uncontrolled diabetes mellitus with hyperglycemia: Code(s): E11.65 - Type 2 diabetes mellitus with hyperglycemia Category: Medical Qualifiers: Diabetes mellitus type: type 2 Qualified Code(s): E11.65 - Type 2 diabetes mellitus with hyperglycemia Plan: 74-year-old male coming in today for initial evaluation of type 2 diabetes mellitus with long-term insulin use with complications of neuropathy, CKD stage 3, CVA, most recent A1c from March 2025 elevated at 10.5% when he was recently hospitalized in March 2025 for stroke. He does have some expressive aphasia but it is improving. Given history of stroke, he would be an excellent candidate for a GLP 1 agonist as that besides controlling hyperglycemia also reduces the chances of further stroke. He has high ASCVD risk score of 41.3%. Plan: -start Ozempic 0.25 mg weekly for 4 weeks and then go up to 0.5 mg weekly -continue metformin 500 mg daily -continue Basaglar 16 units daily -Check blood sugars at least daily fasting (90 to 120) and sometimes 2 hours post meals (<140) -long-term insulin use, prescribed [employer] Jose Daniel 3 sensor, establish with the educator -see the public relations supervisor -referral for Podiatry sent -For a 4 ophthalmology sent, has not had an eye appointment for 8 years, unclear whether he has history of retinopathy. -Do urine test , no urine microalbumin in the chart, he has history of CKD stage 3, likely due to hypertension and diabetes, does not follow up with Nephrology (2) Long-term insulin use: Code(s): Z79.4 - superintendent marine [employer] (current) use of insulin Category: Medical Plan: See above (3) HLD (hyperlipidemia): Code(s): E78.5 - Hyperlipidemia, unspecified Category: Medical Qualifiers: Hyperlipidemia type: mixed hyperlipidemia Qualified Code(s): E78.2 - Mixed hyperlipidemia Plan: LDL within goal from March 2025 but he recently had a CVA, rosuvastatin was increased to 40 mg daily in March 2025. Continue rosuvastatin. (4) Hypertension: Code(s): I10 - Essential (primary) hypertension Category: Medical Qualifiers: Hypertension type: primary hypertension Qualified Code(s): I10 - Essential (primary) hypertension Plan: Mildly elevated today, amlodipine was increased by PCP a few days ago to 10 mg daily. Continue current regimen. He would likely also benefit from an JORGE inhibitor/Arb, we will consider at next visit. (5) CKD (chronic kidney disease) stage 3, GFR 30-59 ml/min: Code(s): N18.30 - Chronic kidney disease, stage 3 unspecified Category: Medical Qualifiers: Chronic kidney disease stage 3 subtype: stage 3b (GFR 30-44) Qualified Code(s): N18.32 - Chronic kidney disease, stage 3b Plan: See above Plan I spent 60 minutes in reviewing the record, seeing the patient and documenting in the medical record. Orders: Orders Microalbumin, Random (w Creat) Today E11.65 - Type 2 diabetes mellitus with hyperglycemia Referrals Podiatry Referral E11.65 - Type 2 diabetes mellitus with hyperglycemia Ophthalmology Referral E11.65 - Type 2 diabetes mellitus with hyperglycemia Diabetes Education Referral E11.65 - Type 2 diabetes mellitus with hyperglycemia Bow String Maker Nutrition Referral E11.65 - Type 2 diabetes mellitus with hyperglycemia Medications: New semaglutide (Ozempic) 0.25 mg weekly for 4 weeks, then 0.5 mg weekly 0.25 mg (0.368 mL) subcut QWEEK 3 mL 1RF blood-glucose sensor (FreeStyle Jose Daniel 3 Plus Sensor device) As directed every 14 days 6 ea 3RF E11.65 - Type 2 diabetes mellitus with hyperglycemia, Z79.4 - [facility] (current) use of insulin blood-glucose,admissions manager rn,cont (FreeStyle Jose Daniel 3 [place]) As directed 1 ea 0RF E11.65 - Type 2 diabetes mellitus with hyperglycemia, Z79.4 - superintendent [employer] (current) use of insulin blood-glucose meter (FreeStyle Lite Meter kit) As directed to check blood sugars 3 times a day 1 ea 0RF E11.65 - Type 2 diabetes mellitus with hyperglycemia, Z79.4 - [facility] (current) use of insulin blood sugar diagnostic (FreeStyle Lite Strips) As directed to check blood sugars three times a day 100 ea 2RF E11.65 - Type 2 diabetes mellitus with hyperglycemia, Z79.4 - superintendent [employer] (current) use of insulin blood sugar diagnostic (FreeStyle Test strips) As directed to check blood sugars three times a day 100 ea 2RF E11.65 - Type 2 diabetes mellitus with hyperglycemia, Z79.4 - superintendent [employer] (current) use of insulin Patient Instructions: Cotninue metformin 500 mg daily Continue insulin basaglar 16 units daily Start Ozempic weekly injection 0.25 mg weekly for 4 weeks, then increase to 0.5 mg weekly Check blood sugars at least daily fasting (90 to 120) and sometimes 2 hours post meals (<140) Do urine test Rule of 15 Treatment for Hypoglycemia (Low blood sugar) If your blood glucose is low (70 and below)*, follow the steps below to treat: Eat or drink something from the list below equal to 15 grams of carbohydrate (carb). Rest for 15 minutes Re-check your blood glucose. If it is still low, (below 70), repeat step 1 above. ? If your next meal is more than an hour away, you will need to eat one carbohydrate choice as a snack to keep your blood glucose from going low again. ?If you can't figure out why you have low blood glucose, call your healthcare provider, as your medicine may need to be adjusted. ?Always carry something with you to treat an insulin reaction. Use food from the list below. ? Foods equal to One Carbohydrate Choice (15 grams of carbohydrate): 3 Glucose ?tablets or 4 Dextrose tablets 4 ounces of fruit juice 5-6 ounces (about 1/2 can) of regular soda such as Coke or Pepsi ? 7-8 gummy or regular Life Savers ? 1 Tbsp. of sugar or jelly NOTE: If your blood sugar is less than 50, double the portion above for a total of 30 gm. ?Carbohydrate. ? Follow meal plan of 45-60 g of consistent carbohydrates at 3 meals each day and 15 g of carbohydrate at 1-2 snacks each day. See foot doctor see eye doctor See the educator Bring meter and once brain picker sensor and reader to all appointments See the nutrionist Coding Level of Care Code New Pt Level 5 (92413) Diagnoses Uncontrolled type 2 diabetes mellitus with hyperglycemia E11.65 Diabetes mellitus type: type 2 Long-term insulin use Z79.4 Mixed hyperlipidemia E78.2 Hyperlipidemia type: mixed hyperlipidemia Primary hypertension I10 Hypertension type: primary hypertension Stage 3b chronic kidney disease N18.32 Chronic kidney disease stage 3 subtype: stage 3b (GFR 30-44) Time Spent (min) 60
[2025-04-23 08:00] VITALS: BP 142/78; PULSE 91; O2SAT 97; BMI 25.8
[2025-04-23 08:09] LABS: Glucose, Whole Blood 225 mg/dL (60-115)
== END 2025-04-23 09:14 | disposition home or self-care (01) ==
LOC: HO.ENCR 07:49
PROVIDERS: PCP Internal Medicine; Visit Provider Student in an Organized Health Care Education/Training Program
DX: E11.22 Type 2 diabetes mellitus with diabetic chronic kidney disease (principal); N18.32 Chronic kidney disease, stage 3b; E11.65 Type 2 diabetes mellitus with hyperglycemia; Z79.4 Long term (current) use of insulin; E11.69 Type 2 diabetes mellitus with other specified complication; E78.2 Mixed hyperlipidemia; I10 Essential (primary) hypertension
CPT/HCPCS: 99205

== ENCOUNTER → 2025-04-23 07:49 | Outpatient (BNVA) | payer MEDICARE, OTHER, SELFPAY | PROVIDERS: PCP Internal Medicine; Visit Provider Student in an Organized Health Care Education/Training Program | DX: E11.22 Type 2 diabetes mellitus with diabetic chronic kidney disease (principal); I12.9 Hypertensive chronic kidney disease with stage 1 through stage 4 chronic kidney disease, or unspecified chronic kidney disease; N18.32 Chronic kidney disease, stage 3b; E11.65 Type 2 diabetes mellitus with hyperglycemia; E78.2 Mixed hyperlipidemia; Z79.4 Long term (current) use of insulin; Z79.84 Long term (current) use of oral hypoglycemic drugs | CPT/HCPCS: 82947; 99202 ==

== ENCOUNTER 2025-05-13 08:53 | Outpatient (AMB) | payer MEDICARE, OTHER, SELFPAY ==
--- NOTE | 2025-05-13 08:55 | MHC.PC.OV ---
Intake Visit Reasons: 3 Week F/U Allergies No Known Allergies Allergy (Verified 05/13/25 08:55) [facility] Medical History (Updated 04/24/25 @ 16:47 by WILLA Simeon) CKD (chronic kidney disease) stage 3, GFR 30-59 ml/min Long-term insulin use CVA (cerebral vascular accident) Uncontrolled diabetes mellitus with hyperglycemia Insulin dependent type 2 diabetes mellitus HLD (hyperlipidemia) Word finding difficulty Hypertension Social History Housing: House Alcohol intake: never Patient Tobacco Use Status: Former Tobacco user Second Hand Smoke Exposure: No service: No Questionnaire Thrive Questionnaire Date Thrive assessed: 04/21/25 JULIA-7 AMB Questionnaire JULIA-7 Date JULIA - 7 assessed: 04/21/25 Source: Developed by Drs. Arben Stafford, Kyung Perla, Ja Delarosa and colleagues, with an educational gilma from [employer]. Physical exam (Primary Care) Tobacco/Smoking Status: Tobacco use Status Patient Tobacco Use Status Former Tobacco user 05/06/25 10:12 Thrive Assessment: Date of Thrive Assessment Date Thrive assessed 04/21/25 05/06/25 10:12 Coding
--- NOTE | 2025-05-13 08:58 | A.OFFPC_ITS ---
Vital Signs 05/13/25 09:01 05/13/25 09:26 Height 5 ft 10 in Weight 79.379 kg BMI 25.1 BP 158/76 H 136/70 Respiration 14 Pulse 87 Pulse Source Pulse Oximeter Temp 98.0 F Temp Source Temporal Artery Scan Pulse Oximetry (%) 98 Oxygen Delivery Method Room Air Intake Visit Reasons: 3 Week F/U Qc Scientist Required: No Accompanied by: Self / Same As Patient Allergies No Known Allergies Allergy (Verified 05/13/25 08:58) Medication List - Last Reconciled 05/13/25 by WILLA Simeon amlodipine 10 mg PO DAILY aspirin 81 mg PO DAILY blood sugar diagnostic (FreeStyle Lite Strips) As directed to check blood sugars three times a day blood sugar diagnostic (FreeStyle Test strips) As directed to check blood sugars three times a day blood-glucose meter (FreeStyle Lite Meter kit) As directed to check blood sugars 3 times a day blood-glucose sensor (FreeStyle Jose Daniel 3 Plus Sensor device) As directed every 14 days blood-glucose,admitting office escort,cont (FreeStyle Jose Daniel 3 [place]) As directed clopidogrel (Plavix) 75 mg PO DAILY insulin glargine (Basaglar KwikPen U-100 Insulin) 16 units subcut DAILY levetiracetam 750 mg PO BID metformin ER 500 mg PO DAILY pen needle, diabetic As directed rosuvastatin (Crestor) 40 mg PO DAILY HPI HPI Comments History of Present Illness Details 74-year-old male with history of CVA, se izure disorder, uncontrolled type 2 diabetes, hypertension, hyperlipidemia presents to the office today for follow- up. He was seen in the office 2 weeks ago for hospital discharge follow-up due to acute CVA. While in the hospital, had hemoglobin A1c of 10 point 5%. At last visit, he was started on metformin 500 mg ER as his glucose levels had improved since discharge. He does also wear a CGM showing average glucose of 154 in the office today. He does appear to have significant fasting glucose elevations. He does report compliance with Basaglar 16 units daily as well as the metformin. He has been seen by endocrinology and does have follow-up early next month. He was also started on amlodipine 10 mg daily at last visit due to significantly elevated blood pressures. Blood pressures 136/70 in the office today. It was also noted to have severe carotid stenosis and does have upcoming appointment with vascular surgery early next month. He continues on Crestor and baby aspirin. He questions why he is on the Keppra as he denies any known history of seizures. Discussed that while hospitalized, he did experience seizure activity. Discussed that a CVA can predispose him to seizure activity. He was started on Keppra 750 mg after his 1st stroke which he has been taking twice daily and has not had any recurrence of seizure activity. He has a has concerns regarding urine collection for microalbuminuria screening. Discussed that he can ask for a to assist with urine collection. Discussed that the test is to check for any protein in the urine that may be present secondary to elevated glucose levels and renal damage. Unfortunately, he has had severe hyperkalemia in the past with K up to 7.0, and is no longer on any Valentin or Arb. Renal function/GFR is consistent with CKD stage 3. He does not follow with Nephrology. ROS: ROS: General: No fevers, malaise, unintentional weight loss HEENT: No blurred vision, diplopia. No sore throat, nasal congestion, rhinorrhea, sinus pain, ear pain Cardiovascular: No chest pain, palpitations, or leg edema Respiratory: No shortness of breath, wheezing, cough MSK: No myalgia, back pain Neuro: No headaches, weakness, paresthesias Skin: No rashes or lesions EXAM: Constitutional - Awake and Alert, No apparent distress Eyes - PERRL Cardiovascular - S1S2, RRR, No edema Respiratory - Normal lung expansion, Normal respiratory effort, No respiratory distress, CTA bilaterally Extremities - no calf tenderness bilaterally, no swelling Skin - Warm/Dry Neurological - Alert & oriented x3 Psychological - Appropriate affect [facility] Medical History (Updated 04/24/25 @ 16:47 by WILLA Simeon) CKD (chronic kidney disease) stage 3, GFR 30-59 ml/min Long-term insulin use CVA (cerebral vascular accident) Uncontrolled diabetes mellitus with hyperglycemia Insulin dependent type 2 diabetes mellitus HLD (hyperlipidemia) Word finding difficulty Hypertension Social History Housing: House Alcohol intake: never Patient Tobacco Use Status: Former Tobacco user Second Hand Smoke Exposure: No service: No Questionnaire Thrive Questionnaire Date Thrive assessed: 04/21/25 JULIA-7 AMB Questionnaire JULIA-7 Date JULIA - 7 assessed: 04/21/25 Source: Developed by Drs. Arben Stafford, Kyung Perla, Ja Delarosa and colleagues, with an educational gilma from [employer]. Physical exam (Primary Care) Vital Signs: Last Vital Signs Temp 98.0 F 05/13/25 09:01 Pulse 87 05/13/25 09:01 Resp 14 05/13/25 09:01 BP 136/70 05/13/25 09:26 Pulse Ox 98 05/13/25 09:01 Oxygen Delivery Method Room Air 05/13/25 09:01 BMI result Body Mass Index 25.1 Tobacco/Smoking Status: Tobacco use Status Patient Tobacco Use Status Former Tobacco user 05/13/25 09:03 Thrive Assessment: Date of Thrive Assessment Date Thrive assessed 04/21/25 05/13/25 09:03 Coding Level of Care Code Est Pt Level 4 (65219) Complex EM visit Add On G2211 Diagnoses Primary hypertension I10 Hypertension type: primary hypertension Carotid stenosis I65.29 Uncontrolled type 2 diabetes mellitus with hyperglycemia E11.65 Diabetes mellitus type: type 2 Expressive aphasia R47.01 Assessment & Plan Assessment & Plan (1) Hypertension: Code(s): I10 - Essential (primary) hypertension Category: Medical Qualifiers: Hypertension type: primary hypertension Qualified Code(s): I10 - Essential (primary) hypertension Plan: Controlled on recheck. Continue amlodipine 10 mg daily. (2) Carotid stenosis: Code(s): I65.29 - Occlusion and stenosis of unspecified carotid artery Category: Medical Plan: Follow-up with vascular surgery as scheduled. Continue dual antiplatelet therapy as well as statin. (3) Uncontrolled diabetes mellitus with hyperglycemia: Code(s): E11.65 - Type 2 diabetes mellitus with hyperglycemia Category: Medical Qualifiers: Diabetes mellitus type: type 2 Qualified Code(s): E11.65 - Type 2 diabetes mellitus with hyperglycemia Plan: Previous hemoglobin A1c uncontrolled. However, on review of CGM, average glucose is 154, consistent with estimated A1c 7.0%, much improved. There is still elevated fasting glucose. Follow up with endocrinology. Can increase metforming to 500mg ER twice daily to achieve better fasting glucose control. Continue basaglar and blood glucose monitoring. Diabetic diet (4) Expressive aphasia: Code(s): R47.01 - Aphasia Category: Medical Plan: Improved. Continue working with ST> Plan Follow-up in the office in 4 months with labs completed prior to visit. Orders: Orders Hemoglobin A1c 3 Months E11.65 - Type 2 diabetes mellitus with hyperglycemia, I10 - Essential (primary) hypertension Basic Metabolic Panel 3 Months E11.65 - Type 2 diabetes mellitus with hyperglycemia, I10 - Essential (primary) hypertension
[2025-05-13 09:01] VITALS: BP 158/76; PULSE 87; RESP 14; TEMP 36.7; O2SAT 98; BMI 25.1
[2025-05-13 09:26] VITALS: BP 136/70
== END 2025-05-13 09:45 | disposition home or self-care (01) ==
LOC: HO.HMCHD 08:54
PROVIDERS: PCP Internal Medicine; Visit Provider Physician Assistant
DX: I10 Essential (primary) hypertension (principal); I65.29 Occlusion and stenosis of unspecified carotid artery; E11.65 Type 2 diabetes mellitus with hyperglycemia; R47.01 Aphasia

== ENCOUNTER → 2025-05-13 08:53 | Outpatient (BNVA) | payer MEDICARE, OTHER, SELFPAY | PROVIDERS: PCP Internal Medicine; Visit Provider Physician Assistant | DX: I10 Essential (primary) hypertension (principal); I65.29 Occlusion and stenosis of unspecified carotid artery; E11.65 Type 2 diabetes mellitus with hyperglycemia; R47.01 Aphasia; Z86.73 Personal history of transient ischemic attack (TIA), and cerebral infarction without residual deficits; Z79.84 Long term (current) use of oral hypoglycemic drugs; Z79.899 Other long term (current) drug therapy | CPT/HCPCS: 99212 ==

== ENCOUNTER 2025-05-14 09:18 | Outpatient (REF) | payer MEDICARE, OTHER, SELFPAY ==
[2025-05-14 10:53] LABS: Creatinine Urine 70.49 mg/dL; Microalbum/Creatinine Ratio Ur 208.5 ug/mg cr (<30)
== END 2025-05-14 09:19 | disposition home or self-care (01) ==
LOC: HO.10HDLNP 09:18
PROVIDERS: Visit Provider Student in an Organized Health Care Education/Training Program
DX: E11.65 Type 2 diabetes mellitus with hyperglycemia (principal)
CPT/HCPCS: 82043; 82570

== ENCOUNTER 2025-05-18 09:54 | Outpatient (AMB) | payer MEDICARE, OTHER, SELFPAY ==
--- NOTE | 2025-05-18 10:47 | A.OFFVIS_ITS ---
Intake Intake Visit Reasons: Type 2 diabetes mellitus with hyperglycemia Allergies No Known Allergies Allergy (Verified 05/13/25 08:58) HPI Comprehensive Diabetes Asmnt Most Recent Diabetes Results: 2 Microalb/Creat Ratio, (<30) 208.5 ug/mg cr H 05/14/25 Cholesterol, (<200) 80 mg/dL 04/10/25 HDL Cholesterol, (>40) 32 mg/dL L 04/10/25 Triglycerides, (<150) 61 mg/dL 04/10/25 Creatinine, (0.5-1.4) 1.92 mg/dL H 04/12/25 BUN, (9-16) 30 mg/dL H 04/12/25 Sodium, (135-145) 138 mmol/L 04/12/25 Potassium, (3.3-5.1) 4.6 mmol/L 04/12/25 Chloride, (96-108) 108 mmol/L 04/12/25 Carbon Dioxide, (22-29) 20 mmol/L L 04/12/25 Calcium, (8.4-10.2) 9.1 mg/dL 04/12/25 [facility] Medical History (Updated 04/24/25 @ 16:47 by WILLA Simeon) CKD (chronic kidney disease) stage 3, GFR 30-59 ml/min Long-term insulin use CVA (cerebral vascular accident) Uncontrolled diabetes mellitus with hyperglycemia Insulin dependent type 2 diabetes mellitus HLD (hyperlipidemia) Word finding difficulty Hypertension Social History Housing: House Alcohol intake: never Patient Tobacco Use Status: Former Tobacco user Second Hand Smoke Exposure: No service: No Assessment & Plan Assessment & Plan (1) Uncontrolled diabetes mellitus with hyperglycemia: Code(s): E11.65 - Type 2 diabetes mellitus with hyperglycemia Qualifiers: Diabetes mellitus type: type 2 Qualified Code(s): E11.65 - Type 2 diabetes mellitus with hyperglycemia Plan: Diabetes self-management education and support participation record Assessment/scale: 1= needs instructed? 2= needs review? 3= comprehend keep point? 4= demonstrates understanding/ competent? NC= Not Covered Topics Learning Objective: Initial visit Initial or post srvc Initial or post srvc Initial or post srvc Initial or post srvc Initial or post srvc Post srvc Comments Pre Edu-assessment/plan Outcome or reassess O utcome or reassess Outcome or reassess Outcome or reassess Outcome or reassess Outcome or reassess Diabetes pathophysiology 1 Healthy eating 1 Being active 1 Taking medication 1 Monitoring glucose 1 Acute complication 1 Chronic complicated 1 Lifestyle and healthy coping 1 Diabetes distress in support 1 ?Diabetes pathophysiology: ?Defined diabetes med identify own type of diabetes; list 3 options for treating diabetes Healthy eating: ?Described effect of type, amount and ?timing of food on blood glucose; list 3 methods for planning meal Being active: ?State effect of exercise on blood glucose level Taking medication: ?State effect of diabetes medications on diabetes; name diabetes medications taking, action and side effects Monitoring glucose: ?Identify recommended blood glucose targets and personal target Acute complication: ?List symptoms and treatment of hyper and hypoglycemia, DKA, sick day guidelines and guidelines for severe weather or situations of crisis and diabetes supply manage Chronic complication: ?To find the relationship of blood glucose levels to long- term complications of diabetes in screening and preventative measures Lifestyle and healthy coping: ?Described lifestyle and healthy coping strategies to rule out diabetes self-management Diabetes to stress and support: ?Recognize Diabetes to stress and be able to identified support options Learning objectives: The patient was provided with verbal and written education on the following topics as outlined below. The patient met all learning objectives and was able to verbalize understanding and provide teach back of education topics discussed . The patient was provided with the opportunity to ask questions and all questions were answered. Patient Assessment Assess patient education level/literacy/barriers, patient's last A1c on 04/10/2025 10.5%. Patient has history of CVA, and hyperlipidemia Patient has been using freestyle Jose Daniel 3+ for the past 14 days He is currently taking metformin 500 mg daily Basaglar 16 units daily Reports he has not started Ozempic 0.25 mg, will discuss with provider at next visit Patient questions/concerns What is Diabetes? Pathophysiology How the body produces and uses insulin Identify type of DM Risk factors Signs of Diabetes Brief overview of Diabetes Management Monitoring blood sugar Following a meal plan Regular exercise Maintaining a healthy weight Taking medication as needed Members of the care team (PCP, RN, MA, RD, CDE, machine molder) Blood glucose monitoring When/how often to test Target blood sugar ranges Introduction to Nutrition Importance of healthy diet in managing DM Diet is personalized to individual preference Review patient?s regular diet/food preferences Who prepares meals/does food shopping/ Dining out?/ Barriers? How diet effects glucose Eating 3 balanced meals a day with small, healthy snacks between meals Review food groups Carbohydrates: What is a carbohydrate/Which food/food groups are considered carbohydrates Effect of carbohydrates on blood glucose Portion sizes Reading food labels Basic carb counting (if applicable per nursing assessment) Plate method Meal planning Recommendations: Follow plate method, consistent carbs and read nutritional labels. Smart Goal: At 10-15 minutes of physical activity daily between now and next visit Educational Materials: The patient was provided with the following written educational materials: Planning Healthy Meals Handout Patient Response to instructions: Comprehension of Instructions: Fair Readiness to make changes: Contemplation How confident they feel about making changes: Positive Portions of this note were created using voice recognition software, please excuse any words or phrases that may have been misinterpreted. Patient Instructions: Include regular daily activity. ADA recommends 30 minutes of exercise 5 days a week. Weight loss talk to PCP or Diabetes Education Coordinator before starting new plan. Test blood sugar as directed; Fasting and 2hpp largest meal. Watch trends in results. Utilize results and to assess how food, physical activity and medications affect blood sugar results. Bring glucometer or CGM to next visit. Be knowledgeable about diabetes medication, its action, side effects, efficacy, toxicity, prescribed dosage, appropriate timing and frequency of administration, effect of missed and delayed doses and instructions for storage, travel and safety. Problem solving techniques to monitor hypo/hyperglycemia episodes and treatments. Reduce risk reduction behaviors, smoking cessation, regular eye, foot and dental examinations. Coding Level of Care Code Tele Est Pt Level 1 (41624) Diagnoses Uncontrolled type 2 diabetes mellitus with hyperglycemia E11.65 Diabetes mellitus type: type 2
== END 2025-05-18 10:51 | disposition home or self-care (01) ==
LOC: HO.ENCR 09:55
PROVIDERS: PCP Internal Medicine; Visit Provider Registered Nurse Diabetes Educator
DX: E11.65 Type 2 diabetes mellitus with hyperglycemia (principal)
CPT/HCPCS: 99211

== ENCOUNTER → 2025-05-18 09:54 | Outpatient (BNVA) | payer MEDICARE, OTHER, SELFPAY | PROVIDERS: PCP Internal Medicine; Visit Provider Registered Nurse Diabetes Educator | DX: Z13.89 Encounter for screening for other disorder (principal) ==

== ENCOUNTER 2025-06-02 08:09 | Outpatient (AMB) | payer MEDICARE, OTHER, SELFPAY ==
[2025-06-02 08:13] VITALS: BP 132/70; PULSE 82; O2SAT 98; BMI 24.9
--- NOTE | 2025-06-02 08:13 | MHC.OFFVIS ---
Vital Signs 06/02/25 08:13 Height 5 ft 10 in Weight 173 lb 4.533 oz BMI 24.9 BP 132/70 Blood Pressure Location Lt brachial Position Sitting Pulse 82 Pulse Source Pulse Oximeter Pulse Oximetry (%) 98 Oxygen Delivery Method Room Air Intake Visit Reasons: Diabetes Type 2 Intake Note: Patient present today for Type 2 Diabetes Mellitus Last Diabetic eye exam: 8 years ago but has upcoming appt on 07/30/25 Last Podiatry Visit: Has upcoming appt on 07/13/2025 Random Glucose: 208 mg/dl HgA1C: 10.5% 04/10/25 Concession Worker Required: No Accompanied by: Spouse Allergies No Known Allergies Allergy (Verified 06/02/25 08:19) Medication List - Last Reconciled 06/02/25 by Radha Krause MD amlodipine 10 mg PO DAILY aspirin 81 mg PO DAILY blood sugar diagnostic (FreeStyle Lite Strips) As directed to check blood sugars three times a day blood sugar diagnostic (FreeStyle Test strips) As directed to check blood sugars three times a day blood-glucose meter (FreeStyle Lite Meter kit) As directed to check blood sugars 3 times a day blood-glucose sensor (FreeStyle Jose Daniel 3 Plus Sensor device) As directed every 14 days blood-glucose,vacation sales advisor,cont (FreeStyle Jose Daniel 3 [place]) As directed clopidogrel (Plavix) 75 mg PO DAILY insulin glargine (Basaglar KwikPen U-100 Insulin) 16 units subcut DAILY levetiracetam 750 mg PO BID metformin ER 500 mg PO DAILY pen needle, diabetic USE DIRECTED rosuvastatin (Crestor) 40 mg PO DAILY HPI Comments Details: 74-year-old male coming in today for initial evaluation of type 2 diabetes mellitus. Otherwise medical history significant for CVA, hypertension, hyperlipidemia. Here today with Maru , significant other . History of diabetes Diagnosed in 60s. Diagnosed about 9 years ago, when he was hospitalized with stroke and found to be hyperglycemic Was previously managed by PCP Dr. Brown, didnt have endo before Prior therapy: No other meds tried Has been on insulin since diagnosis Current regimen: Basagalar 16 units daily at 11 AM Metformin ER 500 mg daily He picked up Ozempic , but hast started it Denies any symptoms of hyperglycemia including polyphagia, polyuria, polydipsia. Denies any hypoglycemic symptoms. A1c 04/10/2025 10.5% CGM data downloaded from May 20 to June 02 Time CGM active 93% Average glucose 154 mg/dL G ND 7% Glucose variability 28.6% Within target range 74% Low 0% High 23% Very high 3% Interpretation: Definitely having a lot of postprandial hyperglycemia. His fastings are not that bad. No hypoglycemia. Vaccines: never gets the flu vaccine , got one half of a covid vaccine during pandemic, never got pneumococcal vaccine Random Glucose: 209 mg/dl HgA1C: 10.5% 04/10/25 Complications Eye exam: Last eye exam was 8 years ago , doesnt know if history of retinopathy, he had had optic nerve but has upcoming appt on 07/30/25 Last Podiatry Visit: Has upcoming appt on 07/13/2025 Neuropathy: does have symptoms of numbness tingling but not too bothersome, Kidney disease: CKD stage IIIB, 04/12/2025 GFR 34, never seen affiliate marketing coordinator, urine microalbumin elevated at 208.5 from 05/14/2025. Macrovascular complications: CVA X 2, most recently in March 2025 was found to have a acute/subacute ICA infarct Statin: Rosuvastatin 40 mg daily, LDL 36 from 04/10/2025 JORGE/ARB: none Exercise: no Diet control: Breakfast 8 AM: coffee , cereal with milk Snack at 11 AM: atkins protein bar Lunch noon : canned soup or canned stew, or sandwich with fruits Supper He has never had any hospitalizations for hyperglycemia/hypoglycemia. Physical exam General: sitting comfortably in no acute distress HEENT: normocephalic/atraumatic, Neck: supple, symmetrical Cardiac: normal heart sounds Pulm: normal breath sounds B/L, no added breath sounds Abd: not distended, no tenderness Extremities: Mild bilateral pedal edema Foot exam: done 04/23/25 intact sensation to monofilament, intact pulses, , well-perfused, however very poor foot care, elongated nails, Laboratory Tests 04/10/25 04/12/25 12:02 07:21 Sodium 137 138 Potassium 5.0 4.6 BUN 32 H Creatinine 1.97 H 1.92 H Estim Creat Clear Calc 33.4 34.3 Estimated GFR 34 Random Glucose 451 H* 177 H Estimat Average Glucose 255 Hemoglobin A1c % 10.5 H Triglycerides 61 Cholesterol 80 LDL Cholesterol, Calc 36 HDL Cholesterol 32 L Laboratory Tests 05/14/25 08:00 Urine Creatinine 70.49 Urine Microalbumin 147.0 Microalb/Creat Ratio 208.5 H [facility] Medical History (Updated 04/24/25 @ 16:47 by WILLA Simeon) CKD (chronic kidney disease) stage 3, GFR 30-59 ml/min Long-term insulin use CVA (cerebral vascular accident) Uncontrolled diabetes mellitus with hyperglycemia Insulin dependent type 2 diabetes mellitus HLD (hyperlipidemia) Word finding difficulty Hypertension Social History Housing: House Alcohol intake: never Patient Tobacco Use Status: Former Tobacco user Second Hand Smoke Exposure: No service: No Physical Exam Vital Signs: Last Vital Signs Pulse 82 06/02/25 08:13 BP 132/70 06/02/25 08:13 Pulse Ox 98 06/02/25 08:13 Oxygen Delivery Method Room Air 06/02/25 08:13 BMI result Body Mass Index 24.9 Office Procedures Glucose Monitoring Details Details: See HPI 57075 - Glucose monitoring, continuous-physician I&R Procedure code (CPT) selection complete Results Reviewed Results Reviewed: Laboratory Last Values Glucose (Clinic) 208 mg/dL (60-115) H 06/02/25 08:21 Assessment & Plan Assessment & Plan (1) Uncontrolled diabetes mellitus with hyperglycemia: Code(s): E11.65 - Type 2 diabetes mellitus with hyperglycemia Category: Medical Qualifiers: Diabetes mellitus type: type 2 Qualified Code(s): E11.65 - Type 2 diabetes mellitus with hyperglycemia Plan: 74-year-old male coming in today for initial evaluation of type 2 diabetes mellitus with long-term insulin use with complications of neuropathy, CKD stage 3, CVA, most recent A1c from March 2025 elevated at 10.5% when he was recently hospitalized in March 2025 for stroke. He does have some expressive aphasia but it is improving. Given history of stroke, he would be an excellent candidate for a GLP 1 agonist as that besides controlling hyperglycemia also reduces the chances of further stroke. He has high ASCVD risk score of 41.3%. I did send him a prescription for Ozempic last visit, apparently they picked it up but never started taking it. I am going to put in the prescription again as it has disappeared from his chart. Apparently some other person discontinued it when they side he was not taking it. Plan: -start Ozempic 0.25 mg weekly for 4 weeks and then go up to 0.5 mg weekly -continue metformin 500 mg daily -reduce Basaglar to 14 units daily once you start Ozempic -follow up with the educator -see the vocational training teacher -see Podiatry -For a 4 ophthalmology sent, has not had an eye appointment for 8 years, unclear whether he has history of retinopathy. -urine microalbumin elevated, in the near future we will also consider putting him on Jardiance or Farxiga (2) Long-term insulin use: Code(s): Z79.4 - tank terminal gauger (current) use of insulin Category: Medical Plan: See above (3) HLD (hyperlipidemia): Code(s): E78.5 - Hyperlipidemia, unspecified Category: Medical Qualifiers: Hyperlipidemia type: mixed hyperlipidemia Qualified Code(s): E78.2 - Mixed hyperlipidemia Plan: LDL within goal from March 2025 but he recently had a CVA, rosuvastatin was increased to 40 mg daily in March 2025. Continue rosuvastatin. (4) Hypertension: Code(s): I10 - Essential (primary) hypertension Category: Medical Qualifiers: Hypertension type: primary hypertension Qualified Code(s): I10 - Essential (primary) hypertension Plan: normal range Continue current regimen. He would likely also benefit from an JORGE inhibitor/Arb, we will consider at next visit. (5) CKD (chronic kidney disease) stage 3, GFR 30-59 ml/min: Code(s): N18.30 - Chronic kidney disease, stage 3 unspecified Category: Medical Qualifiers: Chronic kidney disease stage 3 subtype: stage 3b (GFR 30-44) Qualified Code(s): N18.32 - Chronic kidney disease, stage 3b Plan: See above Plan I spent 30 minutes in reviewing the record, seeing the patient and documenting in the medical record. Orders: Orders AMB Glucose Monitoring Today E11.65 - Type 2 diabetes mellitus with hyperglycemia, Z79.4 - shelter (current) use of insulin Medications: New semaglutide (Ozempic) Take 0.25 mg for 4 weeks and then 0.5 mg weekly 0.25 mg (0.368 mL) subcut QWEEK 3 mL 0RF 4 weeks Patient Instructions: Cotninue metformin 500 mg daily Start Ozempic weekly injection 0.25 mg weekly for 4 weeks, then increase to 0.5 mg weekly Once you start OZempic decrease insulin basagalar to 14 units daily Rule of 15 Treatment for Hypoglycemia (Low blood sugar) If your blood glucose is low (70 and below)*, follow the steps below to treat: Eat or drink something from the list below equal to 15 grams of carbohydrate (carb). Rest for 15 minutes Re-check your blood glucose. If it is still low, (below 70), repeat step 1 above. ? If your next meal is more than an hour away, you will need to eat one carbohydrate choice as a snack to keep your blood glucose from going low again. ?If you can't figure out why you have low blood glucose, call your healthcare provider, as your medicine may need to be adjusted. ?Always carry something with you to treat an insulin reaction. Use food from the list below. ? Foods equal to One Carbohydrate Choice (15 grams of carbohydrate): 3 Glucose ?tablets or 4 Dextrose tablets 4 ounces of fruit juice 5-6 ounces (about 1/2 can) of regular soda such as Coke or Pepsi ? 7-8 gummy or regular Life Savers ? 1 Tbsp. of sugar or jelly NOTE: If your blood sugar is less than 50, double the portion above for a total of 30 gm. ?Carbohydrate. ? Follow meal plan of 45-60 g of consistent carbohydrates at 3 meals each day and 15 g of carbohydrate at 1-2 snacks each day. Coding Level of Care Code Est Pt Level 4 (11593) Diagnoses Uncontrolled type 2 diabetes mellitus with hyperglycemia E11.65 Diabetes mellitus type: type 2 Long-term insulin use Z79.4 Mixed hyperlipidemia E78.2 Hyperlipidemia type: mixed hyperlipidemia Primary hypertension I10 Hypertension type: primary hypertension Stage 3b chronic kidney disease N18.32 Chronic kidney disease stage 3 subtype: stage 3b (GFR 30-44) CPT Codes Details - CPT: 44398 - Glucose monitoring, continuous-physician I&R ([id number]) Time Spent (min) 30
[2025-06-02 08:25] LABS: Glucose, Whole Blood 208 mg/dL (60-115)
== END 2025-06-02 09:01 | disposition home or self-care (01) ==
LOC: HO.ENCR 08:10
PROVIDERS: PCP Internal Medicine; Visit Provider Student in an Organized Health Care Education/Training Program
DX: E11.65 Type 2 diabetes mellitus with hyperglycemia (principal); Z79.4 Long term (current) use of insulin; E78.2 Mixed hyperlipidemia; I10 Essential (primary) hypertension; N18.32 Chronic kidney disease, stage 3b
CPT/HCPCS: 95251; 99214

== ENCOUNTER → 2025-06-02 08:09 | Outpatient (BNVA) | payer MEDICARE, OTHER, SELFPAY | PROVIDERS: PCP Internal Medicine; Visit Provider Student in an Organized Health Care Education/Training Program | DX: E11.65 Type 2 diabetes mellitus with hyperglycemia (principal); E11.22 Type 2 diabetes mellitus with diabetic chronic kidney disease; I12.9 Hypertensive chronic kidney disease with stage 1 through stage 4 chronic kidney disease, or unspecified chronic kidney disease; N18.32 Chronic kidney disease, stage 3b; E78.2 Mixed hyperlipidemia; Z79.4 Long term (current) use of insulin | CPT/HCPCS: 82947; 99212 ==

== ENCOUNTER 2025-06-09 09:59 | Outpatient (AMB) | payer MEDICARE, OTHER, SELFPAY ==
[2025-06-09 10:45] VITALS: BMI 24.8
--- NOTE | 2025-06-09 10:48 | MHC.AMNUTRGE ---
VS Expanded 06/09/25 10:45 Height 5 ft 10 in Weight 173 lb 2 oz BMI 24.8 Intake Visit Reasons: Type 2 diabetes mellitus with hyperglycemia Action Allergies No Known Allergies Allergy (Verified 06/02/25 08:19) Nutrition Presentation Details: Pt presents for MNT for T2DM Pt presents with to this appt Pt hx: difficulties with speech secondary to stroke Pt wants to discuss hypoglycemia and also how to prevent high fluctuation in BG after breakfast. Pt and have questions regarding hypoglycemia, Pt reports having glucose sensor alarm going off at night time with hypoglycemia , bg at 68, which he treated by having bowl of cereal leading to fasting bg >150 mg/dl Per gluc sensor Pt having bg >180 after breakfast , typical breakfast is corn cereal with milk BS Monitoring Most Recent Diabetes Results: Microalb/Creat Ratio, (<30) 208.5 ug/mg cr H 05/14/25 WSK-Brwyjty-Ck.Jeor Equation Height: 5 ft 10 in Weight: 173 lb Resting Metabolic Rate: 1531.18 Calculated Activity Level: Mild Activity Calories Needed to Maintain Weight: 2105.37 Diagnosis Nutrition problem #1: food nutri know defi As related to (etiology) #1: diagnosis As evidenced by (sign/symptom) #1: knowledge deficit of diet [facility] Medical History (Updated 04/24/25 @ 16:47 by WILLA Simeon) CKD (chronic kidney disease) stage 3, GFR 30-59 ml/min Long-term insulin use CVA (cerebral vascular accident) Uncontrolled diabetes mellitus with hyperglycemia Insulin dependent type 2 diabetes mellitus HLD (hyperlipidemia) Word finding difficulty Hypertension Social History Housing: House Alcohol intake: never Patient Tobacco Use Status: Former Tobacco user Second Hand Smoke Exposure: No service: No Assessment & Plan Assessment & Plan (1) Uncontrolled diabetes mellitus with hyperglycemia: Code(s): E11.65 - Type 2 diabetes mellitus with hyperglycemia Category: Medical Qualifiers: Diabetes mellitus type: type 2 Qualified Code(s): E11.65 - Type 2 diabetes mellitus with hyperglycemia Plan: Wt: 79 Kg ( 06/12 ) Est kcal needs as per MSJ: 2100 +500 (40% carb, 30% protein/fat) Est fluid needs as per 25-30 ml/d: 2400 Est prot per day as per 1 g/kg bw: 80 Recommend fiber intake : 8-10 g per day and gradually increase to 25-28 g per day for women and 35-38 g for men or as tolerated Recommend sodium intake per day : less than 2300 mg Educated patient on: ( R = reviewed V = verbalizes understanding N/R = needs review N/A = not applicable Confirm hypoglycemia (low blood sugar) by finger stick : follow rule of 15 if developing hypoglycemia (1/2 cup of juice or 3-4 glucose tablets, recheck blood sugar 15 minutes after and repeat treatment if blood sugar continue below 70) communicate with your doctor any hypoglycemia events for further assessment HAve a bedtime snack consisting of 15 g carb and 1 oz lean protein (4 crackers with peanut butter or cup of milk/yogurt or fruit with 1 slice of cheese Vary your breakfast and see which one helps the most with your blood sugars: consider oatmeal with milk, blueberries and add a tablespoon of peanut butter or have an egg sandwich on whole grain bread and a cup of milk Coding Level of Care Code Nutr Indiv Intake (40159) Diagnoses Uncontrolled type 2 diabetes mellitus with hyperglycemia E11.65 Diabetes mellitus type: type 2 Time Spent (min) 30
--- OUTSIDE RECORDS SUMMARY | 2025-06-09 10:53 | XMS_ITS | Clinical Summary ---
Author Organization [facility] Address [address] [place] [phone] Phone Care Team Providers Care Edge Banding Machine Offbearer Name Role Phone Rony Messer MD Primary Care Provid er Allergies No known active allergies Medications clopidogrel (PLAVIX) 75 mg tablet Take 75 mg by mouth daily. 04/14/2025 Active rosuvastatin (CRESTOR) 40 MG tablet Take 40 mg by mouth daily. 04/14/2025 Active insulin pen needles, disposable, 32 gauge x 5/32 Ndle Inject 1 each as directed every morning. 04/14/2025 Active aspirin 81 MG EC tablet Take 81 mg by mouth daily. 04/14/2025 Active insulin glargine (LANTUS) 100 unit/mL injection vial Inject 16 Units under the skin daily. before noon 04/14/2025 Active amLODIPine (NORVASC) 10 MG tablet Take 10 mg by mouth daily. 04/22/2025 Active metFORMIN (GLUCOPHAGE-XR) 500 MG 24 hr tablet Take 500 mg by mouth daily with breakfast. 04/22/2025 Active levETIRAcetam (KEPPRA) 750 MG IMMEDIATE release tablet Take 750 mg by mouth 2 (two) times a day. 05/06/2018 Active Encounters Date Type Department Care Team Description 05/20/2025 11:15 AM EDT Home Care Visit [facility] [address] [place] [phone] Urvashi Gaxiola CCC-BIOMEDICAL ANALYTICAL SCIENTIST BIOMEDICAL ANALYTICAL SCIENTIST OASIS DISCHARGE VISIT 05/19/2025 2:30 PM EDT Home Care Visit [facility] [address] [place] [address] Urvashi Gaxiola CCC-BIOMEDICAL ANALYTICAL SCIENTIST BIOMEDICAL ANALYTICAL SCIENTIST HOME VISIT 05/15/2025 2:00 PM EDT Home Care Visit [facility] [address], [place] [phone] Jennifer Hatfield, PT PT DISCIPLINE DISCHARGE VISIT 05/14/2025 1:15 PM EDT Home Care Visit [facility] [address], [place] [phone] Urvashi Gaxiola, CCC-BIOMEDICAL ANALYTICAL SCIENTIST BIOMEDICAL ANALYTICAL SCIENTIST HOME VISIT 05/12/2025 10:15 AM EDT Home Care Visit [facility] [address] [place] [address] Urvashi Gaxiola CCC-BIOMEDICAL ANALYTICAL SCIENTIST BIOMEDICAL ANALYTICAL SCIENTIST HOME VISIT 05/06/2025 2:30 PM EDT Home Care Visit [facility] [address] [place] [address] Urvashi Gaxiola, DANNI-BIOMEDICAL ANALYTICAL SCIENTIST BIOMEDICAL ANALYTICAL SCIENTIST EVALUATION 05/04/2025 12:30 PM EDT Home Care Visit [facility] [address] [place] [address] Jennifer Hatfield, PT PT HOME VISIT 05/01/2025 1:00 PM EDT Home Care Visit [facility] [address] [place] [address] Jennifer Hatfield, PT PT HOME VISIT 05/01/2025 Home Care Visit [facility] [address], [place] [phone] Urvashi Gaxiola CCC-BIOMEDICAL ANALYTICAL SCIENTIST TELEPHONE ENCOUNTER 04/30/2025 12:30 PM EDT Home Care Visit [facility] [address], [place] [phone] Amadou Golden, OT OT DISCIPLINE DISCHARGE VISIT 04/30/2025 Home Care Visit [facility] [address], [place] [phone] Elizabeth Story, PT TELEPHONE ENCOUNTER 04/28/2025 Episode Documentatio n Update [facility] [address] [place] [address] Angle Radhasotero [place] 04/27/2025 1:00 PM EDT Home Care Visit [facility] [address] [place] [address] Jennifer Hatfield, PT PT HOME VISIT 04/27/2025 9:00 AM EDT Home Care Visit [facility] [address] [place] [address] Amadou Golden, OT OT HOME VISIT 04/24/2025 12:00 PM EDT Home Care Visit [facility] [address] [place] [address] Jennifer Hatfield, PT PT HOME VISIT 04/23/2025 12:30 PM EDT Home Care Visit [facility] [address] [place] [address] Amadou Golden, OT OT HOME VISIT 04/22/2025 12:00 PM EDT Home Care Visit [facility] [address] [place] [address] Jennifer Hatfield, PT PT HOME VISIT 04/22/2025 10:00 AM EDT Home Care Visit [facility] [address] [place] [address] Amadou Golden, OT OT HOME VISIT 04/17/2025 1:00 PM EDT Home Care Visit [facility] [address] [place] [address] Jennifer Hatfield, PT PT HOME VISIT 04/17/2025 Home Care Visit [facility] [address], [place] [phone] Jennifer Hatfield, PT TELEPHONE ENCOUNTER 04/16/2025 1:00 AM EDT Home Care Visit [facility] [address] [place] [phone] Amadou Golden, OT OT EVALUATION 04/15/2025 1:30 AM EDT Home Care Visit [facility] [address] [place] [phone] Franny Rivera, RN SN EVALUATION 04/14/2025 10:30 AM EDT Home Care Visit [facility] [address] [place] [phone] Jennifer Hatfield, PT PT OASIS START OF CARE (SOC) 04/14/2025 Plan of Care Documentation [facility] [address] [place] [phone] 04/12/2025 Orders Only [facility] [address] [place] [phone] Homehealth, Interface ProviderMD from Last 3 Months Social History Tobacco Use Types Packs/Day Years Used Date Smoking Tobacco: Never Assessed Home Health Assessment: Transportation Answer Date Recorded Lack of Transportation (Medical) No 05/20/2025 Lack of Transportation (Non-Medical) No 05/20/2025 Patient Unable or Declines to Respond No 05/20/2025 Education Answer Date Recorded Are you interested in more education? Not on clayton e 04/12/2025 Are you concerned about learning? Not on file 04/12/2025 No 04/12/2025 No 04/12/2025 Digital Access Answer Date Recorded No 04/12/2025 No 04/12/2025 Reliable internet access at home? Not on file 04/12/2025 Device with a working camera? Not on file Sex and Gender Information Value Date Recorded Sex Assigned at Not on file Legal Sex Male 9:48 AM EDT Gender Identity Not on file Sexual Orientation Not on file Last Filed Vital Signs Vital Sign Reading Time Taken Comments Blood Pressure 138/72 05/20/2025 11:25 AM EDT Pulse 82 05/20/2025 11:25 AM EDT Temperature 36.4 C (97.5 F) 05/20/2025 11:25 AM EDT Respiratory Rate 16 05/04/2025 1:15 AM EDT Oxygen Saturation 99% 05/20/2025 11:25 AM EDT Inhaled Oxygen Concentration - - Weight - - Height - - Body Mass Index - - Plan of Treatment Not on file Medical Devices Not on file Insurance MEDICARE PART A & B MEDICARE SUPPLEMENT MEDICARE PART A & B Member Subscriber Plan / Payer (Ef fective 2014-Present) Name:Lucas Acosta Member ID:[id number] Relation to Subscriber:Self Name:Lucas Acosta Subscriber ID:[id number] Payer ID:[id number] Group ID:Not on file Type:Medicare Address: [address] [address] MEDICARE SUPPLEMENT MEDICARE PART A & B Member Subscriber Plan / Payer (Ef fective 2014-) Name:Lucas Acosta Member ID:[id number] Relation to Subscriber:Self Name:Lucas Acosta Subscriber ID:[id number] Payer ID:[id number] Group ID:Not on file Type:Medicare Address: [place] [place] [id number] [facility] MEDICARE SUPPLEMENT MEDICARE PART A & B [facility] MEDICARE SUPPLEMENT MEDICARE PART A & B [place] MEDICARE SUPPLEMENT MEDICARE PART A & B [facility] MEDICARE SUPPLEMENT Care Teams Edge Banding Machine Offbearer Relationship Specialty Start Date End Date Rony Messer MD [address] [place] [phone] PCP - General Internal Medicine 04/12/25 Additional Source Comments The information contained in this document represents components of the legal health record. It is not the complete legal health record.[facility]
[2025-06-09 22:00] VITALS: BMI 24.8
== END 2025-06-09 10:51 | disposition home or self-care (01) ==
LOC: HO.ENCR 09:59
PROVIDERS: PCP Internal Medicine; Visit Provider Dietitian, Registered
DX: E11.65 Type 2 diabetes mellitus with hyperglycemia (principal)

== ENCOUNTER → 2025-06-09 09:59 | Outpatient (BNVA) | payer MEDICARE, OTHER, SELFPAY | PROVIDERS: PCP Internal Medicine; Visit Provider Dietitian, Registered | DX: E11.65 Type 2 diabetes mellitus with hyperglycemia (principal); Z71.3 Dietary counseling and surveillance | CPT/HCPCS: 97802 ==

== ENCOUNTER 2025-08-05 08:27 | Outpatient (AMB) | payer MEDICARE, OTHER, SELFPAY ==
--- NOTE | 2025-08-05 08:31 | MHC.PC.OV ---
Vital Signs 08/05/25 08:39 08/05/25 09:03 Height 5 ft 10 in Weight 77.564 kg BMI 24.5 BP 152/64 H 124/70 Respiration 16 Pulse 80 Pulse Source Pulse Oximeter Temp 97.7 F Temp Source Temporal Artery Scan Pulse Oximetry (%) 98 Oxygen Delivery Method Room Air Intake Visit Reasons: 3 Month F/U - see comments Filtration Supervisor Required: No Accompanied by: Spouse Allergies No Known Allergies Allergy (Verified 08/05/25 08:32) Medication List - Last Reconciled 08/05/25 by WILLA Simeon amlodipine 10 mg PO DAILY ammonium lactate 12% appl topical BID aspirin 81 mg PO DAILY blood sugar diagnostic (FreeStyle Lite Strips) As directed to check blood sugars three times a day blood sugar diagnostic (FreeStyle Test strips) As directed to check blood sugars three times a day blood-glucose meter (FreeStyle Lite Meter kit) As directed to check blood sugars 3 times a day blood-glucose sensor (FreeStyle Jose Daniel 3 Plus Sensor device) As directed every 14 days blood-glucose,correctional security officer,cont (FreeStyle Jose Daniel 3 [place]) As directed clopidogrel (Plavix) 75 mg PO DAILY insulin glargine (Basaglar KwikPen U-100 Insulin) 16 units subcut DAILY levetiracetam 750 mg PO BID metformin ER 500 mg PO DAILY pen needle, diabetic USE DIRECTED rosuvastatin (Crestor) 40 mg PO DAILY HPI HPI Comments History of Present Illness Details 74-year-old male with history of CKD stage 3, type 2 diabetes, hyperlipidemia, hypertension, carotid stenosis, history of CVA with persistent expressive aphasia, and recent CVA presents to the office today accompanied by his for management of chronic conditions. T2D- prescribed ozempic but did not take this due to concerns about side effects including weight loss and possible pancreatitis. Following with Dr. Davis in endo. Wearing CGM. Reviewed timbo, in range 91% of time with average glucose 146. Reporting a lot of alarms in the middle of the night with hypo and hyperglycemia which wakes him. Does also check glucose levels with manual meter and reports glucose levels can sometimes be off by 20. He has been begrudgingly working on diabetic diet. Following with dietitian. Due for A1c. On 16 units Basaglar, metformin 500 mg ER daily. HTN- initial bp 152/64, recheck 124/70. Compliant with amlodipine 10 mg daily HLD/history CVA/seizure disorder/carotid stenosis-on rosuvastatin 40 mg daily and dual antiplatelet therapy. No recent seizure activity, per patient last seizure 8 months ago. Does still have some expressive aphasia. Was referred to Neurology, but he did cancel appointment. CKD stage 3-last GFR 34, creatinine 1.92 Concerns: None ROS: General: No fevers, malaise, unintentional weight loss HEENT: No blurred vision, diplopia. No sore throat, nasal congestion, rhinorrhea, sinus pain, ear pain Cardiovascular: No chest pain, palpitations, or leg edema Respiratory: No shortness of breath, wheezing, cough GI: No abdominal pain, nausea, vomiting, diarrhea, constipation, melena, hematochezia : No dysuria, hematuria, increased urinary frequency, decreased urinary output MSK: No myalgia, back pain Neuro: No headaches, weakness, paresthesias Skin: No rashes or lesions EXAM: Constitutional - Awake and Alert, No apparent distress Eyes - PERRL Cardiovascular - S1S2, RRR, No edema Respiratory - Normal lung expansion, Normal respiratory effort, No respiratory distress, CTA bilaterally Extremities - no calf tenderness bilaterally, no swelling Skin - Warm/Dry Neurological - Alert & oriented x3 Psychological - Appropriate affect [facility] Medical History (Updated 08/05/25 @ 09:11 by WILLA Simeon) Type 2 diabetes with nephropathy Seizure CKD (chronic kidney disease) stage 3, GFR 30-59 ml/min Long-term insulin use CVA (cerebral vascular accident) Uncontrolled diabetes mellitus with hyperglycemia Insulin dependent type 2 diabetes mellitus HLD (hyperlipidemia) Word finding difficulty Hypertension Social History Housing: House Alcohol intake: never Patient Tobacco Use Status: Former Tobacco user Second Hand Smoke Exposure: No service: No Questionnaire Thrive Questionnaire Date Thrive assessed: 04/21/25 JULIA-7 AMB Questionnaire JULIA-7 Date JULIA - 7 assessed: 04/21/25 Source: Developed by Drs. Arben Stafford, Kyung Perla, Ja Delarosa and colleagues, with an educational gilma from [employer]. Physical exam (Primary Care) Vital Signs: Last Vital Signs Temp 97.7 F 08/05/25 08:39 Pulse 80 08/05/25 08:39 Resp 16 08/05/25 08:39 BP 152/64 H 08/05/25 08:39 Pulse Ox 98 08/05/25 08:39 Oxygen Delivery Method Room Air 08/05/25 08:39 BMI result Body Mass Index 24.5 Tobacco/Smoking Status: Tobacco use Status Patient Tobacco Use Status Former Tobacco user 08/05/25 08:32 Thrive Assessment: Date of Thrive Assessment Date Thrive assessed 04/21/25 08/05/25 08:32 Coding Level of Care Code Est Pt Level 4 (52487) Complex EM visit Add On G2211 Diagnoses Primary hypertension I10 Hypertension type: primary hypertension Type 2 diabetes with nephropathy E11.21 Mixed hyperlipidemia E78.2 Hyperlipidemia type: mixed hyperlipidemia Expressive aphasia R47.01 Seizure R56.9 Assessment & Plan Assessment & Plan (1) Hypertension: Code(s): I10 - Essential (primary) hypertension Category: Medical Qualifiers: Hypertension type: primary hypertension Qualified Code(s): I10 - Essential (primary) hypertension Plan: Controlled on recheck. Continue amlodipine 10 mg daily. Low-sodium diet (2) Type 2 diabetes with nephropathy: Code(s): E11.21 - Type 2 diabetes mellitus with diabetic nephropathy Category: Medical Plan: Hemoglobin A1c ordered as well as BMP to evaluate renal function. Continue following with dietitian as well as Dr. Krause in endocrinology. Continue Basaglar and metformin as ordered. Reviewed CGM, glucose levels apear to be within range, unclear why alarms are going off. Follow up with endo. Recommend annual eye exams and foot exams (3) HLD (hyperlipidemia): Code(s): E78.5 - Hyperlipidemia, unspecified Category: Medical Qualifiers: Hyperlipidemia type: mixed hyperlipidemia Qualified Code(s): E78.2 - Mixed hyperlipidemia Plan: Lipid panel ordered. Continue rosuvastatin (4) Expressive aphasia: Code(s): R47.01 - Aphasia Category: Medical Plan: Following CVA 4 months ago. Again referred to Neurology. Continue aspirin/Plavix as well as Crestor. Continue working to improve type 2 diabetes. (5) Seizure: Code(s): R56.9 - Unspecified convulsions Category: Medical Plan: Stable. No recent seizures reported. He is referred to Neurology due to above. Continue Keppra Plan Follow-up in the office in 3 months. We will await results of labs as ordered. Orders: Referrals Neurology Referral E11.21 - Type 2 diabetes mellitus with diabetic nephropathy, I10 - Essential (primary) hypertension, R47.01 - Aphasia, R56.9 - Unspecified convulsions
[2025-08-05 08:39] VITALS: BP 152/64; PULSE 80; RESP 16; TEMP 36.5; O2SAT 98; BMI 24.5
[2025-08-05 09:03] VITALS: BP 124/70
== END 2025-08-05 09:11 | disposition home or self-care (01) ==
LOC: HO.HMCHD 08:28
PROVIDERS: PCP Physician Assistant; Visit Provider Physician Assistant
DX: I10 Essential (primary) hypertension (principal); E11.21 Type 2 diabetes mellitus with diabetic nephropathy; E78.2 Mixed hyperlipidemia; R47.01 Aphasia; R56.9 Unspecified convulsions

== ENCOUNTER → 2025-08-05 08:27 | Outpatient (BNVA) | payer MEDICARE, OTHER, SELFPAY | PROVIDERS: PCP Internal Medicine; Visit Provider Physician Assistant | DX: E11.65 Type 2 diabetes mellitus with hyperglycemia (principal); N18.30 Chronic kidney disease, stage 3 unspecified; E11.9 Type 2 diabetes mellitus without complications; I10 Essential (primary) hypertension; E11.21 Type 2 diabetes mellitus with diabetic nephropathy; E78.2 Mixed hyperlipidemia; R74.01 Elevation of levels of liver transaminase levels; R56.9 Unspecified convulsions | CPT/HCPCS: 97803; 99212 ==

== ENCOUNTER 2025-08-05 10:48 | Outpatient (AMB) | payer MEDICARE, OTHER, SELFPAY ==
[2025-08-05 11:12] VITALS: BMI 24.5
--- NOTE | 2025-08-05 11:12 | A.OFFVIS_ITS ---
VS Expanded 08/05/25 11:12 Height 5 ft 10 in Weight 171 lb BMI 24.5 Intake Visit Reasons: T2DM Allergies No Known Allergies Allergy (Verified 08/05/25 08:32) Nutrition Presentation Details: Pt presents for MNT f/u for T2DM physical activity - walking , will try mario chi exercises in the future Reports feeling better, no GI complains and he is comfortable at current weight , not losing further weight. Getting used to the food portion sizes , but overall feeling well. reprots having bedtime snack to prevent nocturnal hypoglycemia and since including bedtime snack he is doing better. BS Monitoring Most Recent Diabetes Results: Creatinine, (0.5-1.4) 1.74 mg/dL H 08/07/25 BUN, (9-16) 32 mg/dL H 08/07/25 Sodium, (135-145) 141 mmol/L 08/07/25 Potassium, (3.3-5.1) 5.0 mmol/L 08/07/25 Chloride, (96-108) 108 mmol/L 08/07/25 Carbon Dioxide, (22-29) 27 mmol/L 08/07/25 Calcium, (8.4-10.2) 9.6 mg/dL 08/07/25 [facility] Medical History (Updated 08/05/25 @ 09:11 by WILLA Simeon) Type 2 diabetes with nephropathy Seizure CKD (chronic kidney disease) stage 3, GFR 30-59 ml/min Long-term insulin use CVA (cerebral vascular accident) Uncontrolled diabetes mellitus with hyperglycemia Insulin dependent type 2 diabetes mellitus HLD (hyperlipidemia) Word finding difficulty Hypertension Social History Housing: House Alcohol intake: never Patient Tobacco Use Status: Former Tobacco user Second Hand Smoke Exposure: No service: No Assessment & Plan Assessment & Plan (1) Uncontrolled diabetes mellitus with hyperglycemia: Code(s): E11.65 - Type 2 diabetes mellitus with hyperglycemia Category: Medical Qualifiers: Diabetes mellitus type: type 2 Qualified Code(s): E11.65 - Type 2 diabetes mellitus with hyperglycemia Plan: Wt: 79 Kg ( 06/12 ),78kg(08/13) Est kcal needs as per MSJ: 2100 +500 (40% carb, 30% protein/fat) Est fluid needs as per 25-30 ml/d: 2400 Est prot per day as per 1 g/kg bw: 80 Recommend fiber intake : 8-10 g per day and gradually increase to 25-28 g per day for women and 35-38 g for men or as tolerated Recommend sodium intake per day : less than 2300 mg Educated patient on: ( R = reviewed V = verbalizes understanding N/R = needs review N/A = not applicable * Continue having a bedtime snack consisting of 15 g carb and 1 oz lean protein (4 crackers with peanut butter or cup of milk/yogurt or fruit with 1 slice of cheese * Continue working on varying your meals with a combination of complex carbs and lean protein, 60--100 g carb per meal , including a cup of milk * iNclude omega 3 fatty acids (peanut butter, seeds, nuts algae Coding Level of Care Code Nutr Indiv Subseq (11192) Diagnoses Uncontrolled type 2 diabetes mellitus with hyperglycemia E11.65 Diabetes mellitus type: type 2 Time Spent (min) 30
--- OUTSIDE RECORDS SUMMARY | 2025-08-05 13:47 | XMS_ITS | Clinical Summary ---
Author Organization [facility] Address [address] [place] [id number] Phone Care Team Providers Care [facility] Name Role Phone Rony Messer MD Primary [...] Visit [facility] [address] [place] [address] Urvashi Gaxiola CCC-FIELD EDUCATION COORDINATOR FIELD EDUCATION COORDINATOR OASIS DISCHARGE VISIT 05/19/2025 2:30 PM EDT Home Care Visit [facility] [address] [place] [address] Urvashi Gaxiola CCC-FIELD EDUCATION COORDINATOR FIELD EDUCATION COORDINATOR HOME VISIT 05/15/2025 2:00 PM EDT Home Care Visit [facility] [address] [place] [address] Jennifer Hatfield, PT PT DISCIPLINE DISCHARGE VISIT 05/14/2025 1:15 PM EDT Home Care Visit [facility] [address] [place] [address] Urvashi Gaxiola CCC-FIELD EDUCATION COORDINATOR FIELD EDUCATION COORDINATOR HOME VISIT 05/12/2025 10:15 AM EDT Home Care Visit [facility] [address] [place] [address] Urvashi Gaxiola CCC-FIELD EDUCATION COORDINATOR FIELD EDUCATION COORDINATOR HOME VISIT 05/06/2025 2:30 PM EDT Home Care Visit [facility] [address] [place] [address] Urvashi Gaxiola CCC-FIELD EDUCATION COORDINATOR FIELD EDUCATION COORDINATOR EVALUATION from Last 3 Months Social History Tobacco [...] file Insurance MEDICARE PART A & B [facility] MEDICARE SUPPLEMENT MEDICARE PART A & B [facility] MEDICARE SUPPLEMENT MEDICARE PART A & B [facility] MEDICARE SUPPLEMENT MEDICARE PART A & B [facility] MEDICARE SUPPLEMENT MEDICARE PART A & B [facility] MEDICARE SUPPLEMENT MEDICARE PART A & B [facility] MEDICARE SUPPLEMENT Care Teams Center Maker Hand Relationship Specialty Start Date End Date Rony Messer MD [address] [place] [id number] PCP - General Internal Medicine 04/12/25 Additional Source Comments The information contained in this document represents components of the legal health record. It is not the complete legal health record.[facility]
== END 2025-08-05 12:21 | disposition home or self-care (01) ==
LOC: HO.ENCR 10:49
PROVIDERS: PCP Internal Medicine; Visit Provider Dietitian, Registered
DX: E11.65 Type 2 diabetes mellitus with hyperglycemia (principal)

== ENCOUNTER 2025-08-07 10:20 | Outpatient (REF) | payer MEDICARE, OTHER, SELFPAY ==
[2025-08-07 12:31] LABS: Hemoglobin A1C 190.3334 umol/L; Total Hemoglobin (HGBA1C) 3720.1250 umol/L
[2025-08-07 12:33] LABS: Anion Gap 11 (12-20); Blood Urea Nitrogen 32 mg/dL (9-16); Calcium 9.6 mg/dL (8.4-10.2); Carbon Dioxide 27 mmol/L (22-29); Chloride 108 mmol/L (96-108); Estimated Glomerular Filt Rate 38; Potassium 5.0 mmol/L (3.3-5.1); Sodium 141 mmol/L (135-145)
[2025-08-07 12:56] LABS: Vitamin B12 528 pg/mL (200-900)
== END 2025-08-07 10:21 | disposition home or self-care (01) ==
LOC: HO.10HDL 10:20
PROVIDERS: Visit Provider Physician Assistant
DX: E11.65 Type 2 diabetes mellitus with hyperglycemia (principal); E78.2 Mixed hyperlipidemia; I12.9 Hypertensive chronic kidney disease with stage 1 through stage 4 chronic kidney disease, or unspecified chronic kidney disease; E11.22 Type 2 diabetes mellitus with diabetic chronic kidney disease; N18.32 Chronic kidney disease, stage 3b; Z79.4 Long term (current) use of insulin; I63.9 Cerebral infarction, unspecified; R47.89 Other speech disturbances
CPT/HCPCS: 36415; 80048; 82607; 82947; 83036; 99212

== ENCOUNTER 2025-08-07 11:16 | Outpatient (AMB) | payer MEDICARE, OTHER, SELFPAY ==
[2025-08-07 11:24] VITALS: BP 140/66; PULSE 94; O2SAT 97; BMI 24.4
--- NOTE | 2025-08-07 11:24 | A.OFFVIS_ITS ---
Vital Signs 3 08/07/25 11:24 Height 5 ft 10 in Weight 169 lb 15.622 oz BMI 24.4 BP 140/66 H Blood Pressure Location Rt brachial Position Sitting Pulse 94 Pulse Source Pulse Oximeter Pulse Oximetry (%) 97 Oxygen Delivery Method Room Air Intake Visit Reasons: T2DM Intake Note: Patient present today for Type 2 Diabetes Mellitus Last Diabetic eye exam: 07/2025 Last Podiatry Visit: 07/2025 Random Glucose: 147 mg/dl HgA1C: 6.9% Seat Coverer Required: No Accompanied by: Spouse Allergies No Known Allergies Allergy (Verified 08/05/25 08:32) Medication List - Last Reconciled 08/07/25 by Radha Krause MD amlodipine 10 mg PO DAILY ammonium lactate 12% appl topical BID aspirin 81 mg PO DAILY blood sugar diagnostic (FreeStyle Lite Strips) As directed to check blood sugars three times a day blood sugar diagnostic (FreeStyle Test strips) As directed to check blood sugars three times a day blood-glucose meter (FreeStyle Lite Meter kit) As directed to check blood sugars 3 times a day blood-glucose sensor (FreeStyle Jose Daniel 3 Plus Sensor device) As directed every 14 days blood-glucose,peanut sorter,cont (FreeStyle Jose Daniel 3 [place]) As directed clopidogrel (Plavix) 75 mg PO DAILY insulin glargine (Basaglar KwikPen U-100 Insulin) 16 units subcut DAILY levetiracetam 750 mg PO BID metformin ER 500 mg PO DAILY pen needle, diabetic USE DIRECTED rosuvastatin (Crestor) 40 mg PO DAILY HPI Comments Details: 74-year-old male coming in today for follow up of type 2 diabetes mellitus. Otherwise medical history significant for CVA, hypertension, hyperlipidemia. Here today with Maru , significant other . Last seen May 2025 History of diabetes Diagnosed in 60s. Diagnosed about 9 years ago, when he was hospitalized with stroke and found to be hyperglycemic Was previously managed by PCP Dr. Brown, didnt have endo before Prior therapy: No other meds tried Has been on insulin since diagnosis Current regimen: Basagalar 16 units daily at 11 AM Metformin ER 500 mg daily He picked up Ozempic , but hast started it , last visit we had discussed starting Ozempic but he is apprehensive of the side effects. -start Ozempic 0.25 mg weekly for 4 weeks and then go up to 0.5 mg weekly -continue metformin 500 mg daily -reduce Basaglar to 14 units daily once you start Ozempic Denies any symptoms of hyperglycemia including polyphagia, polyuria, polydipsia. Denies any hypoglycemic symptoms. A1c 04/10/2025 10.5% POC 08/07/2025 A1c 6.9% Freestyle Jose Daniel downloaded from July 25 to 08/07/2025 Time CGM active 90% Average glucose 144 mg/dL G TX 6.8% Glucose variability 21.5% Within target range 88% High 12% Very high 0% Low 0% Very low 0% Interpretation: Blood sugars much improved, he does have some highs between 09:00 to 15:00.. No hypoglycemia. Vaccines: never gets the flu vaccine , got one half of a covid vaccine during pandemic, never got pneumococcal vaccine Complications Eye exam: Last eye exam 07/30/25 , doesnt know if history of retinopathy, Last Podiatry Visit: 07/2025 Neuropathy: does have symptoms of numbness tingling but not too bothersome, Kidney disease: CKD stage IIIB, 04/12/2025 GFR 34, never seen regional marketing manager, urine microalbumin elevated at 208.5 from 05/14/2025. Macrovascular complications: CVA X 2, most recently in March 2025 was found to have a acute/subacute ICA infarct Statin: Rosuvastatin 40 mg daily, LDL 36 from 04/10/2025 JORGE/ARB: none Exercise: no Diet control: Breakfast 8 AM: coffee , cereal with milk Snack at 11 AM: atkins protein bar Lunch noon : canned soup or canned stew, or sandwich with fruits Supper He has never had any hospitalizations for hyperglycemia/hypoglycemia. Physical exam General: sitting comfortably in no acute distress HEENT: normocephalic/atraumatic, Neck: supple, symmetrical Cardiac: normal heart sounds Pulm: normal breath sounds B/L, no added breath sounds Abd: not distended, no tenderness Extremities: Mild bilateral pedal edema Foot exam: done 04/23/25 intact sensation to monofilament, intact pulses, , well- perfused, however very poor foot care, elongated nails, Laboratory Tests 04/10/25 04/12/25 12:02 07:21 Sodium 137 138 Potassium 5.0 4.6 BUN 32 H Creatinine 1.97 H 1.92 H Estim Creat Clear Calc 33.4 34.3 Estimated GFR 34 Random Glucose 451 H* 177 H Estimat Average Glucose 255 Hemoglobin A1c % 10.5 H Triglycerides 61 Cholesterol 80 LDL Cholesterol, Calc 36 HDL Cholesterol 32 L Laboratory Tests 05/14/25 08:00 Urine Creatinine 70.49 Urine Microalbumin 147.0 Microalb/Creat Ratio 208.5 H PFSH Medical History (Updated 08/05/25 @ 09:11 by WILLA Simeon) Type 2 diabetes with nephropathy Seizure CKD (chronic kidney disease) stage 3, GFR 30-59 ml/min Long-term insulin use CVA (cerebral vascular accident) Uncontrolled diabetes mellitus with hyperglycemia Insulin dependent type 2 diabetes mellitus HLD (hyperlipidemia) Word finding difficulty Hypertension Social History Housing: House Alcohol intake: never Patient Tobacco Use Status: Former Tobacco user Second Hand Smoke Exposure: No service: No Physical Exam Vital Signs: Last Vital Signs Pulse 94 08/07/25 11:24 BP 140/66 H 08/07/25 11:24 Pulse Ox 97 08/07/25 11:24 Oxygen Delivery Method Room Air 08/07/25 11:24 BMI result Body Mass Index 24.4 Office Procedures Glucose Monitoring Details Details: See HPI 42427 - Glucose monitoring, continuous-physician I&R Procedure code (CPT) selection complete Results AMB Hemoglobin A1c 2 AMB Hemoglobin A1c 6.9 % Last Edit by AMERICA Mcelroy on 08/07/25 11:43 Results Reviewed Results Reviewed: Laboratory Last Values Glucose (Clinic) 147 mg/dL (60-115) H 08/07/25 11:32 Hgb A1c (Clinic) 6.9 % (4.0-6.0) H 08/07/25 11:36 Assessment & Plan Assessment & Plan (1) Uncontrolled diabetes mellitus with hyperglycemia: Code(s): E11.65 - Type 2 diabetes mellitus with hyperglycemia Category: Medical Qualifiers: Diabetes mellitus type: type 2 Qualified Code(s): E11.65 - Type 2 diabetes mellitus with hyperglycemia Plan: 74-year-old male coming in today for fup of type 2 diabetes mellitus with long- term insulin use with complications of neuropathy, CKD stage 3, CVA, most recent A1c down to 6.9% POC 08/07/2025 down from March 2025 elevated at 10.5% when he was recently hospitalized in March 2025 for stroke. He does have some expressive aphasia but it is improving. Given history of stroke, he would be an excellent candidate for a GLP 1 agonist as that besides controlling hyperglycemia also reduces the chances of further stroke. He has high ASCVD risk score of 41.3%. I did send him a prescription for Ozempic last visit, apparently they picked it up but never started taking it. I am going to put in the prescription again as it has disappeared from his chart. Apparently some other person discontinued it when they side he was not taking it. Last visit we had discussed starting Ozempic, patient was apprehensive about weight loss and did down started. Again this visit we discussed that Ozempic we will not only help with a his diabetes but we will also help his reduce his cardiovascular comorbidity. Plan: -start Ozempic 0.25 mg weekly for 4 weeks and then go up to 0.5 mg weekly -continue metformin 500 mg daily -reduce Basaglar to 14 units daily once you start Ozempic -follow up with the educator -see the teller vault -urine microalbumin elevated, in the near future we will also consider putting him on Jardiance or Farxiga (2) Long-term insulin use: Code(s): Z79.4 - penitentiary (current) use of insulin Category: Medical Plan: See above (3) HLD (hyperlipidemia): Code(s): E78.5 - Hyperlipidemia, unspecified Category: Medical Qualifiers: Hyperlipidemia type: mixed hyperlipidemia Qualified Code(s): E78.2 - Mixed hyperlipidemia Plan: LDL within goal from March 2025 but he recently had a CVA, rosuvastatin was increased to 40 mg daily in March 2025. Continue rosuvastatin. (4) Hypertension: Code(s): I10 - Essential (primary) hypertension Category: Medical Qualifiers: Hypertension type: primary hypertension Qualified Code(s): I10 - Essential (primary) hypertension Plan: Continue current regimen. He would likely also benefit from an JORGE inhibitor/Arb, we will consider at next visit. (5) CKD (chronic kidney disease) stage 3, GFR 30-59 ml/min: Code(s): N18.30 - Chronic kidney disease, stage 3 unspecified Category: Medical Qualifiers: Chronic kidney disease stage 3 subtype: stage 3b (GFR 30-44) Qualified Code(s): N18.32 - Chronic kidney disease, stage 3b Plan: See above Plan I spent 30 minutes in reviewing the record, seeing the patient and documenting in the medical record. Orders: Orders 2 AMB Hemoglobin A1c Today E11.21 - Type 2 diabetes mellitus with diabetic nephropathy, Z13.9 - Encounter for screening, unspecified AMB Glucose Monitoring Today E11.65 - Type 2 diabetes mellitus with hyperglycemia, Z79.4 - penitentiary (current) use of insulin Medications: New 2 semaglutide (Ozempic) for 4 weeks 0.25 mg (0.368 mL) subcut QWEEK 3 mL 1RF Patient Instructions: Cotninue metformin 500 mg daily Start Ozempic weekly injection 0.25 mg weekly for 4 weeks, then increase to 0.5 mg weekly Once you start OZempic decrease insulin basagalar to 14 units daily Rule of 15 Treatment for Hypoglycemia (Low blood sugar) If your blood glucose is low (70 and below)*, follow the steps below to treat: Eat or drink something from the list below equal to 15 grams of carbohydrate (carb). Rest for 15 minutes Re-check your blood glucose. If it is still low, (below 70), repeat step 1 above. ? If your next meal is more than an hour away, you will need to eat one carbohydrate choice as a snack to keep your blood glucose from going low again. ?If you can't figure out why you have low blood glucose, call your healthcare provider, as your medicine may need to be adjusted. ?Always carry something with you to treat an insulin reaction. Use food from the list below. ? Foods equal to One Carbohydrate Choice (15 grams of carbohydrate): 3 Glucose ?tablets or 4 Dextrose tablets 4 ounces of fruit juice 5-6 ounces (about 1/2 can) of regular soda such as Coke or Pepsi ? 7-8 gummy or regular Life Savers ? 1 Tbsp. of sugar or jelly NOTE: If your blood sugar is less than 50, double the portion above for a total of 30 gm. ?Carbohydrate. ? Follow meal plan of 45-60 g of consistent carbohydrates at 3 meals each day and 15 g of carbohydrate at 1-2 snacks each day. Coding Level of Care Code Est Pt Level 4 (88574) Diagnoses Uncontrolled type 2 diabetes mellitus with hyperglycemia E11.65 Diabetes mellitus type: type 2 Long-term insulin use Z79.4 Mixed hyperlipidemia E78.2 Hyperlipidemia type: mixed hyperlipidemia Primary hypertension I10 Hypertension type: primary hypertension Stage 3b chronic kidney disease N18.32 Chronic kidney disease stage 3 subtype: stage 3b (GFR 30-44) CPT Codes Details - CPT: 85015 - Glucose monitoring, continuous-physician I&R ([id number]) Time Spent (min) 30
[2025-08-07 11:37] LABS: Glucose, Whole Blood 147 mg/dL (60-115)
== END 2025-08-07 12:03 | disposition home or self-care (01) ==
LOC: HO.ENCR 11:17
PROVIDERS: PCP Internal Medicine; Visit Provider Student in an Organized Health Care Education/Training Program
DX: E11.65 Type 2 diabetes mellitus with hyperglycemia (principal); Z79.4 Long term (current) use of insulin; E78.2 Mixed hyperlipidemia; I10 Essential (primary) hypertension; N18.32 Chronic kidney disease, stage 3b; Z13.9 Encounter for screening, unspecified; E11.21 Type 2 diabetes mellitus with diabetic nephropathy
CPT/HCPCS: 95251; 99214

== ENCOUNTER 2025-08-10 09:53 | Outpatient (AMB) | payer MEDICARE, OTHER, SELFPAY ==
--- NOTE | 2025-08-10 10:55 | A.OFFVIS_ITS ---
Intake Intake Visit Reasons: 60 min Draw Operator Required: No Accompanied by: Spouse Allergies No Known Allergies Allergy (Verified 08/05/25 08:32) HPI Comprehensive Diabetes Asmnt Most Recent Diabetes Results: 2 Hemoglobin A1c 6.8 % 07/23/19 Microalb/Creat Ratio, (<30) 208.5 ug/mg cr H 05/14/25 Cholesterol, (<200) 80 mg/dL 04/10/25 HDL Cholesterol, (>40) 32 mg/dL L 04/10/25 Triglycerides, (<150) 61 mg/dL 04/10/25 Creatinine, (0.5-1.4) 1.74 mg/dL H 08/07/25 BUN, (9-16) 32 mg/dL H 08/07/25 Sodium, (135-145) 141 mmol/L 08/07/25 Potassium, (3.3-5.1) 5.0 mmol/L 08/07/25 Chloride, (96-108) 108 mmol/L 08/07/25 Carbon Dioxide, (22-29) 27 mmol/L 08/07/25 Calcium, (8.4-10.2) 9.6 mg/dL 08/07/25 AST, (5-37) 23 U/L Δ 07/05/22 ALT, (0-40) 50 U/L H 07/05/22 Total Protein, (6.5-8.0) 7.3 g/dL 07/05/22 Albumin, (3.5-5.0) 4.3 g/dL 07/05/22 [facility] Medical History (Updated 08/05/25 @ 09:11 by WILLA Simeon) Type 2 diabetes with nephropathy Seizure CKD (chronic kidney disease) stage 3, GFR 30-59 ml/min Long-term insulin use CVA (cerebral vascular accident) Uncontrolled diabetes mellitus with hyperglycemia Insulin dependent type 2 diabetes mellitus HLD (hyperlipidemia) Word finding difficulty Hypertension Social History Housing: House Alcohol intake: never Patient Tobacco Use Status: Former Tobacco user Second Hand Smoke Exposure: No service: No Assessment & Plan Assessment & Plan (1) Type 2 diabetes with nephropathy: Code(s): E11.21 - Type 2 diabetes mellitus with diabetic nephropathy (2) Uncontrolled diabetes mellitus with hyperglycemia: Code(s): E11.65 - Type 2 diabetes mellitus with hyperglycemia Qualifiers: Diabetes mellitus type: type 2 Qualified Code(s): E11.65 - Type 2 diabetes mellitus with hyperglycemia Plan: Diabetes self-management education and support participation record Assessment/scale: 1= needs instructed? 2= needs review? 3= comprehend keep point? 4= demonstrates understanding/ competent? NC= Not Covered Topics Learning Objective: Initial visit Initial or post srvc Initial or post srvc Initial or post srvc Initial or post srvc Initial or post srvc Post srvc Comments Pre Edu-assessment/plan Outcome or reassess O utcome or reassess Outcome or reassess Outcome or reassess Outcome or reassess Outcome or reassess Diabetes pathophysiology 1 3 Healthy eating 1 4 Being active 1 3 Taking medication 1 3 Monitoring glucose 1 4 Acute complication 1 Chronic complicated 1 3 Lifestyle and healthy coping 1 Diabetes distress in support 1 ?Diabetes pathophysiology: ?Defined diabetes med identify own type of diabetes; list 3 options for treating diabetes Healthy eating: ?Described effect of type, amount and ?timing of food on blood glucose; list 3 methods for planning meal Being active: ?State effect of exercise on blood glucose level Taking medication: ?State effect of diabetes medications on diabetes; name diabetes medications taking, action and side effects Monitoring glucose: ?Identify recommended blood glucose targets and personal target Acute complication: ?List symptoms and treatment of hyper and hypoglycemia, DKA, sick day guidelines and guidelines for severe weather or situations of crisis and diabetes supply manage Chronic complication: ?To find the relationship of blood glucose levels to long- term complications of diabetes in screening and preventative measures Lifestyle and healthy coping: ?Described lifestyle and healthy coping strategies to rule out diabetes self-management Diabetes to stress and support: ?Recognize Diabetes to stress and be able to identified support options Learning objectives: The patient was provided with verbal and written education on the following topics as outlined below. The patient met all learning objectives and was able to verbalize understanding and provide teach back of education topics discussed . The patient was provided with the opportunity to ask questions and all questions were answered. Patient Assessment Assess patient education level/literacy/barriers, patient's A1c on 04/10/2025 10.5%, patient's A1c on 08/07/2025 6.9% Reviewed patient's glucose data from Jose Daniel 3+ sensors Learning objectives: The patient was provided with verbal and written education on the following topics as outlined below. Assess patient education level/literacy/barriers, patient has history of CVA with aphasia Patient questions/concerns, patient seen by CARO ELIZONDO recommended adding fiber to patient's breakfast choices. Patient is still expressing he feels on satisfied by meal choices. Recommended to patient and his the use [employer] for meal planning Patient also questioned accuracy of Jose Daniel 3 sensor, explained to patient sensor reads interstitial fluid glucose, glucometer reads blood glucose interstitial fluid glucose can run 5-15 minutes behind blood glucose. If you have questions about accuracy of sensor always follow-up with glucometer reading. The patient met all learning objectives and was able to verbalize understanding and provide teach back of education topics discussed . The patient was provided with the opportunity to ask questions and all questions were answered. Topics covered in today?s session included: Medications (If applicable) * Name of medication? * Dosing/administration instructions? * Mechanism of action? * Potential side effects? * Potential adverse reaction and appropriate treatment? * Review onset, peak, duration Assess for concerns re: insurance coverage, cost, barriers to compliance Insulin/Injectables (If applicable) * Storage/care of insulin?? * Injection sites? * Site rotation? * Onset, peak, duration * Drawing up insulin? * Injecting insulin/other injectables? * Sharps disposal Continuous blood glucose monitoring (if applicable) Hypoglycemia and Hyperglycemia * Signs and symptoms? * Causes?? * Treatment? * Preventing hypoglycemia? * When to seek medical attention Target Goals: * Blood glucose targets and how you feel when your blood glucose is in and out of your target ranges. * Monitoring and knowing your A1C. * What can make blood glucose go up and down and preventing high and low blood glucose. * Review of blood sugar targets in expected goal range and outside of expected goal range. * Problem solving and preventing hyper/hypoglycemia. * Sick day management of diabetes. * Using blood sugar results in decision making process in managing diabetes. ?Patient was receptive to information provided and participated in the discussion. Asked?appropriate questions and demonstrated good understanding of the topics discussed.? ? Educational Materials: The patient was provided with the following written educational materials: Target Goal handout Smart Goal Assessment:? Smart Goal: At 10-15 minutes of physical activity daily between now and next visit Pt met goal 75% New Smart Goal: Patient will use rule of 15s is to treat episodes of hypoglycemia Patient Response to instructions: Comprehension of Instructions: Fair Readiness to make changes: Contemplation How confident they feel about making changes: Positive Portions of this note were created using voice recognition software, please excuse any words or phrases that may have been misinterpreted. Plan s Coding Level of Care Code Est Pt Level 1 (94021) Diagnoses Type 2 diabetes with nephropathy E11.21 Uncontrolled type 2 diabetes mellitus with hyperglycemia E11.65 Diabetes mellitus type: type 2
--- OUTSIDE RECORDS SUMMARY | 2025-08-10 12:07 | XMS_ITS | Clinical Summary ---
Author Organization [facility] Address [address] [facility] [address] [place] [id number] Phone Care Team Providers Care Inspection Manager Name Role Phone Rony Messer MD Primary [...] Visit [facility] [address] [place] [address] Urvashi Gaxiola CCC-SERVICE RESTORER EMERGENCY SERVICE RESTORER EMERGENCY OASIS DISCHARGE VISIT 05/19/2025 2:30 PM EDT Home Care Visit [facility] [address] [place] [address] Urvashi Gaxiola CCC-SERVICE RESTORER EMERGENCY SERVICE RESTORER EMERGENCY HOME VISIT 05/15/2025 2:00 PM EDT Home Care [facility] [address] [place] [address] Jennifer Hatfield, PT PT DISCIPLINE DISCHARGE VISIT 05/14/2025 1:15 PM EDT Home Care Visit [facility] [address] [place] [address] Urvashi Gaxiola CCC-SERVICE RESTORER EMERGENCY SERVICE RESTORER EMERGENCY HOME VISIT 05/12/2025 10:15 AM EDT Home Care Visit [facility] [address] [place] [address] Urvashi Gaxiola CCC-SERVICE RESTORER EMERGENCY SERVICE RESTORER EMERGENCY HOME VISIT from Last 3 Months Social History Tobacco [...] MEDICARE SUPPLEMENT MEDICARE PART A & B [facility] MEDICARE SUPPLEMENT MEDICARE PART A & B MEDICARE SUPPLEMENT MEDICARE PART A & B [facility] MEDICARE SUPPLEMENT MEDICARE PART A & B MEDICARE SUPPLEMENT MEDICARE PART A & B [facility] MEDICARE SUPPLEMENT Care Teams Inspection Manager Relationship Specialty Start Date End Date Rony Messer MD [address] [place] [address] [address] [place] [address] PCP - General Internal Medicine 04/12/25 Additional Source Comments The information contained in this document represents components of the legal health record. It is not the complete legal health record.[facility]
== END 2025-08-10 10:59 | disposition home or self-care (01) ==
LOC: HO.ENCR 09:54
PROVIDERS: PCP Internal Medicine; Visit Provider Registered Nurse Diabetes Educator
DX: E11.21 Type 2 diabetes mellitus with diabetic nephropathy (principal); E11.65 Type 2 diabetes mellitus with hyperglycemia

== ENCOUNTER → 2025-08-10 09:53 | Outpatient (BNVA) | payer MEDICARE, OTHER, SELFPAY | PROVIDERS: PCP Internal Medicine; Visit Provider Registered Nurse Diabetes Educator | DX: E11.21 Type 2 diabetes mellitus with diabetic nephropathy (principal); E11.65 Type 2 diabetes mellitus with hyperglycemia; Z79.4 Long term (current) use of insulin | CPT/HCPCS: 99211 ==

== ENCOUNTER 2025-10-07 15:23 | Outpatient (AMB) | payer MEDICARE, OTHER, SELFPAY ==
--- NOTE | 2025-10-07 15:25 | A.OFFVIS_ITS ---
Vital Signs 10/07/25 15:33 Height 5 ft 10 in Weight 167 lb 8.821 oz BMI 24.0 BP 156/78 H Blood Pressure Location Rt brachial Position Sitting Pulse 88 Pulse Source Pulse Oximeter Pulse Oximetry (%) 98 Oxygen Delivery Method Room Air Intake Visit Reasons: DM Follow-UP Intake Note: Patient presents today for a follow-up on Type 2 Diabetes Mellitus: Last Diabetic eye exam was on: 07/2025 Last Podiatry exam was on: 07/2025 Most recent HbA1c: 6.9%, 08/07/2025 Random Glucose: 188 mg/dL Dock Operator Required: No Accompanied by: Significant Other Allergies No Known Allergies Allergy (Verified 10/07/25 15:26) Medication List - Last Reconciled 10/07/25 by Alessandra Coleman MD amlodipine 10 mg PO DAILY ammonium lactate 12% appl topical BID aspirin 81 mg PO DAILY blood sugar diagnostic (FreeStyle Lite Strips) As directed to check blood sugars three times a day blood sugar diagnostic (FreeStyle Test strips) As directed to check blood sugars three times a day blood-glucose meter (FreeStyle Lite Meter kit) As directed to check blood sugars 3 times a day blood-glucose sensor (FreeStyle Jose Daniel 3 Plus Sensor device) As directed every 14 days blood-glucose,print line inspector,cont (FreeStyle Jose Daniel 3 [place]) As directed clopidogrel (Plavix) 75 mg PO DAILY insulin glargine (Basaglar KwikPen U-100 Insulin) 20 units (0.2 mL) subcut DAILY levetiracetam 750 mg PO BID metformin ER 500 mg PO DAILY pen needle, diabetic USE DIRECTED rosuvastatin 40 mg PO DAILY 90 days semaglutide (Ozempic) 0.5 mg subcut QWEEK HPI Comments Details: 74-year-old male coming in today for follow up of type 2 diabetes mellitus. Medical problems: CVA, hypertension, hyperlipidemia. Here today with Maru, significant other . History of diabetes Diagnosed in 60s after suffering a stroke and found to be hyperglycemic Current regimen: Basagalar 10 units daily at 11 AM. Decreased from 12 due to low glucose when ozempic started Metformin ER 500 mg daily ozempic 0.5mg weekly Denies any symptoms of hyperglycemia including polyphagia, polyuria, polydipsia. Denies any hypoglycemic symptoms. A1c 04/10/2025 10.5% POC 08/07/2025 A1c 6.9% Freestyle Jose Daniel downloaded Time CGM active Average glucose 171 mg/dL GMI 7.4% Glucose variability 21.1% Within target range 64% High 33% Very high 3% Low 0% Very low 0% Interpretation: Slightly worsened blood glucose control over the past 2 weeks. Patient tells me he is eating multiple handfuls of grapes per day He is also eating oatmeal every morning Complications Eye exam: Last eye exam 07/30/25 , doesnt know if history of retinopathy, Last Podiatry Visit: 07/2025 Neuropathy: does have symptoms of numbness tingling but not too bothersome, Kidney disease: CKD stage IIIB, 04/12/2025 GFR 34, never seen estate administrator, urine microalbumin elevated at 208.5 from 05/14/2025. Macrovascular complications: CVA X 2, most recently in March 2025 was found to have a acute/subacute ICA infarct Statin: Rosuvastatin 40 mg daily, LDL 36 from 04/10/2025 JORGE/ARB: none Exercise: no Diet control: Breakfast 8 AM: coffee , oatmeal Snack at 11 AM: atkins protein bar Lunch noon : canned soup or canned stew, or sandwich with fruits Supper He has never had any hospitalizations for hyperglycemia/hypoglycemia. ROS CONSTITUTIONAL: Denies weight loss, fever and chills. HEENT: Denies changes in vision and hearing. RESPIRATORY: Denies SOB and cough. CV: Denies palpitations and CP GI: Denies abdominal pain, nausea, vomiting and diarrhea. : Denies dysuria and urinary frequency. MSK: Denies new myalgia and joint pain. SKIN: Denies rash and pruritus. NEUROLOGICAL: Denies headache PSYCHIATRIC: Denies recent changes in mood. Physical exam General: sitting comfortably in no acute distress HEENT: normocephalic/atraumatic, Neck: supple, symmetrical Cardiac: normal heart sounds Pulm: normal breath sounds B/L, no added breath sounds Abd: not distended, no tenderness Extremities: Mild bilateral pedal edema Foot exam: done 04/23/25 intact sensation to monofilament, intact pulses, , well- perfused, however very poor foot care, elongated nails, PFSH Medical History Type 2 diabetes with nephropathy Seizure CKD (chronic kidney disease) stage 3, GFR 30-59 ml/min Long-term insulin use CVA (cerebral vascular accident) Uncontrolled diabetes mellitus with hyperglycemia Insulin dependent type 2 diabetes mellitus HLD (hyperlipidemia) Word finding difficulty Hypertension Family History (Updated 10/07/25 @ 15:26 by AMERICA Kumar) Father No problems noted. Mother No problems noted. Social History Housing: House Alcohol intake: never Patient Tobacco Use Status: Former Tobacco user Second Hand Smoke Exposure: No service: No Physical Exam Vital Signs: Last Vital Signs Pulse 88 10/07/25 15:33 BP 156/78 H 10/07/25 15:33 Pulse Ox 98 10/07/25 15:33 Oxygen Delivery Method Room Air 10/07/25 15:33 BMI result Body Mass Index 24.0 Results Reviewed Results Reviewed: Laboratory Last Values Glucose (Clinic) 188 mg/dL (60-115) H 10/07/25 15:39 Assessment & Plan Assessment & Plan (1) Uncontrolled diabetes mellitus with hyperglycemia: Code(s): E11.65 - Type 2 diabetes mellitus with hyperglycemia Category: Medical Qualifiers: Diabetes mellitus type: type 2 Qualified Code(s): E11.65 - Type 2 diabetes mellitus with hyperglycemia Plan 75 year old with diabetes presenting for follow up Patient on ozempic x 2 months now at 0.5mg weekly. Will hold at current dose Increase metformin to 1000mg daily Continue basaglar 10 units daily Limit grapes to one serving per day (10 grapes). Return in 6 weeks for A1C or sooner as needed Medications: Changed From metformin ER 500 mg PO DAILY 90 tabs 1RF To metformin ER 1,000 mg (2 x 500 mg) PO DAILY 180 tabs 3RF Alessandra Coleman MD From insulin glargine (Basaglar KwikPen U-100 Insulin) 20 units (0.2 mL) subcut DAILY 45 mL 1RF To Basaglar KwikPen U-100 Insulin (insulin glargine) 10 units (0.1 mL) subcut DAILY 15 mL 1RF NS Alessandra Coleman MD From semaglutide (Ozempic) for 4 weeks 0.25 mg (0.368 mL) subcut QWEEK 3 mL 1RF To semaglutide (Ozempic) for 4 weeks 0.5 mg subcut QWEEK Radha Krause MD Coding Level of Care Code Est Pt Level 4 (80724) Diagnoses Uncontrolled type 2 diabetes mellitus with hyperglycemia E11.65 Diabetes mellitus type: type 2
[2025-10-07 15:33] VITALS: BP 156/78; PULSE 88; O2SAT 98; BMI 24.0
[2025-10-07 15:43] LABS: Glucose, Whole Blood 188 mg/dL (60-115)
--- OUTSIDE RECORDS SUMMARY | 2025-10-08 03:59 | XMS_ITS | Clinical Summary ---
Author Organization [facility] Address [address] [facility] [address] [place] [phone] Phone Care Team Providers Care Car Servicer Name Role Phone Rony Messer MD Primary [...] 2 (two) times a day. 05/06/2018 Active Social History Tobacco Use Types Packs/Day Years [...] file Insurance MEDICARE PART A & B [facility] MEDICARE SUPPLEMENT MEDICARE PART A & B MEDICARE SUPPLEMENT MEDICARE PART A & B MEDICARE SUPPLEMENT MEDICARE PART A & B MEDICARE SUPPLEMENT MEDICARE PART A & B Member Subscriber Plan / Payer ( fective 2014-) Name:Lucas Acosta Member ID:[id number] Relation to Subscriber:Self Name:Lucas Acosta Subscriber ID:[id number] Payer ID:[id number] Group ID:Not on file Type:Medicare Address: [employer] [address] [place], [place] [id number] [place] [address] MEDICARE SUPPLEMENT MEDICARE PART A & B [facility] MEDICARE SUPPLEMENT Care Teams Car Servicer Relationship Specialty Start Date End Date Rony Messer MD [address] [place] [id number] PCP - General Internal Medicine 04/12/25 Additional Source Comments The information contained in this document represents components of the legal health record. It is not the complete legal health record.[facility]
== END 2025-10-07 16:08 | disposition home or self-care (01) ==
LOC: HO.ENCR 15:24
PROVIDERS: PCP Internal Medicine; Visit Provider Internal Medicine
DX: E11.65 Type 2 diabetes mellitus with hyperglycemia (principal)

== ENCOUNTER → 2025-10-07 15:23 | Outpatient (BNVA) | payer MEDICARE, OTHER, SELFPAY | PROVIDERS: PCP Internal Medicine; Visit Provider Internal Medicine | DX: E11.65 Type 2 diabetes mellitus with hyperglycemia (principal); Z79.4 Long term (current) use of insulin; Z79.84 Long term (current) use of oral hypoglycemic drugs; Z79.85 Long-term (current) use of injectable non-insulin antidiabetic drugs; Z87.891 Personal history of nicotine dependence; I10 Essential (primary) hypertension; E78.5 Hyperlipidemia, unspecified; Z79.82 Long term (current) use of aspirin; Z79.01 Long term (current) use of anticoagulants | CPT/HCPCS: 82947; 99212 ==

== ENCOUNTER 2025-11-09 11:30 | Outpatient (AMB) | payer MEDICARE, OTHER, SELFPAY ==
--- NOTE | 2025-11-09 11:38 | MHC.PC.OV ---
Vital Signs 11/09/25 11:43 11/09/25 12:15 Height 5 ft 10 in Weight 74.956 kg BMI 23.7 BP 142/64 H 136/86 Respiration 16 Pulse 81 Pulse Source Pulse Oximeter Temp 97.2 F Temp Source Temporal Artery Scan Pulse Oximetry (%) 99 Oxygen Delivery Method Room Air Intake Visit Reasons: 3 Month F/U / From [employer] Required: No Accompanied by: Self / Same As Patient Allergies No Known Allergies Allergy (Verified 11/09/25 11:38) Medication List - Last Reconciled 11/09/25 by WILLA Simeon amlodipine 10 mg PO DAILY ammonium lactate 12% appl topical BID aspirin 81 mg PO DAILY Basaglar KwikPen U-100 Insulin (insulin glargine) 10 units (0.1 mL) subcut DAILY NS blood sugar diagnostic (FreeStyle Lite Strips) As directed to check blood sugars three times a day blood sugar diagnostic (FreeStyle Test strips) As directed to check blood sugars three times a day blood-glucose meter (FreeStyle Lite Meter kit) As directed to check blood sugars 3 times a day blood-glucose sensor (FreeStyle Jose Daniel 3 Plus Sensor device) As directed every 14 days blood-glucose,quartz miner,cont (FreeStyle Jose Daniel 3 [place]) As directed clopidogrel (Plavix) 75 mg PO DAILY levetiracetam 750 mg PO BID metformin ER 1,000 mg (2 x 500 mg) PO DAILY Ozempic (semaglutide) 0.5 mg (0.736 mL) subcut QWEEK NS pen needle, diabetic USE DIRECTED rosuvastatin 40 mg PO DAILY 90 days Tobacco use date assessed: 11/09/25 Fall risk assessment: No Falls in past year Last assessed Fall Risk: 11/09/25 Dental Screening Dental Screen Date: 11/09/25 Did you have a dental visit in the last 12 months?: No Did you have a dental problem in the last 6 months where you did not have access to dental care?: No Was dental information given to patient?: Patient declined HPI HPI Comments History of Present Illness Details 74-year-old male with history of CKD stage 3, type 2 diabetes, hyperlipidemia, hypertension, carotid stenosis, history of CVA with persistent expressive aphasia, and recent CVA presents to the office today accompanied by his for management of chronic conditions. Type 2 diabetes- following with endo. Most recent A1c POC from 08/07 6.9%. Wearing freestyle Jose Daniel, average glucose has decreased from 171 --> 141, 91% within target range. Previously has been noncompliant with diabetic diet, but has improved significantly. Has upcoming appointment with Dr. Coleman on 12/02. Diabetic eye exam is up-to-date but it is unclear if he does have complication including retinopathy. His states that he was referred to a retina specialist but patient declined. He continues on metformin 1000 mg daily, 10 units of Basaglar, Ozempic 0.5 mg weekly. Diabetic nephropathy-last GFR 38. Significant proteinuria 208.5 ratio. Not following with nephro HTN- initial bp 152/64, recheck 124/70. Compliant with amlodipine 10 mg daily HLD/history CVA/seizure disorder/carotid stenosis-on rosuvastatin 40 mg daily and dual antiplatelet therapy. No recent seizure activity, per patient last seizure 8 months ago. Does still have some expressive aphasia. Was referred to Neurology, but he did cancel appointment. CKD stage 3-last GFR 34, creatinine 1.92 Concerns: None ROS: General: No fevers, malaise, unintentional weight loss HEENT: No blurred vision, diplopia. No sore throat, nasal congestion, rhinorrhea, sinus pain, ear pain Cardiovascular: No chest pain, palpitations, or leg edema Respiratory: No shortness of breath, wheezing, cough GI: No abdominal pain, nausea, vomiting, diarrhea, constipation, melena, hematochezia : No dysuria, hematuria, increased urinary frequency, decreased urinary output MSK: No myalgia, back pain Neuro: No headaches, weakness, paresthesias Skin: No rashes or lesions EXAM: Constitutional - Awake and Alert, No apparent distress Eyes - PERRL Cardiovascular - S1S2, RRR, No edema Respiratory - Normal lung expansion, Normal respiratory effort, No respiratory distress, CTA bilaterally Extremities - no calf tenderness bilaterally, no swelling Skin - Warm/Dry Neurological - Alert & oriented x3 Psychological - Appropriate affect some garbled speech [facility] Medical History Type 2 diabetes with nephropathy Seizure CKD (chronic kidney disease) stage 3, GFR 30-59 ml/min Long-term insulin use CVA (cerebral vascular accident) Uncontrolled diabetes mellitus with hyperglycemia Insulin dependent type 2 diabetes mellitus HLD (hyperlipidemia) Word finding difficulty Hypertension Family History (Updated 10/07/25 @ 15:26 by AMERICA Kumar) Father No problems noted. Mother No problems noted. Social History Housing: House Alcohol intake: never Patient Tobacco Use Status: Former Tobacco user e-Cigarette/Vaping Use: Never Used Second Hand Smoke Exposure: No service: No Current occupational status: retired Cognitive needs: No Hearing needs: No Vision needs: Yes (Reading glasses PRN) Questionnaire Thrive Questionnaire Date Thrive assessed: 04/21/25 JULIA-7 AMB Questionnaire JULIA-7 Date JULIA - 7 assessed: 04/21/25 Source: Developed by Drs. Arben Stafford, Kyung Perla, Ja Delarosa and colleagues, with an educational gilma from [employer]. Physical exam (Primary Care) Tobacco/Smoking Status: Tobacco use Status Patient Tobacco Use Status Former Tobacco user 11/09/25 11:40 Thrive Assessment: Date of Thrive Assessment Date Thrive assessed 04/21/25 11/09/25 11:40 Coding Level of Care Code Est Pt Level 4 (35529) Add On Problem Visit Only Diagnoses Type 2 diabetes mellitus with proteinuria E11.29; R80.9 Primary hypertension I10 Hypertension type: primary hypertension Mixed hyperlipidemia E78.2 Hyperlipidemia type: mixed hyperlipidemia Expressive aphasia R47.01 Assessment & Plan Assessment & Plan (1) Type 2 diabetes mellitus with proteinuria: Code(s): E11.29 - Type 2 diabetes mellitus with other diabetic kidney complication; R80.9 - Proteinuria, unspecified Category: Medical Plan: Serum A1c ordered. Prior A1c he is reasonably controlled for age. Counseled on diabetic diet. We will request notes from ophthalmology. We will continue monitoring renal function electrolyte level and BMP is ordered. Microalbuminuria screen is ordered. We will consider referral to Nephrology considering results. Continue following with endocrinology, most recent note reviewed. Continue current therapies (2) Hypertension: Code(s): I10 - Essential (primary) hypertension Category: Medical Qualifiers: Hypertension type: primary hypertension Qualified Code(s): I10 - Essential (primary) hypertension Plan: Controlled. Continue amlodipine 10 mg daily (3) HLD (hyperlipidemia): Code(s): E78.5 - Hyperlipidemia, unspecified Category: Medical Qualifiers: Hyperlipidemia type: mixed hyperlipidemia Qualified Code(s): E78.2 - Mixed hyperlipidemia Plan: Lipid panel ordered. Continue rosuvastatin 40 mg daily (4) Expressive aphasia: Code(s): R47.01 - Aphasia Category: Medical Plan: Stable. Continue statin, aspirin/Plavix for history of CVA Plan Follow-up in the office in 4 months, labs to be completed today Orders: Orders Basic Metabolic Panel Today E11.21 - Type 2 diabetes mellitus with diabetic nephropathy, E78.2 - Mixed hyperlipidemia, I10 - Essential (primary) hypertension Hemoglobin A1c Today E11.21 - Type 2 diabetes mellitus with diabetic nephropathy, E78.2 - Mixed hyperlipidemia, I10 - Essential (primary) hypertension Lipid Panel Today E11.21 - Type 2 diabetes mellitus with diabetic nephropathy, E78.2 - Mixed hyperlipidemia, I10 - Essential (primary) hypertension Microalbumin, Random (w Creat) Today E11.29 - Type 2 diabetes mellitus with other diabetic kidney complication, R80.9 - Proteinuria, unspecified Patient Instructions: Take metformin 1000mg (2 tabs) daily Take ozempic 0.5mg weekly Continue basaglar 10 units daily, UNLESS: Check glucose- if glucose levels are falling into the 90s or if you feel dizzy, decrease basaglar by 2 units.
[2025-11-09 11:43] VITALS: BP 142/64; PULSE 81; RESP 16; TEMP 36.2; O2SAT 99; BMI 23.7
[2025-11-09 12:15] VITALS: BP 136/86
--- OUTSIDE RECORDS SUMMARY | 2025-11-09 14:44 | XMS_ITS | Clinical Summary ---
Author Organization [facility] Address [address] [place] [id number] Phone Care Team Providers Care User Experience Manager Name Role Phone Rony Messer MD [...] file Insurance MEDICARE PART A & B [facility] MEDICARE SUPPLEMENT [facility] Address: [address] [address] MEDICARE PART A & B MEDICARE SUPPLEMENT MEDICARE PART A & B MEDICARE SUPPLEMENT MEDICARE PART A & B MEDICARE SUPPLEMENT MEDICARE PART A & B Member Subscriber Plan / Payer ( fective 2014-) Name:Lucas Acosta Member ID:[id number] Relation to Subscriber:Self Name:Lucas Acosta Subscriber ID:[id number] Payer ID:[id number] Group ID:Not on file Type:Medicare Address: [employer] [address] [place], [place] [id number] [place] [address] MEDICARE SUPPLEMENT MEDICARE PART A & B [facility] MEDICARE SUPPLEMENT Care Teams User Experience Manager Relationship Specialty Start Date End Date Rony Messer MD [address] [place] [id number] PCP - General Internal Medicine 04/12/25 Additional Source Comments The information contained in this document represents components of the legal health record. It is not the complete legal health record.[facility]
== END 2025-11-09 13:15 | disposition home or self-care (01) ==
LOC: HO.HMCHD 11:30
PROVIDERS: PCP Internal Medicine; Visit Provider Physician Assistant
DX: E11.29 Type 2 diabetes mellitus with other diabetic kidney complication (principal); R80.9 Proteinuria, unspecified; I10 Essential (primary) hypertension; E78.2 Mixed hyperlipidemia; R47.01 Aphasia

== ENCOUNTER → 2025-11-09 11:30 | Outpatient (BNVA) | payer MEDICARE, OTHER, SELFPAY | PROVIDERS: PCP Internal Medicine; Visit Provider Physician Assistant | DX: E11.29 Type 2 diabetes mellitus with other diabetic kidney complication (principal); R80.9 Proteinuria, unspecified; E78.2 Mixed hyperlipidemia | CPT/HCPCS: 99212 ==